=== PATIENT | female | born 1955 | race Caucasian/White ===

== ENCOUNTER 2016-08-23 12:30 | Inpatient (IN) ==
--- NOTE | 2016-08-23 13:06 | Emergency Department Note ---
Disposition Clinical Impression: Cough, Pneumonia, Asthma, Hypoxemia, Frail elderly, Abnormal EKG, Hypokalemia Disposition: Admitted As Inpatient Referrals: NO,PCP [Non-Partnered Physician] - Forms: ED Satisfaction Letter General Adult HPI - General Chief complaint: ED Upper Respiratory Infection Stated complaint: cold symptoms Time Seen by Provider: 08/23/16 12:48 Source: patient Limitations: no limitations - History of Present Illness HPI Narrative: 61-year-old female reports an emergent department complaining of a cough runny nose and sore throat. She describes a history of asthma, she does not take breathing medications regularly. She denies any oxygen requirement. There is no history of chest pain, no leg swelling or pain or coughing up blood. The patient has no personal history of CAD, PE DVT or cancer. There is no history of fever. The patient reports she has been symptomatic for about a week. The patient denies any acute abdominal pain. She has had a few episodes of nonbloody diarrhea. No vomiting. She states she lives alone. She is a nonsmoker. The patient reports no other acute complaints or concerns. Upper respiratory/bronchitic symptoms are reported. Per history she has a history of COPD as well as CHF. She denies any orthopnea. She has had some slight shortness of breath. Onset (ago): day(s) Pain Scale: 8 - Related Data Home Medications Medication Instructions Recorded Confirmed Calcium Carbonate/Vitamin D3 1 each PO BID 07/24/15 09/19/15 [Calcium 600 + D Tablet] Citalopram [CeleXA] 10 mg PO DAILY 07/24/15 09/19/15 Alendronate Sodium [Fosamax] 35 mg PO QWEEK 09/19/15 09/19/15 Aspirin 325 mg PO DAILY 09/19/15 09/19/15 Bisacodyl [Dulcolax] 5 mg PO DAILY PRN 09/19/15 09/19/15 Carbidopa/Levodopa 25 [Sinemet 1 each PO TID 09/19/15 09/19/15] Ibuprofen [Motrin] 200 mg PO Q6HR 09/19/15 09/19/15 Lisinopril [Zestril] 20 mg PO DAILY 09/19/15 09/19/15 Previous Rx's Medication Instructions Recorded Oxycodone HCl/Acetaminophen 1 tab PO Q6H PRN #26 tab 09/19/15 [Percocet 10-325 mg Tablet] Naproxen [Naprosyn] 500 mg PO BID #20 tablet 03/18/16 TraMADol [Ultram] 50 mg PO Q6HR #20 tablet 03/18/16 Nitrofurantoin (BID) [Macrobid] 100 mg PO BID #14 capsule 04/27/16 Azithromycin [Azithromycin 6-Tab 250 mg PO PER PKG DI #6 tab 06/02/16 Pack] Acetaminophen [Tylenol] 650 mg PO Q6HR 5 Days 08/16/16 Benzonatate [Tessalon] 200 mg PO TID PRN #10 capsule 08/18/16 PredniSONE 40 mg PO DAILY #5 tablet 08/18/16 Allergies Allergy/AdvReac Type Severity Reaction Status Date / Time No Known Allergies Allergy Verified 08/23/16 12:38 All systems ED: reviewed and negative except as stated. Past Medical History - Past Medical History Medical history: Reports: asthma, CHF, COPD, other Surgical history: Reports: no surgical history Psychiatric history: Reports: schizophrenia, other AIR QUALITY ENGINEER history: Reports: no AIR QUALITY ENGINEER history - Social History Smoking Status: Never smoker Smokeless Tobacco Status: No Alcohol use: Reports: none Drug use: Reports: none Physical Exam - General Limitations: no limitations General appearance: alert, in no apparent distress - Head Head exam: atraumatic - Eye Eye exam: Present: normal appearance, PERRL, EOMI. Absent: scleral icterus, conjunctival injection - ENT ENT exam: normal exam, normal oropharynx, mucous membranes moist, TM's normal bilaterally, normal external ear exam - Neck Neck exam: Present: normal inspection, full ROM, trachea midline. Absent: tenderness - Chest Chest inspection: Present: normal inspection, symmetric chest wall rise. Absent : tenderness - Respiratory Respiratory exam: Present: wheezes, prolonged expiratory phase. Absent: respiratory distress - Cardiovascular Cardiovascular exam: Present: regular rate, normal rhythm, normal heart sounds - Abdominal Exam Abdominal exam: Present: soft, Non-Tender. Absent: tenderness, distention, guarding, rebound, rigidity - Extremities Exam Extremities exam: Present: normal inspection, full ROM, normal capillary refill. Absent: tenderness, pedal edema, joint swelling, calf tenderness - Expanded Lower Extremity Exam Hip/Pelvis exam: Absent: tenderness Lower leg exam: Absent: Homans' sign Neurovascular/Tendon exam: Present: normal capillary refill, other (Chronic stasis changes lower extremities without significant edema.). Absent: pulse deficit, motor deficit, sensory deficit, tendon deficit - Back Exam Back exam: Absent: tenderness, CVA tenderness (R), CVA tenderness (L), vertebral tenderness - Neurological Exam Neurological exam: Present: alert, oriented X3, CN II-XII intact. Absent: motor sensory deficit - Psychiatric Psychiatric exam: Present: normal affect - Skin Skin exam: Present: warm, dry, intact, normal color. Absent: rash, cyanosis, diaphoresis, erythema, pallor, mottled Course Vital Signs Temperature 98.4 F 08/23/16 12:33 Pulse Rate 97 08/23/16 12:33 Respiratory Rate 18 08/23/16 12:33 Blood Pressure 149/87 08/23/16 12:33 O2 Sat by Pulse Oximetry 94 L 08/23/16 12:33 Temperature 98.4 F 08/23/16 12:33 Pulse Rate 101 08/23/16 16:30 Respiratory Rate 18 08/23/16 16:30 Blood Pressure 143/98 08/23/16 16:30 O2 Sat by Pulse Oximetry 96 08/23/16 16:30 Oxygen Delivery Oxygen Delivery Room Air Medical Decision Making - [facility] Narrative Medical decision making narrative: The patient has coarse breath sounds on the right and had initial low oxygen levels. She states she has a history of asthma. The patient appears to have pneumonia. The patient lives alone and stays alone at night, I discussed the case with her home health nurse who reports she feels very uncomfortable having the patient come back. She does not feel the patient is safe for home management. The patient does not feel comfortable going home either. The patient has an element of hypokalemia as well. Blood cultures were sent antibiotics were given breathing medications were ordered, Solu-Medrol was given. Potassium was ordered. Based on the patient's age, asthma, apparent pneumonitis, hypoxemia, and hypokalemia, I thought it would be best to observe the patient. I consulted the hospitalist for admission. - Lab Data Lab results reviewed: Yes I reviewed the patient's lab results. Result diagrams: 08/23/16 14:53 08/23/16 14:53 Lab Results 08/23/16 08/23/16 08/23/16 Range/Units 14:53 14:53 14:53 WBC 12.9 H (4.3-11.1) K/mcL RBC 4.83 (3.82-4.97) M/mcL Hgb 14.4 (11.5-15.4) g/dL Hct 41.4 (35.3-44.9) % MCV 85.7 (83.0-100.0) fL MCH 29.8 (28.0-33.3) pg MCHC 34.8 (31.6-35.5) g/dL RDW 12.9 (11.5-14.5) % Plt Count 348 (140-400) K/mcL MPV 10.0 (9.4-12.4) fL Immature Gran % 1.9 (0-4) % Seg Neutrophils % 76.5 % Lymphocytes % 15.3 % Monocytes % 4.7 % Eosinophils % 1.1 % Basophils % 0.5 % Neutrophils # 9.9 H (1.6-8.9) K/mcL Lymphocytes # 2.0 (0.6-4.6) K/mcL Monocytes # 0.6 (0.0-1.3) K/mcL Eosinophils # 0.1 (0.0-0.6) K/mcL Basophils # 0.1 (0.0-0.2) K/mcL Sodium 139 (136-145) mEq/L Potassium 2.7 L (3.5-4.5) mEq/L Chloride 96 L (98-109) mEq/L Carbon Dioxide 31 H (19-29) mEq/L BUN 27 H (7-20) mg/dL Creatinine 0.95 (0.57-1.11) mg/dL Est GFR ( Amer) > 60 (> 60) Est GFR (Non-Af Amer) 60 (> 60) BUN/Creatinine Ratio 28 H (6-26) Glucose 130 H (70-99) mg/dL Calculated Osmolality 295 (280-300) Lactic Acid (0.5-2.2) mmol/L Calcium 9.8 (8.6-10.8) mg/dL Total Bilirubin 0.4 (0.2-1.2) mg/dL Direct Bilirubin 0.2 (0.0-0.5) mg/dL Indirect Bilirubin 0.2 (0.0-1.2) mg/dL AST 24 (5-34) Units/L ALT 8 (0-55) Units/L Alkaline Phosphatase 114 (38-126) Units/L Troponin I 0.02 (0-0.03) ng/mL C-Reactive Protein 11 H (Less than 5) mg/L B-Natriuretic Peptide (0-100) pg/mL Serum Total Protein 8.1 (6.0-8.3) g/dL Albumin 3.6 (3.5-5.0) g/dL Globulin 4.5 H (2.4-3.5) g/dL Albumin/Globulin Ratio 0.8 L (1.1-2.2) 08/23/16 08/23/16 Range/Units 14:53 15:35 WBC (4.3-11.1) K/mcL RBC (3.82-4.97) M/mcL Hgb (11.5-15.4) g/dL Hct (35.3-44.9) % MCV (83.0-100.0) fL MCH (28.0-33.3) pg MCHC (31.6-35.5) g/dL RDW (11.5-14.5) % Plt Count (140-400) K/mcL MPV (9.4-12.4) fL Immature Gran % (0-4) % Seg Neutrophils % % Lymphocytes % % Monocytes % % Eosinophils % % Basophils % % Neutrophils # (1.6-8.9) K/mcL Lymphocytes # (0.6-4.6) K/mcL Monocytes # (0.0-1.3) K/mcL Eosinophils # (0.0-0.6) K/mcL Basophils # (0.0-0.2) K/mcL Sodium (136-145) mEq/L Potassium (3.5-4.5) mEq/L Chloride (98-109) mEq/L Carbon Dioxide (19-29) mEq/L BUN (7-20) mg/dL Creatinine (0.57-1.11) mg/dL Est GFR ( Amer) (> 60) Est GFR (Non-Af Amer) (> 60) BUN/Creatinine Ratio (6-26) Glucose (70-99) mg/dL Calculated Osmolality (280-300) Lactic Acid 2.0 (0.5-2.2) mmol/L Calcium (8.6-10.8) mg/dL Total Bilirubin (0.2-1.2) mg/dL Direct Bilirubin (0.0-0.5) mg/dL Indirect Bilirubin (0.0-1.2) mg/dL AST (5-34) Units/L ALT (0-55) Units/L Alkaline Phosphatase (38-126) Units/L Troponin I (0-0.03) ng/mL C-Reactive Protein (Less than 5) mg/L B-Natriuretic Peptide 14 (0-100) pg/mL Serum Total Protein (6.0-8.3) g/dL Albumin (3.5-5.0) g/dL Globulin (2.4-3.5) g/dL Albumin/Globulin Ratio (1.1-2.2) - Radiology Data Radiology results reviewed: Yes I reviewed the patient's radiology results.
[2016-08-23] MEDS ORDERED: Ipratropium/Albuterol Neb 3 ML IH ONE ×2 (13:14→16:13)
[2016-08-23 15:07] LABS: Basophils # 0.1 K/mcL (0.0-0.2); Basophils % 0.5 %; Eosinophils # 0.1 K/mcL (0.0-0.6); Eosinophils % 1.1 %; Hematocrit 41.4 % (35.3-44.9); Hemoglobin 14.4 g/dL (11.5-15.4); Immature Granulocytes % 1.9 % (0-4); Lymphocytes % 15.3 %; Mean Corpuscular HGB Conc 34.8 g/dL (31.6-35.5); Mean Corpuscular Hemoglobin 29.8 pg (28.0-33.3); Mean Corpuscular Volume 85.7 fL (83.0-100.0); Monocytes # 0.6 K/mcL (0.0-1.3); Monocytes % 4.7 %; Neutrophils # 9.9 K/mcL (1.6-8.9); Platelet Count 348 K/mcL (140-400); Red Blood Count 4.83 M/mcL (3.82-4.97); Red Cell Distribution Width 12.9 % (11.5-14.5); Segmented Neutrophils % 76.5 %
[2016-08-23 15:23] LABS: Alanine Aminotransferase 8 Units/L (0-55); Albumin 3.6 g/dL (3.5-5.0); Albumin/Globulin Ratio 0.8 (1.1-2.2); Alkaline Phosphatase 114 Units/L (38-126); Aspartate Amino Transferase 24 Units/L (5-34); BUN/Creatinine Ratio 28 (6-26); Bilirubin,Direct 0.2 mg/dL (0.0-0.5); Bilirubin,Indirect 0.2 mg/dL (0.0-1.2); Bilirubin,Total 0.4 mg/dL (0.2-1.2); Blood Urea Nitrogen 27 mg/dL (7-20); Calcium 9.8 mg/dL (8.6-10.8); Carbon Dioxide 31 mEq/L (19-29); Chloride 96 mEq/L (98-109); Globulin 4.5 g/dL (2.4-3.5); Glucose 130 mg/dL (70-99); Osmolality,Calculated 295 (280-300); Potassium 2.7 mEq/L (3.5-4.5); Sodium 139 mEq/L (136-145); Total Protein 8.1 g/dL (6.0-8.3); eGFR For African Americans > 60 (> 60); eGFR For Non-African Americans 60 (> 60)
[2016-08-23] MEDS ORDERED: Levofloxacin 750 MG/150 ML 750 MG/150 ML BAG IVPB ONE (16:13)
[2016-08-23] MEDS ORDERED: methylPREDNISolone 125 MG/2 ML VIAL IVP ONE (16:14)
[2016-08-23 16:25] LABS: C-Reactive Protein 11 mg/L (Less than 5)
[2016-08-23] MEDS ORDERED: Potassium Chloride Elixir 20 MEQ/15 ML UDC PO ONE (16:44)
[2016-08-23] MEDS ORDERED: 0.9 % Sodium Chloride 1,000 ML IVC ONE (16:45)
[2016-08-23] MEDS ORDERED: Potassium Chloride 20 MEQ, Lidocaine 1% 2 ML in D5% in Water 250 ML IVPB ONE (18:43)
[2016-08-23] MEDS ORDERED: Naloxone 0.4 MG/ML INJ IVP PRN (19:36)
[2016-08-23] MEDS ORDERED: Ondansetron ODT 4 MG TAB.RAPDIS SL PRN (19:36)
[2016-08-23 19:41] LABS: Magnesium 1.4 mg/dL (1.6-2.6); Phosphorous 2.2 mg/dL (2.3-4.7)
--- NOTE | 2016-08-23 19:59 | Internal Med History&Physical ---
Date of Encounter: 08/23/16 Time of Encounter: 19:45 Assessment and Plan (1) Pneumonia Current visit: Yes Status: Acute Patient with cough, anorexia, WBC 12.9. CXR showed mild patchy RLL disease and Right middle lobe collapse Levaquin 750mg daily duoneb treatments QID 0.9NS at 75mL/hr guafenisen Qualifiers: Pneumonia type: due to unspecified organism Laterality: right Lung location: lower lobe of lung Qualified Code(s): J18.9 - Pneumonia, unspecified organism (2) Asthma Current visit: Yes Status: Acute History of asthma, now with pneumonia duoneb treatments QID prednisone 20mg daily Qualifiers: Asthma severity: unspecified severity Asthma complication type: uncomplicated Qualified Code(s): J45.909 - Unspecified asthma, uncomplicated (3) Hypokalemia Current visit: Yes Status: Acute potassium of 2.7 given 40mEq PO in ED 20mEq IVPB check magnesium level continuous personnel monitor recheck chemistry in the morning (4) Rash Current visit: Yes Status: Acute Erythematous rash in right groin and under panus Nystatin powder ordered (5) DVT prophylaxis Current visit: Yes Status: Acute encourage ambulation anti-embolic stockings 40mg Lovenox SQ daily Internal Medicine - H&P: HPI Chief complaint: cough Admitted From: Emergency Dept Plans for Post Hospital Care: Home History of present illness: Ms. Meng is a 61 year old female with developmental delay, history of asthma, and HTN, presented to the ED today with complaints of cough and shortness of breath. This is the third time she has been to the ED in the last week for similar complaints. She reports she has had the cough for about a week, and endorses sinus pressure, body aches, and poor appetite, with some nausea. The cough is not productive, but she reports she feels like she has phlegm she can not "get up". She denies fever, abdominal pain, diarrhea, chest pain, palpitations. Evaluation in the ED was significant for CXR that showed mild, patchy RLL disease and right middle lobe collapse. She was negative for influenza. Labs revealed hypokalemia with potassium of 2.7, and her WBC was slightly elevated to 12.9. She was started on Levaquin for pneumonia. On exam , she is alert and oriented, in no distress. Her lungs sound course, heart has regular rate and rhythm. She has a rash in her right groin and under her panus. Past Med Surg Social Fam HX - Past Medical History Medical history: asthma, CHF, other (developmental delay, ) Psychiatric history: schizophrenia, other - Past Surgical History Surgical History: herniorrhaphy - Social History Smoking Status: Never smoker Smokeless Tobacco Status: No Alcohol use: none Drug use: none Current living situation: Home Activity Level: Uses cane/walker Internal Medicine - H&P: Meds Calcium Carbonate/Vitamin D3 [Calcium 600 + D Tablet] 1 each PO BID 07/24/15 [ History] Alendronate Sodium [Fosamax] 35 mg PO QWEEK 09/19/15 [History] Aspirin 325 mg PO DAILY 09/19/15 [History] Carbidopa/Levodopa 25/100 [Sinemet 25/100] 1 each PO TID 09/19/15 [History] Albuterol Neb [Proventil Neb] 2.5 mg IH TID 08/23/16 [History] Baclofen [Lioresal] 10 mg PO BID 08/23/16 [History] Hydrochlorothiazide 25 mg PO DAILY 08/23/16 [History] Omeprazole [PriLOSEC] 20 mg PO DAILY 08/23/16 [History] RisperiDONE [Risperidone] 0.5 mg PO DAILY 08/23/16 [History] Vicks Vaporub Oint [Vicks Vaporub ointment] 1 appl TP HS MDD Wash off every morning 08/23/16 [History] Allergies No Known Allergies Allergy (Verified 08/23/16 12:38) All Systems PM: A 10-system review of systems was performed and is negative for pertinent findings except as documented above in the HPI. - Constitutional Constitutional: anorexia, no chills, no fever(s), no night sweats - EENT Eyes: no change in vision, no discharge, no pain, no photophobia Nose, mouth and throat: nasal congestion, nasal discharge, sinus pressure, sore throat - Cardiovascular Cardiovascular ROS IM: dyspnea, no chest pain, no diaphoresis, no lightheadedness, no palpitations, no syncope - Respiratory Respiratory: cough, dyspnea, no wheezing, no excessive phlegm production - Gastrointestinal Gastrointestinal: no abdominal pain, no diarrhea, no hematemesis, no hematochezia, no melena, no nausea, no vomiting - Genitourinary Genitourinary: no change in urinary stream, no dysuria, no flank pain, no hematuria - Musculoskeletal Musculoskeletal ROS IM: no numbness, no tingling - Integumentary Integumentary IM: rash - Neurological Neurological ROS: no confusion, no convulsions, no focal weakness, no numbness, no tingling, no tremor(s) - Hematologic/Lymphatic Hematologic/Lymphatic: no easy bruising - Constitutional Vitals: Temp Pulse Resp BP Pulse Ox 97.9 F 84 16 156/86 93 L 08/23/16 19:16 08/23/16 19:16 08/23/16 19:16 08/23/16 19:16 08/23/16 19:16 General appearance: Present: A&O X 3, no acute distress - Head Head exam: Present: atraumatic, normocephalic - Eye Eye exam: Present: PERRL, conjuntiva pink, sclera anicteric Pupils: Present: PERRL - Neck Neck exam general surgery: Present: supple, trachea midline. Absent: lymphadenopathy - Respiratory Respiratory exam: Present: rhonchi. Absent: accessory muscle use, rales, wheezes - Cardiovascular Cardiovascular exam: Present: RRR, +S1, +S2. Absent: diastolic murmur, gallop, rubs, systolic murmur - GI/Abdominal GI/Abdominal exam: Present: normal bowel sounds, soft, no peritoneal signs. Absent: distended, tenderness - Extremities Exam Extremities exam: Present: warm, radial pulses palpable and symetrical. Absent : calf tenderness, cyanotic, pedal edema - Neurological Exam Neurological exam: Present: CN II-XII intact, oriented X3, no focal deficits. Absent: facial droop, speech deficit - Skin Skin exam: Present: rash (right groin and under panus) Internal Med - H&P Results - Labs CBC & Chem 7: 08/23/16 14:53 08/23/16 14:53
[2016-08-23] MEDS: Famotidine 20 MG TABLET PO SCH (20:22)
[2016-08-23] MEDS: Carbidopa/Levodopa 25/100 TABLET PO SCH (20:22)
[2016-08-23] MEDS: Nystatin POWDER 30 GM BOTTLE TP SCH (20:23)
[2016-08-23] MEDS: (Calcium Carbonate/Vitamin D3 [Calcium 600 + D Tablet PO SCH (20:24)
[2016-08-23] MEDS ORDERED: Baclofen 10 MG TABLET PO SCH (21:00)
[2016-08-23] MEDS ORDERED: Famotidine 20 MG TABLET PO SCH (21:00)
[2016-08-23] MEDS: Ipratropium/Albuterol Neb 3 ML IH SCH (22:27)
[2016-08-23] MEDS ORDERED: Magnesium Sulfate 1 GM in D5% in Water 100 ML IVPB ONE ×2 (22:37→22:41)
[2016-08-23] MEDS ORDERED: Magnesium Sulfate 2 GM in D5% in Water 100 ML IVPB ONE (23:00)
[2016-08-23] MEDS: 0.9 % Sodium Chloride 1,000 ML IVC SCH (23:16)
[2016-08-24] MEDS: Ipratropium/Albuterol Neb 3 ML IH SCH ×4 (04:48→22:19)
[2016-08-24 05:16] LABS: Basophils % 0.2 %; Hematocrit 39.6 % (35.3-44.9); Hemoglobin 13.6 g/dL (11.5-15.4); Immature Granulocytes % 1.9 % (0-4); Lymphocytes % 7.5 %; Mean Corpuscular HGB Conc 34.3 g/dL (31.6-35.5); Mean Corpuscular Hemoglobin 29.4 pg (28.0-33.3); Mean Corpuscular Volume 85.5 fL (83.0-100.0); Mean Platelet Volume 10.3 fL (9.4-12.4); Monocytes # 0.1 K/mcL (0.0-1.3); Neutrophils # 11.3 K/mcL (1.6-8.9); Platelet Count 338 K/mcL (140-400); Red Blood Count 4.63 M/mcL (3.82-4.97); Red Cell Distribution Width 12.9 % (11.5-14.5); Segmented Neutrophils % 89.4 %
[2016-08-24 05:29] LABS: BUN/Creatinine Ratio 22 (6-26); Blood Urea Nitrogen 20 mg/dL (7-20); Calcium 8.9 mg/dL (8.6-10.8); Carbon Dioxide 23 mEq/L (19-29); Chloride 102 mEq/L (98-109); Glucose 176 mg/dL (70-99); Magnesium 2.4 mg/dL (1.6-2.6); Osmolality,Calculated 291 (280-300); Phosphorous 2.4 mg/dL (2.3-4.7); Potassium 3.4 mEq/L (3.5-4.5); Sodium 137 mEq/L (136-145); eGFR For African Americans > 60 (> 60); eGFR For Non-African Americans > 60 (> 60)
[2016-08-24] MEDS: *HR* Enoxaparin 40 MG/0.4 ML SYRINGE SQ SCH (05:48)
[2016-08-24] MEDS ORDERED: hydroCHLOROthiazide 25 MG TABLET PO SCH (09:00)
[2016-08-24] MEDS ORDERED: Levofloxacin 750 MG/150 ML 750 MG/150 ML BAG IVPB SCH (09:00)
[2016-08-24] MEDS: risperiDONE 0.25 MG TABLET PO SCH (09:40)
[2016-08-24] MEDS: predniSONE 20 MG TABLET PO SCH (09:40)
[2016-08-24] MEDS: Aspirin 325 MG TABLET PO SCH (09:40)
[2016-08-24] MEDS: Nystatin POWDER 30 GM BOTTLE TP SCH ×2 (09:41→21:24)
[2016-08-24] MEDS: (Calcium Carbonate/Vitamin D3 [Calcium 600 + D Tablet PO SCH ×2 (09:41→21:28)
[2016-08-24] MEDS: Carbidopa/Levodopa 25/100 TABLET PO SCH ×3 (09:44→20:59)
[2016-08-24] MEDS: 0.9 % Sodium Chloride 1,000 ML IVC SCH ×2 (10:37→22:21)
--- NOTE | 2016-08-24 12:33 | Internal Med Progress Note ---
<Miky Maravilla - Last Filed: 08/24/16 12:58> Date of Encounter: 08/24/16 Time of Encounter: 12:31 - Assessment and plan (1) Pneumonia Current Visit: Yes Status: Acute Assessment and plan: Aspiration vs. CAP vs. Viral Influenza panel negative Was tachycardic on admission.. has since resolved. Afebrile, no tachypnea Patient with cough, anorexia, WBC 12.6. CXR showed mild patchy RLL disease and Right middle lobe collapse Repeat CXR reveals improving but consistent right middle lobe volume loss Has coarse diffuse breath sounds Levaquin 750mg -- one dose given switched to Unasyn -- 1.5g q6h d/t possible aspiration pneumonia. duoneb treatments 0.9NS at 75mL/hr guafenisen Chest X-Ray 08/24/16 08:00 IMPRESSION: Improving but persistent right middle lobe volume loss. D/ / 08/24/2016 09:04:55 Harley Richardson MD / [facility] Interpreting Provider: Harley Richardson MD Qualifiers: Pneumonia type: due to unspecified organism Laterality: right Lung location: lower lobe of lung Qualified Code(s): J18.9 - Pneumonia, unspecified organism (2) Asthma Current Visit: Yes Status: Acute Assessment and plan: History of asthma duoneb treatments QID prednisone 20mg daily Qualifiers: Asthma severity: unspecified severity Asthma complication type: uncomplicated Qualified Code(s): J45.909 - Unspecified asthma, uncomplicated (3) Hypokalemia Current Visit: Yes Status: Acute Assessment and plan: initial potassium of 2.7, now is 3.4 given 40mEq PO in ED 20mEq IVPB yesterday Magnesium was low at 1.4. 2G mag sulf given continuous radiation monitor recheck chemistry in the morning (4) Rash Current Visit: Yes Status: Acute Assessment and plan: rash in right groin and under panus Nystatin powder (5) DVT prophylaxis Current Visit: Yes Status: Acute Assessment and plan: 40mg lovenox qday encourage ambulation anti-embolic stockings - Subjective Interval history: Patient seen and examined. Admitted yesterday for hypoxia 2/2 possible PNA. Awake and alert this am. Pleasant. NAD. Denies CP and SOB. Has cough productive of remy sputum. Vitals stable. Afebrile. LLQ tenderness, nausea. No other complaints. - Constitutional Vitals: Temp Pulse Resp BP Pulse Ox 97.6 F 68 16 142/73 93 L 08/24/16 06:57 08/24/16 06:57 08/24/16 06:57 08/24/16 06:57 08/24/16 09:25 General appearance: Present: A&O X 3, no acute distress - Head Head exam: Present: atraumatic, normocephalic - Eye Eye exam: Present: PERRL, conjuntiva pink, sclera anicteric Pupils: Present: PERRL - Neck Neck exam general surgery: Present: supple, trachea midline. Absent: lymphadenopathy - Respiratory Respiratory exam: Present: decreased breath sounds, rhonchi, wheezes - Cardiovascular Cardiovascular exam: Present: RRR, +S1, +S2 - GI/Abdominal GI/Abdominal exam: Present: normal bowel sounds, soft, tenderness (LLQ). Absent : firm, guarding - Extremities Exam Extremities exam: Present: warm, radial pulses palpable and symetrical. Absent : calf tenderness, cyanotic, pedal edema - Neurological Exam Neurological exam: Present: CN II-XII intact, oriented X3, no focal deficits. Absent: facial droop, speech deficit - Skin Skin exam: Present: dry, intact Internal Medicine: Result - Labs CBC & Chem 7: 08/24/16 04:48 08/24/16 04:48 Labs: Short CBC 08/24/16 Range/Units 04:48 WBC 12.6 H (4.3-11.1) K/mcL Hgb 13.6 (11.5-15.4) g/dL Hct 39.6 (35.3-44.9) % Plt Count 338 (140-400) K/mcL Neutrophils # 11.3 H (1.6-8.9) K/mcL BMP 08/24/16 04:48 Sodium 137 Potassium 3.4 L Chloride 102 Carbon Dioxide 23 BUN 20 Creatinine 0.92 Glucose 176 H Calcium 8.9 - Impressions Impressions Chest X-Ray 08/24/16 08:00 IMPRESSION: Improving but persistent right middle lobe volume loss. D/ / 08/24/2016 09:04:55 Harley Richardson MD / [facility] Interpreting Provider: Harley Richardson MD Consult Discharge Plan - Plan Referrals: Radha Bird, [employer]HICLE SUPERVISOR [Primary Care Provider] - <[place] - Last Filed: 08/24/16 13:54> Date of Encounter: 08/24/16 - Constitutional Vitals: Temp Pulse Resp BP Pulse Ox 98.3 F 98 17 145/67 96 08/24/16 12:39 08/24/16 12:39 08/24/16 12:39 08/24/16 12:39 08/24/16 12:39 Internal Medicine: Result - Labs CBC & Chem 7: 08/24/16 04:48 08/24/16 04:48 Labs: Short CBC 08/24/16 Range/Units 04:48 WBC 12.6 H (4.3-11.1) K/mcL Hgb 13.6 (11.5-15.4) g/dL Hct 39.6 (35.3-44.9) % Plt Count 338 (140-400) K/mcL Neutrophils # 11.3 H (1.6-8.9) K/mcL BMP 08/24/16 04:48 Sodium 137 Potassium 3.4 L Chloride 102 Carbon Dioxide 23 BUN 20 Creatinine 0.92 Glucose 176 H Calcium 8.9 - Impressions Impressions Chest X-Ray 08/24/16 08:00 IMPRESSION: Improving but persistent right middle lobe volume loss. D/ / 08/24/2016 09:04:55 Harley Richardson MD / [facility] Interpreting Provider: Harley Richardson MD - Attending Attestation I examined this patient and my medical decision-making was reviewed with Dr. Maravilla. I agree with the documented findings, disposition and treatment plan as described except to the extent set forth below. Patient feeling better. Exam reveals pt. sitting in bed and in mild distress. Creps. right lower lobe. 1. Suspected aspiration pneumonia - Change abx to unasyn. MARITZA leone. 2. Asthma High risk due to unresolved pneumonia and risk of worsening respiratory failure Brenton [place] MD
[2016-08-24] MEDS: Ampicillin/Sulbactam 1,500 MG in 0.9 % Sodium Chloride Mini Bag 100 ML IVPB SCH ×2 (14:16→18:12)
[2016-08-24] MEDS: Acetaminophen 325 MG TABLET PO PRN (18:15)
[2016-08-24] MEDS: Famotidine 20 MG TABLET PO SCH (21:00)
[2016-08-25] MEDS: Ampicillin/Sulbactam 1,500 MG in 0.9 % Sodium Chloride Mini Bag 100 ML IVPB SCH ×4 (00:05→19:02)
[2016-08-25] MEDS: Acetaminophen 325 MG TABLET PO PRN ×2 (00:06→06:05)
[2016-08-25 04:23] LABS: Basophils % 0.2 %; Hematocrit 37.4 % (35.3-44.9); Hemoglobin 12.9 g/dL (11.5-15.4); Immature Granulocytes % 2.3 % (0-4); Lymphocytes # 1.8 K/mcL (0.6-4.6); Mean Corpuscular HGB Conc 34.5 g/dL (31.6-35.5); Mean Corpuscular Hemoglobin 29.9 pg (28.0-33.3); Mean Corpuscular Volume 86.6 fL (83.0-100.0); Mean Platelet Volume 10.6 fL (9.4-12.4); Monocytes % 5.2 %; Neutrophils # 16.6 K/mcL (1.6-8.9); Platelet Count 268 K/mcL (140-400); Red Blood Count 4.32 M/mcL (3.82-4.97); Segmented Neutrophils % 83.3 %
[2016-08-25 04:35] LABS: BUN/Creatinine Ratio 30 (6-26); Blood Urea Nitrogen 21 mg/dL (7-20); Carbon Dioxide 21 mEq/L (19-29); Chloride 109 mEq/L (98-109); Glucose 119 mg/dL (70-99); Magnesium 2.3 mg/dL (1.6-2.6); Osmolality,Calculated 294 (280-300); Potassium 3.6 mEq/L (3.5-4.5); Sodium 140 mEq/L (136-145); eGFR For African Americans > 60 (> 60); eGFR For Non-African Americans > 60 (> 60)
[2016-08-25] MEDS: Ipratropium/Albuterol Neb 3 ML IH SCH ×5 (05:00→22:20)
[2016-08-25] MEDS: *HR* Enoxaparin 40 MG/0.4 ML SYRINGE SQ SCH (06:06)
[2016-08-25] MEDS: Aspirin 325 MG TABLET PO SCH (10:10)
[2016-08-25] MEDS: predniSONE 20 MG TABLET PO SCH (10:11)
[2016-08-25] MEDS: Carbidopa/Levodopa 25/100 TABLET PO SCH ×3 (10:11→20:44)
[2016-08-25] MEDS: (Calcium Carbonate/Vitamin D3 [Calcium 600 + D Tablet PO SCH ×2 (10:11→20:47)
[2016-08-25] MEDS: risperiDONE 0.25 MG TABLET PO SCH (10:11)
[2016-08-25] MEDS: 0.9 % Sodium Chloride 1,000 ML IVC SCH ×2 (10:20→20:53)
[2016-08-25] MEDS: Nystatin POWDER 30 GM BOTTLE TP SCH ×2 (10:21→20:45)
--- NOTE | 2016-08-25 11:25 | Internal Med Progress Note ---
<Miky Maravilla - Last Filed: 08/25/16 11:23> Date of Encounter: 08/25/16 Time of Encounter: 11:23 - Assessment and plan (1) Pneumonia Current Visit: Yes Status: Acute Assessment and plan: Aspiration vs. CAP vs. Viral Influenza panel negative Was tachycardic on admission.. has since resolved. Afebrile, no tachypnea, not tachycardic Patient with cough, anorexia, WBC 19.9 today, up from 12.6 yesterday. Has coarse diffuse breath sounds and distant breath sounds on right compared to left. Levaquin 750mg -- one dose given switched to Unasyn -- 1.5g q6h (day 2) d/t possible aspiration pneumonia Chest CT revealed continued volume loss in right middle lobe with mucous plugging. Pulm was called recommended pulmonary toilet and bronchodilators initially. If symptoms persist will possibly go for bronchoscopy duoneb treatments 0.9NS at 75mL/hr guafenisen Chest X-Ray 08/24/16 08:00 IMPRESSION: Improving but persistent right middle lobe volume loss. D/ / 08/24/2016 09:04:55 Harley Rcihardson MD / [facility] Interpreting Provider: Harley Richardson MD Chest CT 08/25/16 08:51 IMPRESSION: 1. There are areas of volume loss with associated mucous plugging in the right middle lobe and right lower lobe, which are new since a previous CT of the abdomen and pelvis on 04/27/2016. 2. There are several noncalcified pulmonary nodules noted in both lungs, most pronounced in the lower lobes. There is a 5 mm right lower lobe pulmonary nodule (series 505, image 36), and a left lower lobe pulmonary nodule (series 505, image 58). Please see the follow-up imaging recommendations below. 3. Right adrenal adenoma, stable. Qualifiers: Pneumonia type: due to unspecified organism Laterality: right Lung location: lower lobe of lung Qualified Code(s): J18.9 - Pneumonia, unspecified organism (2) Asthma Current Visit: Yes Status: Acute Assessment and plan: History of asthma duoneb treatments QID prednisone 20mg daily Qualifiers: Asthma severity: unspecified severity Asthma complication type: uncomplicated Qualified Code(s): J45.909 - Unspecified asthma, uncomplicated (3) Hypokalemia Current Visit: Yes Status: Acute Assessment and plan: initial potassium of 2.7 given 40mEq PO in ED 20mEq IVPB yesterday Magnesium was low at 1.4. 2G mag sulf given continuous front desk monitor 08/25/15: K+ 3.6 today, no indications to replete today. May need repletion in future if K+ drops monitor with chem 7 in am (4) Rash Current Visit: Yes Status: Acute Assessment and plan: rash in right groin and under panus Nystatin powder (5) DVT prophylaxis Current Visit: Yes Status: Acute Assessment and plan: 40mg lovenox qday encourage ambulation anti-embolic stockings - Subjective Interval history: Patient seen and examined. Admitted 08/23/16 for hypoxia 2/2 possible PNA. Awake and alert this am. Pleasant. NAD. Denies CP and SOB. Has cough productive of remy sputum. Vitals stable. Afebrile. LLQ tenderness, nausea. No other complaints. - Constitutional Vitals: Temp Pulse Resp BP Pulse Ox 98.0 F 74 16 153/91 93 L 08/25/16 10:54 08/25/16 10:54 08/25/16 10:54 08/25/16 10:54 08/25/16 10:54 General appearance: Present: A&O X 3, no acute distress - Head Head exam: Present: atraumatic, normocephalic - Eye Eye exam: Present: PERRL, conjuntiva pink, sclera anicteric Pupils: Present: PERRL - Neck Neck exam general surgery: Present: supple, trachea midline. Absent: lymphadenopathy - Respiratory Respiratory exam: Present: decreased breath sounds (decreased on right compared to left), rhonchi, wheezes. Absent: accessory muscle use, rales, respiratory distress - Cardiovascular Cardiovascular exam: Present: RRR, +S1, +S2. Absent: diastolic murmur, gallop, rubs, systolic murmur - GI/Abdominal GI/Abdominal exam: Present: normal bowel sounds, soft, tenderness (diffuse), no peritoneal signs. Absent: distended - Extremities Exam Extremities exam: Present: warm, radial pulses palpable and symetrical. Absent : calf tenderness, cyanotic, pedal edema - Neurological Exam Neurological exam: Present: CN II-XII intact, oriented X3, no focal deficits. Absent: facial droop, speech deficit - Skin Skin exam: Present: dry, intact Internal Medicine: Result - Labs CBC & Chem 7: 08/25/16 03:49 08/25/16 03:49 Labs: Short CBC 08/25/16 Range/Units 03:49 WBC 19.9 H D (4.3-11.1) K/mcL Hgb 12.9 (11.5-15.4) g/dL Hct 37.4 (35.3-44.9) % Plt Count 268 (140-400) K/mcL Neutrophils # 16.6 H (1.6-8.9) K/mcL BMP 08/25/16 03:49 Sodium 140 Potassium 3.6 Chloride 109 Carbon Dioxide 21 BUN 21 H Creatinine 0.71 Glucose 119 H Calcium 8.0 L - Impressions Impressions Chest CT 08/25/16 08:51 IMPRESSION: 1. There are areas of volume loss with associated mucous plugging in the right middle lobe and right lower lobe which are new since a previous CT of the abdomen pelvis on 04/27/2016. 2. There are several noncalcified pulmonary nodules noted in both lungs, most pronounced in the lower lobes. There is a 5 mm right lower lobe pulmonary nodule (series 505, image 36), in the left lower lobe pulmonary nodule (series 505, image 58). Please see the follow-up imaging recommendations below. 3. Right adrenal adenoma, stable. The Fleischner society pulmonary nodule recommendations are usually for follow-up and management of pulmonary nodules smaller than 8 mm detected incidentally on non-screening CT. Nodule size between 4-6 mm low risk patients - follow-up at 12 months and if no change, no further imaging needed high risk patients - initial follow-up CT at 6-12 months and then at 18-24 months if no change Note: newly detected indeterminate nodule in persons 35 years of age or older. low risk patients - minimal or absent history of smoking and or other known risk factors high risk patients - history of smoking or of other known risk factors Based on current guidelines*, a follow-up unenhanced low-dose CT can be obtained at clinical discretion. *Vanessa H, Festus JM, Nic G, Willard CJ, Mik GA, Vannesa DP, et al. Guidelines for Management of Small Pulmonary Nodules Detected on CT Scans: A Statement from the Fleischner Society. Radiology 2005;237:395-400. D/ / Umang Collins MD / Umang Collins MD Interpreting Provider: Umang Collins MD Abdomen/Pelvis CT 08/25/16 09:01 IMPRESSION: Findings of the chest reported separately No acute abnormality noted of the abdomen or pelvis. D/ / Morris Aviles MD / Morris Aviles MD Interpreting Provider: Morris Aviles MD - VTE Documentation of Mechanical Device: Graduated compression elastic hosiery Consult Discharge Plan - Plan Referrals: Radha Bird RENAL TECHNICIAN [Primary Care Provider] - <Jenn Freire - Last Filed: 08/25/16 16:36> Date of Encounter: 08/25/16 - Constitutional Vitals: Temp Pulse Resp BP Pulse Ox 97.9 F 88 16 163/94 97 08/25/16 14:42 08/25/16 14:42 08/25/16 16:01 08/25/16 14:42 08/25/16 16:01 Internal Medicine: Result - Labs CBC & Chem 7: 08/25/16 03:49 08/25/16 03:49 Labs: Short CBC 08/25/16 Range/Units 03:49 WBC 19.9 H D (4.3-11.1) K/mcL Hgb 12.9 (11.5-15.4) g/dL Hct 37.4 (35.3-44.9) % Plt Count 268 (140-400) K/mcL Neutrophils # 16.6 H (1.6-8.9) K/mcL BMP 08/25/16 03:49 Sodium 140 Potassium 3.6 Chloride 109 Carbon Dioxide 21 BUN 21 H Creatinine 0.71 Glucose 119 H Calcium 8.0 L - Impressions Impressions Chest CT 08/25/16 08:51 IMPRESSION: 1. There are areas of volume loss with associated mucous plugging in the right middle lobe and right lower lobe, which are new since a previous CT of the abdomen and pelvis on 04/27/2016. 2. There are several noncalcified pulmonary nodules noted in both lungs, most pronounced in the lower lobes. There is a 5 mm right lower lobe pulmonary nodule (series 505, image 36), and a left lower lobe pulmonary nodule (series 505, image 58). Please see the follow-up imaging recommendations below. 3. Right adrenal adenoma, stable. The Fleischner Society pulmonary nodule recommendations are usually for follow-up and management of pulmonary nodules smaller than 8 mm detected incidentally on non-screening CT. Nodule size between 4-6 mm low risk patients - follow-up at 12 months and if no change, no further imaging needed high risk patients - initial follow-up CT at 6-12 months and then at 18-24 months if no change Note: newly detected indeterminate nodule in persons 35 years of age or older. low risk patients - minimal or absent history of smoking and or other known risk factors high risk patients - history of smoking or of other known risk factors Based on current guidelines*, a follow-up unenhanced low-dose CT can be obtained at clinical discretion. *Vanessa H, Festus JM, Nic G, Willard CJ, Mik JR, Vannesa DP, et al. Guidelines for Management of Small Pulmonary Nodules Detected on CT Scans: A Statement from the Fleischner Society. Radiology 2005;237:395-400. D/ / 08/25/2016 11:23:14 Umang Collins MD / [facility] Interpreting Provider: Umang Collins MD Abdomen/Pelvis CT 08/25/16 09:01 IMPRESSION: Findings of the chest reported separately. No acute abnormality noted of the abdomen or pelvis. D/ / 08/25/2016 11:22:53 Morris Aviles MD / Marni Maravilla Interpreting Provider: Morris Aviles MD - Attending Attestation I examined this patient and my medical decision-making was reviewed with the Resident Physician. I agree with the documented findings, disposition and treatment plan as described
[2016-08-25] MEDS ORDERED: Levofloxacin 750 MG/150 ML 750 MG/150 ML BAG IVPB SCH (17:00)
[2016-08-25] MEDS ORDERED: cloNIDine HCl 0.1 MG TABLET PO ONE (20:01)
[2016-08-25] MEDS: Famotidine 20 MG TABLET PO SCH (20:44)
[2016-08-26] MEDS: 0.9 % Sodium Chloride 1,000 ML IVC SCH (01:04)
[2016-08-26] MEDS: Ampicillin/Sulbactam 1,500 MG in 0.9 % Sodium Chloride Mini Bag 100 ML IVPB SCH ×4 (01:24→18:34)
[2016-08-26] MEDS: Ipratropium/Albuterol Neb 3 ML IH SCH ×4 (04:26→23:04)
[2016-08-26] MEDS: *HR* Enoxaparin 40 MG/0.4 ML SYRINGE SQ SCH (05:58)
[2016-08-26 06:22] LABS: Basophils # 0.1 K/mcL (0.0-0.2); Basophils % 0.4 %; Eosinophils % 0.2 %; Hematocrit 42.7 % (35.3-44.9); Hemoglobin 13.8 g/dL (11.5-15.4); Immature Granulocytes % 1.9 % (0-4); Lymphocytes % 13.9 %; Mean Corpuscular HGB Conc 32.3 g/dL (31.6-35.5); Mean Corpuscular Hemoglobin 29.4 pg (28.0-33.3); Mean Platelet Volume 10.5 fL (9.4-12.4); Monocytes # 0.9 K/mcL (0.0-1.3); Monocytes % 6.3 %; Neutrophils # 10.8 K/mcL (1.6-8.9); Platelet Count 246 K/mcL (140-400); Red Blood Count 4.69 M/mcL (3.82-4.97); Red Cell Distribution Width 13.3 % (11.5-14.5); Segmented Neutrophils % 77.3 %
[2016-08-26 06:25] LABS: BUN/Creatinine Ratio 18 (6-26); Blood Urea Nitrogen 13 mg/dL (7-20); Calcium 8.5 mg/dL (8.6-10.8); Carbon Dioxide 18 mEq/L (19-29); Chloride 110 mEq/L (98-109); Glucose 92 mg/dL (70-99); Osmolality,Calculated 294 (280-300); Sodium 142 mEq/L (136-145); eGFR For African Americans > 60 (> 60); eGFR For Non-African Americans > 60 (> 60)
[2016-08-26 06:39] LABS: Potassium 3.8 mEq/L (3.5-4.5)
[2016-08-26] MEDS: Carbidopa/Levodopa 25/100 TABLET PO SCH ×2 (08:53→18:32)
[2016-08-26] MEDS: risperiDONE 0.25 MG TABLET PO SCH (08:53)
[2016-08-26] MEDS: predniSONE 20 MG TABLET PO SCH (08:53)
[2016-08-26] MEDS: (Calcium Carbonate/Vitamin D3 [Calcium 600 + D Tablet PO SCH ×2 (08:54→20:04)
[2016-08-26] MEDS: Nystatin POWDER 30 GM BOTTLE TP SCH ×2 (08:54→20:04)
[2016-08-26] MEDS: Acetaminophen 325 MG TABLET PO PRN ×2 (08:59→18:42)
[2016-08-26] MEDS: Aspirin 325 MG TABLET PO SCH (08:59)
--- NOTE | 2016-08-26 09:24 | Electrocardiograph Report ---
[facility] Test Date: 2016-08-23 Pat Name: Maryjo Meng Department: 103 Room: 3A42 Gender: F Systems Eng: ROBERTO : 1955 Requested By: Ilya Guillen Order Number: [id number] Reading MD: Juanjose Magallanes MD Measurements Intervals [place] Rate: 88 P: 50 [place]: 190 QRS: 22 QRSD: 81 T: 33 QT: 365 QTc: 411 Interpretive Statements SINUS RHYTHM NONSPECIFIC ST \T\ T-WAVE ABNORMALITY Electronically Signed On 08-26-16 09:23:06 EST by Juanjose Magallanes MD
[2016-08-26] MEDS: amLODIPine 5 MG TABLET PO SCH (10:12)
--- NOTE | 2016-08-26 12:25 | Internal Med Progress Note ---
<Miky Maravilla - Last Filed: 08/26/16 14:13> Date of Encounter: 08/26/16 Time of Encounter: 12:23 - Assessment and plan (1) Pneumonia Current Visit: Yes Status: Acute Assessment and plan: Aspiration vs. CAP vs. Viral Influenza panel negative Was tachycardic on admission.. has since resolved. Breathing easier today. Afebrile, no tachypnea, not tachycardic Patient with cough, anorexia, WBC 14, down from 19 yesterday Has coarse diffuse breath sounds and distant breath sounds on right compared to left. Levaquin 750mg -- one dose given switched to Unasyn -- 1.5g q6h (day 3) d/t possible aspiration pneumonia Chest CT revealed continued volume loss in right middle lobe with mucous plugging. Pulm was called recommended pulmonary toilet and bronchodilators. No need for bronchoscopy currently. If she doesn't continue to improve, may need bronch. Conservative treatments first. duoneb treatments 0.9NS at 75mL/hr guafenisen Qualifiers: Pneumonia type: due to unspecified organism Laterality: right Lung location: lower lobe of lung Qualified Code(s): J18.9 - Pneumonia, unspecified organism (2) Asthma Current Visit: Yes Status: Acute Assessment and plan: History of asthma duoneb treatments QID prednisone 20mg daily Qualifiers: Asthma severity: unspecified severity Asthma complication type: uncomplicated Qualified Code(s): J45.909 - Unspecified asthma, uncomplicated (3) Hypokalemia Current Visit: Yes Status: Acute Assessment and plan: initial potassium of 2.7 given 40mEq PO in ED 20mEq IVPB yesterday Magnesium was low at 1.4. 2G mag sulf given continuous cardiac technologist 08/25/15: K+ 3.6 today, no indications to replete today. May need repletion in future if K+ drops 08/26/15: K+ 3.8 monitor with chem 7 in am (4) Rash Current Visit: Yes Status: Acute Assessment and plan: rash in right groin and under panus Nystatin powder (5) DVT prophylaxis Current Visit: Yes Status: Acute Assessment and plan: 40mg lovenox qday encourage ambulation anti-embolic stockings - Subjective Interval history: Patient seen and examined. Awake and alert this am. Pleasant. NAD. Feeling better this morning. Has been able to bring up more sputum with respiratory therapy. Denies CP and SOB. Has cough productive of remy sputum. Vitals stable. Afebrile. No other complaints. - Constitutional Vitals: Temp Pulse Resp BP Pulse Ox 98.1 F 90 16 143/80 94 L 08/26/16 11:53 08/26/16 11:53 08/26/16 11:53 08/26/16 11:53 08/26/16 11:53 General appearance: Present: A&O X 3, no acute distress - Head Head exam: Present: atraumatic, normocephalic - Eye Eye exam: Present: PERRL, conjuntiva pink, sclera anicteric Pupils: Present: PERRL - Neck Neck exam general surgery: Present: supple, trachea midline. Absent: lymphadenopathy - Respiratory Respiratory exam: Present: decreased breath sounds, rhonchi, wheezes. Absent: respiratory distress - Cardiovascular Cardiovascular exam: Present: RRR, +S1, +S2. Absent: systolic murmur - GI/Abdominal GI/Abdominal exam: Present: normal bowel sounds, soft, tenderness (diffuse, chronic), no peritoneal signs. Absent: distended - Extremities Exam Extremities exam: Present: warm, radial pulses palpable and symetrical. Absent : calf tenderness, cyanotic, pedal edema - Neurological Exam Neurological exam: Present: CN II-XII intact, oriented X3, no focal deficits. Absent: facial droop, speech deficit - Skin Skin exam: Present: dry, intact Internal Medicine: Result - Labs CBC & Chem 7: 08/26/16 04:37 08/26/16 04:37 Labs: Short CBC 08/26/16 Range/Units 04:37 WBC 14.0 H (4.3-11.1) K/mcL Hgb 13.8 (11.5-15.4) g/dL Hct 42.7 (35.3-44.9) % Plt Count 246 (140-400) K/mcL Neutrophils # 10.8 H (1.6-8.9) K/mcL BMP 08/26/16 04:37 Sodium 142 Potassium 3.8 Chloride 110 H Carbon Dioxide 18 L BUN 13 Creatinine 0.74 Glucose 92 Calcium 8.5 L - VTE Documentation of Mechanical Device: Graduated compression elastic hosiery Consult Discharge Plan - Plan Referrals: Radha Bird, NIGHT CLERK AUDITOR [Primary Care Provider] - <Jenn Freire - Last Filed: 08/26/16 19:08> Date of Encounter: 08/26/16 - Constitutional Vitals: Temp Pulse Resp BP Pulse Ox 97.7 F 98 18 142/84 96 08/26/16 14:25 08/26/16 14:25 08/26/16 15:35 08/26/16 14:25 08/26/16 15:35 Internal Medicine: Result - Labs CBC & Chem 7: 08/26/16 04:37 08/26/16 04:37 Labs: Short CBC 08/26/16 Range/Units 04:37 WBC 14.0 H (4.3-11.1) K/mcL Hgb 13.8 (11.5-15.4) g/dL Hct 42.7 (35.3-44.9) % Plt Count 246 (140-400) K/mcL Neutrophils # 10.8 H (1.6-8.9) K/mcL BMP 08/26/16 04:37 Sodium 142 Potassium 3.8 Chloride 110 H Carbon Dioxide 18 L BUN 13 Creatinine 0.74 Glucose 92 Calcium 8.5 L - Attending Attestation I examined this patient and my medical decision-making was reviewed with the Resident Physician. I agree with the documented findings, disposition and treatment plan as described .
[2016-08-26] MEDS: Famotidine 20 MG TABLET PO SCH (20:04)
[2016-08-27] MEDS: Ampicillin/Sulbactam 1,500 MG in 0.9 % Sodium Chloride Mini Bag 100 ML IVPB SCH ×2 (00:09→06:09)
[2016-08-27] MEDS: 0.9 % Sodium Chloride 1,000 ML IVC SCH (00:12)
[2016-08-27] MEDS: Ipratropium/Albuterol Neb 3 ML IH SCH ×2 (05:03→11:30)
[2016-08-27] MEDS: *HR* Enoxaparin 40 MG/0.4 ML SYRINGE SQ SCH (06:02)
[2016-08-27 06:17] LABS: Basophils # 0.1 K/mcL (0.0-0.2); Basophils % 0.3 %; Eosinophils % 0.3 %; Hemoglobin 12.8 g/dL (11.5-15.4); Immature Granulocytes % 2.1 % (0-4); Lymphocytes # 1.4 K/mcL (0.6-4.6); Lymphocytes % 8.8 %; Mean Corpuscular HGB Conc 34.6 g/dL (31.6-35.5); Mean Corpuscular Hemoglobin 30.2 pg (28.0-33.3); Mean Corpuscular Volume 87.3 fL (83.0-100.0); Mean Platelet Volume 10.2 fL (9.4-12.4); Monocytes % 6.2 %; Neutrophils # 12.9 K/mcL (1.6-8.9); Nucleated Red Blood Cells 0.3 /100 WBC (0); Platelet Count 287 K/mcL (140-400); Red Blood Count 4.24 M/mcL (3.82-4.97); Red Cell Distribution Width 13.3 % (11.5-14.5); Segmented Neutrophils % 82.3 %
[2016-08-27 06:18] LABS: BUN/Creatinine Ratio 20 (6-26); Blood Urea Nitrogen 14 mg/dL (7-20); Carbon Dioxide 18 mEq/L (19-29); Chloride 109 mEq/L (98-109); Glucose 91 mg/dL (70-99); Osmolality,Calculated 292 (280-300); Sodium 141 mEq/L (136-145); eGFR For African Americans > 60 (> 60); eGFR For Non-African Americans > 60 (> 60)
[2016-08-27 06:20] LABS: Potassium 3.5 mEq/L (3.5-4.5)
[2016-08-27] MEDS: predniSONE 20 MG TABLET PO SCH (09:48)
[2016-08-27] MEDS: Carbidopa/Levodopa 25/100 TABLET PO SCH (09:48)
[2016-08-27] MEDS: amLODIPine 5 MG TABLET PO SCH (09:48)
[2016-08-27] MEDS: Aspirin 325 MG TABLET PO SCH (09:48)
[2016-08-27] MEDS: risperiDONE 0.25 MG TABLET PO SCH (09:48)
[2016-08-27] MEDS: Nystatin POWDER 30 GM BOTTLE TP SCH (09:52)
[2016-08-27] MEDS: (Calcium Carbonate/Vitamin D3 [Calcium 600 + D Tablet PO SCH (09:52)
[2016-08-27 10:43] VITALS: BP 138/75
--- NOTE | 2016-08-27 12:31 | Discharge Summary ---
Date of Encounter: 08/27/16 Time of Encounter: 12:29 - Discharge Diagnosis (1) Frail elderly Priority: Secondary Status: Acute (2) Pneumonia Priority: Primary Status: Acute Qualifiers: Pneumonia type: due to unspecified organism Laterality: right Lung location: lower lobe of lung Qualified Code(s): J18.9 - Pneumonia, unspecified organism - Discharge Medications Prescriptions: Amlodipine [Norvasc] 5 mg PO DAILY #30 tablet Amoxicillin/Clavulanate [Augmentin] 875 mg PO BIDWM #10 tablet GuaiFENesin ER [Mucinex] 600 mg PO BID 10 Days Home Medications: Calcium Carbonate/Vitamin D3 [Calcium 600 + D Tablet] 1 each PO BID 07/24/15 [ History] Alendronate Sodium [Fosamax] 35 mg PO QWEEK 09/19/15 [History] Aspirin 325 mg PO DAILY 09/19/15 [History] Carbidopa/Levodopa 25/100 [Sinemet 25/100] 1 each PO TID 09/19/15 [History] Albuterol Neb [Proventil Neb] 2.5 mg IH TID 08/23/16 [History] Baclofen [Lioresal] 10 mg PO BID 08/23/16 [History] Hydrochlorothiazide 25 mg PO DAILY 08/23/16 [History] Omeprazole [PriLOSEC] 20 mg PO DAILY 08/23/16 [History] RisperiDONE [Risperidone] 0.5 mg PO DAILY 08/23/16 [History] Vicks Vaporub Oint [Vicks Vaporub Ointment] 1 appl TP HS MDD Wash off every morning 08/23/16 [History] Amlodipine [Norvasc] 5 mg PO DAILY #30 tablet 08/27/16 [Rx] Amoxicillin/Clavulanate [Augmentin] 875 mg PO BIDWM #10 tablet 08/27/16 [Rx] GuaiFENesin ER [Mucinex] 600 mg PO BID 10 Days 08/27/16 [Rx] Allergies/Adverse Reactions: Allergies No Known Allergies Allergy (Verified 08/23/16 12:38) Procedures/tests Complete & Pending: Procedures Performed prior 72 hours Category Date Time Status CT abd pelvis w iv no oral [CT] Stat Cat Scan 08/25/16 09:[address] chest wo con [CT] Stat Cat Scan 08/25/16 08:51 Completed Date of admission: 08/23/16 20:37 Primary care physician: Radha Bird CNP Consults: 08/23/16 22:42 Consult to Occupational Therapy [CONS] Routine Comment: Evaluate, develop and implement POC Consult to Physical Therapy [CONS] Routine Comment: Evaluate, develop and implement POC Discharging clinician: Jenn Freire Anticipated date of discharge: 08/27/16 - Patient Status Disposition: Home Health Service Condition: Fair Functional capacity at discharge: independent ambulation Overall status at discharge: patient is back to baseline - Discharge Instructions Instructions: Pneumonia (DC) Follow Up With: Radha Bird CNP [Primary Care Provider] - 09/03/16 10:00 am - Diet and Activity Activity: as per physical therapy Interval History: Ms. Meng is a 61 year old female with developmental delay, history of asthma, and HTN, presented to the ED today with complaints of cough and shortness of breath. This is the third time she has been to the ED in the last week for similar complaints. She reports she has had the cough for about a week, and endorses sinus pressure, body aches, and poor appetite, with some nausea. The cough is not productive, but she reports she feels like she has phlegm she can not "get up". She denies fever, abdominal pain, diarrhea, chest pain, palpitations. Evaluation in the ED was significant for CXR that showed mild, patchy RLL disease and right middle lobe collapse. She was negative for influenza. Labs revealed hypokalemia with potassium of 2.7, and her WBC was slightly elevated to 12.9. She was started on Levaquin for pneumonia. On exam , she is alert and oriented, in no distress. Her lungs sound course, heart has regular rate and rhythm. Hospital course: Patient with cough, anorexia, WBC 12.6. CXR showed mild patchy RLL disease and Right middle lobe collapse Repeat CXR reveals improving but consistent right middle lobe volume loss switched to Unasyn -- 1.5g q6h d/t possible aspiration pneumonia. duoneb treatments was given. pulmonary was consulted fpr possible bronchoscopy for the mucus plug in the CT chest however, they recommended conservative tx for now with chest physiotherpay. she improved clinically on IV antibiotics and chest supportive therapy. she remained afebrile and is hemodynamically stable. she is being dc in stable condition. Time spent discussing smoking cessation with patient: more than 10 minutes - Time Spent with Patient Total time spent providing and/or coordinating discharge services: Greater than 30 minutes - Constitutional Vitals: Temp Pulse Resp BP Pulse Ox 99.3 F 93 18 138/75 95 08/27/16 10:00 08/27/16 10:00 08/27/16 10:00 08/27/16 10:00 08/27/16 10:00 General appearance: Present: A&O X 3, no acute distress Exam: General appearance: Present: A&O X 3, no acute distress - Head Head exam: Present: atraumatic, normocephalic - Eye Eye exam: Present: PERRL, conjuntiva pink, sclera anicteric Pupils: Present: PERRL - Neck Neck exam general surgery: Present: supple, trachea midline. Absent: lymphadenopathy - Respiratory Respiratory exam: no wheezing or creptns, mild decreased breath sounds in the rt. side, better air entry compared to before, - Cardiovascular Cardiovascular exam: Present: RRR, +S1, +S2. Absent: diastolic murmur, gallop, rubs, systolic murmur - GI/Abdominal GI/Abdominal exam: Present: normal bowel sounds, soft, tenderness (diffuse), no peritoneal signs. Absent: distended - Extremities Exam Extremities exam: Present: warm, radial pulses palpable and symetrical. Absent : calf tenderness, cyanotic, pedal edema - Neurological Exam Neurological exam: Present: CN II-XII intact, oriented X3, no focal deficits. Absent: facial droop, speech deficit - Skin Skin exam: Present: dry, intact - VTE Documentation of Mechanical Device: Graduated compression elastic hosiery
--- NOTE | 2016-08-27 15:57 | Physician Discharge Referral ---
Home Health/Hosp Referral Info Transfer to: Home Health Attending Provider: finn gunter - Diagnosis (1) Frail elderly Status: Acute (2) Pneumonia Status: Acute - Respiratory Orders Smoking Cessation: Smoking cessation has been advised. For more information, call the [place] Tobacco Quit Line at 6-135-XXPX-NOW. - Diet/Nutrition Diet/Nutrition Orders: Regular - Activity Activity Orders: Up [place], Ambulate - Services Needed Following services are medically necessary services: Nursing, Home Health Aide, Physical Therapy, Occupational Therapy - Transfer Medications Prescriptions: Amlodipine [Norvasc] 5 mg PO DAILY #30 tablet Amoxicillin/Clavulanate [Augmentin] 875 mg PO BIDWM #10 tablet GuaiFENesin ER [Mucinex] 600 mg PO BID 10 Days Home Medications: Calcium Carbonate/Vitamin D3 [Calcium 600 + D Tablet] 1 each PO BID 07/24/15 [ History] Alendronate Sodium [Fosamax] 35 mg PO QWEEK 09/19/15 [History] Aspirin 325 mg PO DAILY 09/19/15 [History] Carbidopa/Levodopa 25/100 [Sinemet 25/100] 1 each PO TID 09/19/15 [History] Albuterol Neb [Proventil Neb] 2.5 mg IH TID 08/23/16 [History] Baclofen [Lioresal] 10 mg PO BID 08/23/16 [History] Hydrochlorothiazide 25 mg PO DAILY 08/23/16 [History] Omeprazole [PriLOSEC] 20 mg PO DAILY 08/23/16 [History] RisperiDONE [Risperidone] 0.5 mg PO DAILY 08/23/16 [History] Vicks Vaporub Oint [Vicks Vaporub Ointment] 1 appl TP HS MDD Wash off every morning 08/23/16 [History] Amlodipine [Norvasc] 5 mg PO DAILY #30 tablet 08/27/16 [Rx] Amoxicillin/Clavulanate [Augmentin] 875 mg PO BIDWM #10 tablet 08/27/16 [Rx] GuaiFENesin ER [Mucinex] 600 mg PO BID 10 Days 08/27/16 [Rx] Allergies/Adverse Reactions: Allergies No Known Allergies Allergy (Verified 08/23/16 12:38) Certification: Further, I certify that my clinical findings support that this patient is homebound (i.e. absences from home require considerable and taxing effort and are for medical reasons or alevism services or infrequently or short duration when for other reasons) because: Homebound Reason: Patient requires assistance of a person or device to safely leave home Attestation: My signature below is to certify that this patient is under my care and that I, or nurse practitioner, or a physician's digital marketing assistant working with me, has a face-to -face encounter with this patient.
== END 2016-08-27 14:22 | disposition home health service (06) | DRG 190 ==
LOC: EMEROO 12:30 → 3ANU 12:30 → SUATTDRO 20:37
PROVIDERS: ADMIT Internal Medicine; ATTEND Internal Medicine

== ENCOUNTER 2016-09-10 14:03 | Inpatient (IN) ==
[2016-09-10] MEDS ORDERED: 0.9 % Sodium Chloride 1,000 ML IVC ONE (14:37)
--- NOTE | 2016-09-10 14:42 | Emergency Department Note ---
Disposition Clinical Impression: Weakness generalized, Hypokalemia Disposition: Admitted As Inpatient Condition: Good Time of Disposition: 16:29 Weakness HPI - General Chief complaint: ED General Medical Stated complaint: GENERALIZED WEAKNESS, NOT ABLE TO EAT, NAUSEA Time Seen by Provider: 09/10/16 14:07 Source: patient, EMS Mode of arrival: ambulatory Limitations: no limitations Nursing Notes Reviewed: Yes Vital Signs Reviewed: Yes - History of Present Illness HPI Narrative: 61-year-old female presents with 3-4 days of generalized weakness increase of her baseline. She and her caregiver at the bedside state that normally she is able to ambulate around with her walker with very minimal assistance. For the last 3-4 days the patient has had difficulty with walking even with alcohol of the walker. She has had a poor appetite with nausea over the last 3-4 days. She has 1 episode of nonbloody nonbilious emesis. She has cough productive of white sputum as well without shortness of breath or chest pain. She states that she is urinating normally, has been constipated over the last 3-4 days. She denies any melena or diarrhea. She denies any rashes or edema. She denies any abdominal pain. Pain Scale: 8 - Related Data Home Medications Medication Instructions Recorded Confirmed Calcium Carbonate/Vitamin D3 1 tab PO BID 07/24/15 09/10/16 [Calcium 600 + D Tablet] Alendronate Sodium [Fosamax] 35 mg PO QWEEK 09/19/15 09/10/16 Aspirin 325 mg PO DAILY 09/19/15 09/10/16 Carbidopa/Levodopa 25/100 [Sinemet 1 tab PO TID 09/19/15 09/10/16 25/100] Albuterol Neb [Proventil Neb] 2.5 mg IH TID 08/23/16 09/10/16 Baclofen [Lioresal] 10 mg PO BID 08/23/16 09/10/16 Hydrochlorothiazide 25 mg PO DAILY 08/23/16 09/10/16 Omeprazole [PriLOSEC] 20 mg PO DAILY 08/23/16 09/10/16 RisperiDONE [Risperidone] 0.5 mg PO DAILY 08/23/16 09/10/16 Vicks Vaporub Oint [Vicks Vaporub 1 appl TP HS MDD Wash off every 08/23/1609/10 Ointment] morning Previous Rx's Medication Instructions Recorded Amlodipine [Norvasc] 5 mg PO DAILY #30 tablet 08/27/16 GuaiFENesin ER [Mucinex] 600 mg PO BID 10 Days 08/27/16 Allergies Allergy/AdvReac Type Severity Reaction Status Date / Time No Known Allergies Allergy Verified 08/23/16 12:38 All systems ED: reviewed and negative except as stated. Past Medical History - Past Medical History Attestation: Yes The following information was validated with the patient. 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: Reports: no HEAD STOCK OPERATOR history - Social History Smoking Status: Never smoker Smokeless Tobacco Status: No Alcohol use: Reports: none Drug use: Reports: none Physical Exam - Head Head exam: atraumatic, normocephalic, normal inspection - Eye Eye exam: Present: normal appearance, PERRL, EOMI - ENT ENT exam: normal exam, normal oropharynx, mucous membranes moist - Neck Neck exam: Present: normal inspection, full ROM, trachea midline - Chest Chest inspection: Present: normal inspection, symmetric chest wall rise - Respiratory Respiratory exam: Clear to auscultation bilaterally without wheezes rales or rhonchi Cardiovascular Cardiovascular exam: Present: regular rate, normal rhythm, normal heart sounds - Abdominal Exam Abdominal exam: Present: soft, Non-Tender. Absent: tenderness, distention, guarding, rebound, rigidity - Extremities Exam Extremities exam: Present: normal inspection, full ROM - Expanded Lower Extremity Exam Hip/Pelvis exam: Present: normal inspection, full ROM - Back Exam Back exam: Present: normal inspection, full ROM. Absent: tenderness, CVA tenderness (R), CVA tenderness (L) - Neurological Exam Neurological exam: Present: alert, oriented X3, CN II-XII intact - Psychiatric Psychiatric exam: Present: normal affect, normal mood - Skin Skin exam: Present: warm, dry, intact, normal color - General General appearance: alert Course Course Narrative: Laboratory evaluation significant for hypokalemia with a potassium of 2.6. EKG does not show any significant findings other than mild flattened T waves. Patient is stable for admission to the hospitalist at this time. Hospitalist was paged. - Reevaluation(s) Reevaluation #1: Accepted by Dr. Grant for hypokalemia and weakness. Time: 16:32 Vital Signs Temperature 98.3 F 09/10/16 14:07 Pulse Rate 105 09/10/16 14:07 Respiratory Rate 16 09/10/16 14:07 Blood Pressure 143/85 09/10/16 14:07 O2 Sat by Pulse Oximetry 97 09/10/16 14:07 Temperature 99.2 F 09/10/16 17:48 Pulse Rate 94 09/10/16 17:48 Respiratory Rate 15 09/10/16 17:48 Blood Pressure 113/74 09/10/16 17:48 O2 Sat by Pulse Oximetry 94 L 09/10/16 17:48 Oxygen Delivery Oxygen Delivery Room Air Weakness - Medical Records Medical records reviewed: Yes I reviewed the patient's medical records. - Lab Data Lab results reviewed: Yes I reviewed the patient's lab results. Result diagrams: 09/10/16 15:34 09/10/16 15:34 Lab Results 09/10/16 09/10/16 09/10/16 Range/Units 14:45 15:34 15:34 WBC 11.4 H (4.3-11.1) K/mcL RBC 4.61 (3.82-4.97) M/mcL Hgb 13.5 (11.5-15.4) g/dL Hct 38.8 (35.3-44.9) % MCV 84.2 (83.0-100.0) fL MCH 29.3 (28.0-33.3) pg MCHC 34.8 (31.6-35.5) g/dL RDW 12.9 (11.5-14.5) % Plt Count 331 (140-400) K/mcL MPV 10.4 (9.4-12.4) fL Immature Gran % 0.6 (0-4) % Seg Neutrophils % 82.6 % Lymphocytes % 10.4 % Monocytes % 5.7 % Eosinophils % 0.4 % Basophils % 0.3 % Neutrophils # 9.4 H (1.6-8.9) K/mcL Lymphocytes # 1.2 (0.6-4.6) K/mcL Monocytes # 0.7 (0.0-1.3) K/mcL Eosinophils # 0.1 (0.0-0.6) K/mcL Basophils # 0.0 (0.0-0.2) K/mcL Platelet Estimate Normal (Normal) Sodium 136 (136-145) mEq/L Potassium 2.6 L (3.5-4.5) mEq/L Chloride 91 L (98-109) mEq/L Carbon Dioxide 28 (19-29) mEq/L BUN 37 H (7-20) mg/dL Creatinine 0.78 (0.57-1.11) mg/dL Est GFR ( Amer) > 60 (> 60) Est GFR (Non-Af Amer) > 60 (> 60) BUN/Creatinine Ratio 47 H (6-26) Glucose 118 H (70-99) mg/dL Calculated Osmolality 292 (280-300) Calcium 9.9 (8.6-10.8) mg/dL Total Bilirubin 0.6 (0.2-1.2) mg/dL AST 18 (5-34) Units/L ALT 16 (0-55) Units/L Alkaline Phosphatase 132 H (38-126) Units/L Troponin I (0-0.03) ng/mL Serum Total Protein 7.9 (6.0-8.3) g/dL Albumin 2.9 L (3.5-5.0) g/dL Globulin 5.0 H (2.4-3.5) g/dL Albumin/Globulin Ratio 0.6 L (1.1-2.2) TSH 2.720 (0.350-4.840) mcIU/mL Urine Color Dark Yellow (Yellow) Urine Clarity Clear (Clear) Urine pH 6.0 (5.0-8.0) pH Units Ur Specific [place] 1.019 (1.010-1.025) Urine Protein Negative (Neg-Trace) mg/dL Urine Glucose (UA) Normal (Normal) mg/dL Urine Ketones Trace H (Negative) mg/dL Urine Blood Negative (Negative) Urine Nitrite Negative (Negative) Urine Bilirubin Small H (Negative) Urine Urobilinogen Normal (Normal) mg/dL Ur Leukocyte Esterase Negative (Negative) Ur Culture Indicated? NO (NO) 09/10/16 Range/Units 15:34 WBC (4.3-11.1) K/mcL RBC (3.82-4.97) M/mcL Hgb (11.5-15.4) g/dL Hct (35.3-44.9) % MCV (83.0-100.0) fL MCH (28.0-33.3) pg MCHC (31.6-35.5) g/dL RDW (11.5-14.5) % Plt Count (140-400) K/mcL MPV (9.4-12.4) fL Immature Gran % (0-4) % Seg Neutrophils % % Lymphocytes % % Monocytes % % Eosinophils % % Basophils % % Neutrophils # (1.6-8.9) K/mcL Lymphocytes # (0.6-4.6) K/mcL Monocytes # (0.0-1.3) K/mcL Eosinophils # (0.0-0.6) K/mcL Basophils # (0.0-0.2) K/mcL Platelet Estimate (Normal) Sodium (136-145) mEq/L Potassium (3.5-4.5) mEq/L Chloride (98-109) mEq/L Carbon Dioxide (19-29) mEq/L BUN (7-20) mg/dL Creatinine (0.57-1.11) mg/dL Est GFR ( Amer) (> 60) Est GFR (Non-Af Amer) (> 60) BUN/Creatinine Ratio (6-26) Glucose (70-99) mg/dL Calculated Osmolality (280-300) Calcium (8.6-10.8) mg/dL Total Bilirubin (0.2-1.2) mg/dL AST (5-34) Units/L ALT (0-55) Units/L Alkaline Phosphatase (38-126) Units/L Troponin I 0.02 (0-0.03) ng/mL Serum Total Protein (6.0-8.3) g/dL Albumin (3.5-5.0) g/dL Globulin (2.4-3.5) g/dL Albumin/Globulin Ratio (1.1-2.2) TSH (0.350-4.840) mcIU/mL Urine Color (Yellow) Urine Clarity (Clear) Urine pH (5.0-8.0) pH Units Ur Specific [place] (1.010-1.025) Urine Protein (Neg-Trace) mg/dL Urine Glucose (UA) (Normal) mg/dL Urine Ketones (Negative) mg/dL Urine Blood (Negative) Urine Nitrite (Negative) Urine Bilirubin (Negative) Urine Urobilinogen (Normal) mg/dL Ur Leukocyte Esterase (Negative) Ur Culture Indicated? (NO) - Radiology Data Radiology results reviewed: Yes I reviewed the patient's radiology results. - EKG Data EKG attestation: Yes I reviewed and interpreted this EKG. EKG results narrative: EKG shows normal sinus rhythm at 97 with normal axis and intervals. No ST elevation or depression. Nonspecific T-wave flattening in lead 3. This is the only change when compared with 08/23/2016. Attestation Statement - Attestation Attestation: For this encounter, I have reviewed the resident, AIR POLLUTION ANALYST, or PA documentation, treatment plan, and medical decision making; and I have had face to face time with this patient. 61-year-old female brought in by family for concerns of generalized weakness and difficulty with ambulation. Patient has not been able to eat or drink very well over the past 3-4 days although she is able to keep food down. Patient reports one episode of nonbilious nonbloody emesis. Patient states that she has felt weak and lightheaded when trying to ambulate. Patient denies fever, chills, chest pain, shortness of breath, abdominal pain. Physical examination reveals lungs clear to auscultation bilaterally. Abdomen is nontender to palpation and is without rigidity or guarding. Laboratory evaluation reveals hypokalemia of 2.6. Patient will be admitted to the hospital for further care and evaluation of her generalized weakness and for replacement of her potassium. Patient is comfortable with plan for admission to the hospital.
[2016-09-10 14:54] LABS: Bilirubin,Urine Small (Negative); Blood,Urine Negative (Negative); Clarity,Urine Clear (Clear); Color,Urine Dark Yellow (Yellow); Glucose,Urine (UA) Normal (Normal); Ketones,Urine Trace mg/dL (Negative); Leukocyte Esterase,Urine Negative (Negative); Nitrite,Urine Negative (Negative); Protein,Urine Negative (Neg-Trace); Specific Gravity,Urine 1.019 (1.010-1.025); Urobilinogen,Urine Normal (Normal)
[2016-09-10 15:42] LABS: Basophils % 0.3 %; Eosinophils % 0.4 %; Hematocrit 38.8 % (35.3-44.9); Hemoglobin 13.5 g/dL (11.5-15.4); Immature Granulocytes % 0.6 % (0-4); Lymphocytes # 1.2 K/mcL (0.6-4.6); Lymphocytes % 10.4 %; Mean Corpuscular HGB Conc 34.8 g/dL (31.6-35.5); Mean Corpuscular Hemoglobin 29.3 pg (28.0-33.3); Mean Corpuscular Volume 84.2 fL (83.0-100.0); Mean Platelet Volume 10.4 fL (9.4-12.4); Monocytes # 0.7 K/mcL (0.0-1.3); Monocytes % 5.7 %; Neutrophils # 9.4 K/mcL (1.6-8.9); Platelet Count 331 K/mcL (140-400); Red Blood Count 4.61 M/mcL (3.82-4.97); Red Cell Distribution Width 12.9 % (11.5-14.5); Segmented Neutrophils % 82.6 %
[2016-09-10 15:55] LABS: Alanine Aminotransferase 16 Units/L (0-55); Albumin 2.9 g/dL (3.5-5.0); Albumin/Globulin Ratio 0.6 (1.1-2.2); Aspartate Amino Transferase 18 Units/L (5-34); BUN/Creatinine Ratio 47 (6-26); Bilirubin,Total 0.6 mg/dL (0.2-1.2); Blood Urea Nitrogen 37 mg/dL (7-20); Calcium 9.9 mg/dL (8.6-10.8); Carbon Dioxide 28 mEq/L (19-29); Chloride 91 mEq/L (98-109); Glucose 118 mg/dL (70-99); Osmolality,Calculated 292 (280-300); Potassium 2.6 mEq/L (3.5-4.5); Sodium 136 mEq/L (136-145); Total Protein 7.9 g/dL (6.0-8.3); eGFR For African Americans > 60 (> 60); eGFR For Non-African Americans > 60 (> 60)
[2016-09-10] MEDS ORDERED: Potassium Effervescent 25 MEQ TABLET.EFF PO ONE (15:59)
[2016-09-10 16:04] LABS: Alkaline Phosphatase 132 Units/L (38-126)
[2016-09-10 16:13] LABS: Eosinophils # 0.1 K/mcL (0.0-0.6); Platelet Estimate Normal (Normal)
[2016-09-10] MEDS ORDERED: Ondansetron 4 MG/2 ML VIAL IVP ONE (16:23)
[2016-09-10] MEDS ORDERED: Acetaminophen 325 MG TABLET PO PRN (16:50)
[2016-09-10] MEDS ORDERED: Naloxone 0.4 MG/ML INJ IVP PRN (16:50)
[2016-09-10] MEDS ORDERED: *HR* Morphine 2 MG/ML SYRINGE IVP PRN (16:50)
[2016-09-10] MEDS ORDERED: Ondansetron 4 MG/2 ML VIAL IVP PRN (16:50)
[2016-09-10] MEDS ORDERED: Lactulose Oral Soln 20 GM/30 ML UDC PO ONE (16:52)
--- NOTE | 2016-09-10 16:55 | Internal Med History&Physical ---
Date of Encounter: 09/10/16 Time of Encounter: 16:53 Assessment and Plan (1) Dehydration Current visit: Yes Status: Acute Severe dehydration secondary to constant nausea and constipation Hypotension and tachycardia have improved with fluids Patient will be given IV fluids, potassium will be repleted U the pain and nausea persist, imaging will be performed Encourage oral intake, Zofran needed (2) Hypokalemia Current visit: Yes Status: Acute Replete needed, hold hydrochlorothiazide (3) Weakness generalized Current visit: Yes Status: Acute secondary to dehydration (4) Parkinsons Current visit: Yes Status: Acute Continue Sinemet (5) Constipation Current visit: Yes Status: Acute Give 1 dose of lactulose May continue bowel regimen Qualifiers: Constipation type: unspecified constipation type Qualified Code(s): K59.00 - Constipation, unspecified (6) Schizophrenia Current visit: Yes Status: Acute Protonix IV for GI prophylaxis and subcutaneous heparin for DVT prophylaxis. The patient will be admitted for observation. She is a full code. Time spent on these admission 40 minutes. She is high risk due to severe dehydration and hypotension Qualifiers: Schizophrenia type: unspecified Qualified Code(s): F20.9 - Schizophrenia, unspecified Internal Medicine - H&P: HPI Chief complaint: Weakness Admitted From: Emergency Dept History of present illness: Ms. Meng is a 61 year old female with a past medical history of MRDD, Parkinson' s, hypertension, GERD, who was discharged recently from the hospital where she was treated for pneumonia on August 27. Was brought to the emergency room she has not been able to walk or eat for the past 3 days. Her caregiver mentions that she has been getting weaker and vomited once today. She has been very constipated. Her potassium was 2.6 and she had a heart rate of 105 and blood pressure dropped to 89/73 which improved with IV fluids. Patient was dehydrated what blood cell count is 11.4. Not able to provide much history she is a very poor historian and has MRDD. Patient denies any other complaint other than severe weakness and some nausea at the moment. Past Med Surg Social Fam HX - Past Medical History Medical history: asthma, CHF (Systolic versus diastolic), other (Parkinson's, osteoporosis, hypertension, GERD, asthma, borderline MRDD, umbilical hernia, ARTHRITIS, rheumatic fever, schizophrenia, spondylosis) Psychiatric history: schizophrenia, other - Past Surgical History Surgical History: herniorrhaphy - Social History Smoking Status: Never smoker Smokeless Tobacco Status: No Alcohol use: none Drug use: none - Additional Family History Additional family history: Mother with diabetes and brother with unknown cancer Internal Medicine - H&P: Meds Calcium Carbonate/Vitamin D3 [Calcium 600 + D Tablet] 1 tab PO BID 07/24/15 [ History] Alendronate Sodium [Fosamax] 35 mg PO QWEEK 09/19/15 [History] Aspirin 325 mg PO DAILY 09/19/15 [History] Carbidopa/Levodopa 25/100 [Sinemet 25/100] 1 tab PO TID 09/19/15 [History] Albuterol Neb [Proventil Neb] 2.5 mg IH TID 08/23/16 [History] Baclofen [Lioresal] 10 mg PO BID 08/23/16 [History] Hydrochlorothiazide 25 mg PO DAILY 08/23/16 [History] Omeprazole [PriLOSEC] 20 mg PO DAILY 08/23/16 [History] RisperiDONE [Risperidone] 0.5 mg PO DAILY 08/23/16 [History] Vicks Vaporub Oint [Vicks Vaporub Ointment] 1 appl TP HS MDD Wash off every morning 08/23/16 [History] Amlodipine [Norvasc] 5 mg PO DAILY #30 tablet 08/27/16 [Rx] GuaiFENesin ER [Mucinex] 600 mg PO BID 10 Days 08/27/16 [Rx] Allergies No Known Allergies Allergy (Verified 08/23/16 12:38) All Systems PM: A 10-system review of systems was performed and is negative for pertinent findings except as documented above in the HPI. Review of systems: Able to complete review of systems due to patient's MRDD. Appears to be in no distress - Constitutional Vitals: Temp Pulse Resp BP Pulse Ox 98.3 F 98 19 127/68 96 09/10/16 14:07 09/10/16 16:34 09/10/16 16:50 09/10/16 16:50 09/10/16 16:34 General appearance: Present: A&O X 3 Exam: Dehydrated, dry mucosa - Head Head exam: Present: atraumatic, normocephalic - Eye Eye exam: Present: PERRL, conjuntiva pink, sclera anicteric Pupils: Present: PERRL - Neck Neck exam general surgery: Present: supple, trachea midline. Absent: lymphadenopathy - Respiratory Respiratory exam: Present: decreased breath sounds, CTAB. Absent: accessory muscle use, rales, rhonchi, wheezes - Cardiovascular Cardiovascular exam: Present: RRR, +S1, +S2. Absent: diastolic murmur, gallop, rubs, systolic murmur - GI/Abdominal GI/Abdominal exam: Present: normal bowel sounds, soft, no peritoneal signs. Absent: distended, tenderness - Extremities Exam Extremities exam: Present: warm, radial pulses palpable and symetrical. Absent : calf tenderness, cyanotic, pedal edema - Neurological Exam Neurological exam: Present: CN II-XII intact, oriented X3, no focal deficits. Absent: pronater drift, facial droop, speech deficit - Skin Skin exam: Present: dry, intact Additional comments: Generalized weakness Internal Med - H&P Results - Labs CBC & Chem 7: 09/10/16 15:34 09/10/16 15:34 Labs: EKG is not available in the chart at the moment but according to the ER physician and showed some nonspecific T-wave flattening, we may order another one
[2016-09-10] MEDS: Pantoprazole 40 MG VIAL IVP SCH (17:56)
[2016-09-10] MEDS: Ringers Solution, Lactated 1,000 ML IVC SCH (17:56)
[2016-09-10] MEDS: Baclofen 10 MG TABLET PO SCH (21:28)
[2016-09-10] MEDS: Carbidopa/Levodopa 25/100 TABLET PO SCH (21:28)
[2016-09-11 05:00] LABS: Hematocrit 32.9 % (35.3-44.9); Mean Corpuscular HGB Conc 33.4 g/dL (31.6-35.5); Mean Corpuscular Volume 86.8 fL (83.0-100.0); Mean Platelet Volume 10.3 fL (9.4-12.4); Platelet Count 312 K/mcL (140-400); Red Blood Count 3.79 M/mcL (3.82-4.97); Red Cell Distribution Width 13.2 % (11.5-14.5)
[2016-09-11 05:16] LABS: BUN/Creatinine Ratio 36 (6-26); Carbon Dioxide 31 mEq/L (19-29); Chloride 98 mEq/L (98-109); Glucose 120 mg/dL (70-99); Magnesium 1.6 mg/dL (1.6-2.6); Osmolality,Calculated 292 (280-300); Potassium 2.9 mEq/L (3.5-4.5); Sodium 138 mEq/L (136-145); eGFR For African Americans > 60 (> 60); eGFR For Non-African Americans > 60 (> 60)
[2016-09-11 05:17] LABS: Blood Urea Nitrogen 25 mg/dL (7-20)
[2016-09-11] MEDS: Ringers Solution, Lactated 1,000 ML IVC SCH ×2 (06:14→20:20)
[2016-09-11] MEDS ORDERED: Milk and Molasses Enema 200 ML RC ONE (09:24)
--- NOTE | 2016-09-11 09:38 | Electrocardiograph Report ---
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
[2016-09-11] MEDS: Baclofen 10 MG TABLET PO SCH ×2 (09:57→20:20)
[2016-09-11] MEDS: Pantoprazole 40 MG VIAL IVP SCH (09:57)
[2016-09-11] MEDS: Carbidopa/Levodopa 25/100 TABLET PO SCH ×3 (09:57→20:20)
[2016-09-11] MEDS: amLODIPine 5 MG TABLET PO SCH (09:57)
[2016-09-11] MEDS: risperiDONE 0.25 MG TABLET PO SCH (09:57)
[2016-09-11] MEDS: Aspirin 325 MG TABLET PO SCH (09:58)
[2016-09-11] MEDS: Potassium Chloride 40 MEQ, Lidocaine 1% 2 ML in D5% in Water 500 ML IVPB SCH ×2 (09:59→15:44)
--- NOTE | 2016-09-11 14:35 | Internal Med Progress Note ---
Date of Encounter: 09/11/16 Time of Encounter: 14:32 - Assessment and plan (1) Constipation Current Visit: Yes Status: Acute Assessment and plan: started on laxatives. will give one dose of enema today. x ray abd do not show evidence of ileus or obstruction. Qualifiers: Constipation type: unspecified constipation type Qualified Code(s): K59.00 - Constipation, unspecified (2) Dehydration Current Visit: Yes Status: Acute Assessment and plan: 2/2 poor oral intake, will continue the IVF for now, did not eat well her BF andlunch. will continue to monitor (3) Hypokalemia Current Visit: Yes Status: Acute Assessment and plan: will give IV supplements, recheck in am./ possible 2/2 poor oral intake. (4) Parkinsons Current Visit: Yes Status: Acute (5) Schizophrenia Current Visit: Yes Status: Acute Qualifiers: Schizophrenia type: unspecified Qualified Code(s): F20.9 - Schizophrenia, unspecified - Time Spent With Patient 25 - 35 minutes - Subjective Interval history: patient seen at the bedside, reports that she has not moved her bowels for a long time and complaining of abdominal pain . No nausea or vomiting. poor appetite, asking to be discharged. - Constitutional Vitals: Temp Pulse Resp BP Pulse Ox 99.0 F 83 15 115/75 92 L 09/11/16 10:50 09/11/16 10:50 09/11/16 10:50 09/11/16 10:50 09/11/16 10:50 General appearance: Present: A&O X 3 Exam: neck- supple chest- b/l clear, no added sounds CVs-s1 and s2, no m/r/g abd-soft, mild lower abdominal tenderness, bs are present, no rebound. ext- no edema neuro- alert and awake, no focal neuro defecits. Internal Medicine: Result - Labs CBC & Chem 7: 09/11/16 04:36 09/11/16 04:36 Labs: Short CBC 09/11/16 Range/Units 04:36 WBC 9.1 (4.3-11.1) K/mcL Hgb 11.0 L D (11.5-15.4) g/dL Hct 32.9 L (35.3-44.9) % Plt Count 312 (140-400) K/mcL BMP 09/11/16 04:36 Sodium 138 Potassium 2.9 L Chloride 98 Carbon Dioxide 31 H BUN 25 H D Creatinine 0.70 Glucose 120 H Calcium 9.0 - Impressions Impressions Abdomen X-Ray 09/11/16 09:23 IMPRESSION: No acute process demonstrated. No evidence of bowel obstruction or generalized ileus D/ / Vadim Lopez MD / Vadim Lopez MD Interpreting Provider: Vadim Lopez MD Consult Discharge Plan - Plan Referrals: Radha Bird, GLASS LINED TANK REPAIRER [Primary Care Provider] -
[2016-09-12] MEDS: Aspirin 325 MG TABLET PO SCH (09:19)
[2016-09-12] MEDS: amLODIPine 5 MG TABLET PO SCH (09:20)
[2016-09-12] MEDS: Carbidopa/Levodopa 25/100 TABLET PO SCH ×3 (09:20→21:02)
[2016-09-12] MEDS: Pantoprazole 40 MG VIAL IVP SCH (09:20)
[2016-09-12] MEDS: Baclofen 10 MG TABLET PO SCH ×2 (09:20→21:02)
[2016-09-12] MEDS: risperiDONE 0.25 MG TABLET PO SCH (09:20)
[2016-09-12 09:35] LABS: Basophils % 0.3 %; Eosinophils # 0.2 K/mcL (0.0-0.6); Eosinophils % 3.5 %; Hematocrit 33.1 % (35.3-44.9); Hemoglobin 11.1 g/dL (11.5-15.4); Immature Granulocytes % 0.9 % (0-4); Immature Platelets 3.4 % (1.1-6.1); Lymphocytes # 1.2 K/mcL (0.6-4.6); Lymphocytes % 18.9 %; Mean Corpuscular HGB Conc 33.5 g/dL (31.6-35.5); Mean Corpuscular Hemoglobin 29.4 pg (28.0-33.3); Mean Corpuscular Volume 87.8 fL (83.0-100.0); Mean Platelet Volume 10.1 fL (9.4-12.4); Monocytes # 0.3 K/mcL (0.0-1.3); Monocytes % 5.2 %; Neutrophils # 4.6 K/mcL (1.6-8.9); Platelet Count 329 K/mcL (140-400); Red Blood Count 3.77 M/mcL (3.82-4.97); Red Cell Distribution Width 13.2 % (11.5-14.5); Segmented Neutrophils % 71.2 %
[2016-09-12 10:39] LABS: BUN/Creatinine Ratio 18 (6-26); Blood Urea Nitrogen 11 mg/dL (7-20); Calcium 8.7 mg/dL (8.6-10.8); Carbon Dioxide 23 mEq/L (19-29); Chloride 102 mEq/L (98-109); Glucose 101 mg/dL (70-99); Osmolality,Calculated 282 (280-300); Sodium 136 mEq/L (136-145); eGFR For African Americans > 60 (> 60); eGFR For Non-African Americans > 60 (> 60)
[2016-09-12 10:40] LABS: Potassium 3.7 mEq/L (3.5-4.5)
--- NOTE | 2016-09-12 15:54 | Physician Discharge Referral ---
ExtendedCare Referral Info Transfer To: [facility] Provider in Charge: finn gunter Institutional Level of Care: Intermediate - MR - Diagnosis (1) Constipation Status: Acute (2) Dehydration Status: Acute (3) Hypokalemia Status: Acute (4) Parkinsons Status: Acute (5) Schizophrenia Status: Acute - Transfer Medications Home Medications: Calcium Carbonate/Vitamin D3 [Calcium 600 + D Tablet] 1 tab PO BID 07/24/15 [ History] Alendronate Sodium [Fosamax] 35 mg PO QWEEK 09/19/15 [History] Aspirin 325 mg PO DAILY 09/19/15 [History] Carbidopa/Levodopa 25/100 [Sinemet 25/100] 1 tab PO TID 09/19/15 [History] Albuterol Neb [Proventil Neb] 2.5 mg IH TID 08/23/16 [History] Baclofen [Lioresal] 10 mg PO BID 08/23/16 [History] Hydrochlorothiazide 25 mg PO DAILY 08/23/16 [History] Omeprazole [PriLOSEC] 20 mg PO DAILY 08/23/16 [History] RisperiDONE [Risperidone] 0.5 mg PO DAILY 08/23/16 [History] Vicks Vaporub Oint [Vicks Vaporub Ointment] 1 appl TP HS MDD Wash off every morning 08/23/16 [History] Amlodipine [Norvasc] 5 mg PO DAILY #30 tablet 08/27/16 [Rx] GuaiFENesin ER [Mucinex] 600 mg PO BID 10 Days 08/27/16 [Rx] Allergies/Adverse Reactions: Allergies No Known Allergies Allergy (Verified 08/23/16 12:38) - Respiratory Orders Smoking Cessation: Smoking cessation has been advised. For more information, call the [place] Tobacco Quit Line at 3-434-LWOO-NOW. - Advance Directives Code Status: Full Code - Mobility Orders Ambulate - Rehabiliation Orders Rehab Potential: Fair Rehab Orders: Evaluation for Physical Therapy, Evaluation for Occupational Therapy - Diet Orders Regular CERTIFICATION: I certify that the transfer of the above named patient to an Extended Care Facility is necessary for the continuing treatment of the diagnosis listed. The above information is true and accurate reflection of patient's current condition. Confidential - Redisclosure prohibited without a patient's written consent.
--- NOTE | 2016-09-12 16:40 | Discharge Summary ---
Date of Encounter: 09/12/16 Time of Encounter: 16:38 - Discharge Diagnosis (1) Constipation Priority: Primary Status: Acute Qualifiers: Constipation type: unspecified constipation type Qualified Code(s): K59.00 - Constipation, unspecified (2) Dehydration Priority: Primary Status: Acute (3) Hypokalemia Priority: Primary Status: Acute (4) Parkinsons Priority: Secondary Status: Acute (5) Schizophrenia Priority: Secondary Status: Acute Qualifiers: Schizophrenia type: unspecified Qualified Code(s): F20.9 - Schizophrenia, unspecified - Discharge Medications Prescriptions: Sennosides [Senna] 8.6 mg PO DAILY PRN #30 tablet PRN Reason: Constipation Home Medications: Calcium Carbonate/Vitamin D3 [Calcium 600 + D Tablet] 1 tab PO BID 07/24/15 [ History] Alendronate Sodium [Fosamax] 35 mg PO QWEEK 09/19/15 [History] Aspirin 325 mg PO DAILY 09/19/15 [History] Carbidopa/Levodopa 25/100 [Sinemet 25/100] 1 tab PO TID 09/19/15 [History] Albuterol Neb [Proventil Neb] 2.5 mg IH TID 08/23/16 [History] Baclofen [Lioresal] 10 mg PO BID 08/23/16 [History] Hydrochlorothiazide 25 mg PO DAILY 08/23/16 [History] Omeprazole [PriLOSEC] 20 mg PO DAILY 08/23/16 [History] RisperiDONE [Risperidone] 0.5 mg PO DAILY 08/23/16 [History] Vicks Vaporub Oint [Vicks Vaporub Ointment] 1 appl TP HS MDD Wash off every morning 08/23/16 [History] Amlodipine [Norvasc] 5 mg PO DAILY #30 tablet 08/27/16 [Rx] Sennosides [Senna] 8.6 mg PO DAILY PRN #30 tablet 09/12/16 [Rx] Allergies/Adverse Reactions: Allergies No Known Allergies Allergy (Verified 08/23/16 12:38) Date of admission: 09/11/16 14:55 Primary care physician: Radha Bird CNP Discharging clinician: Jenn Freire Anticipated date of discharge: 09/12/16 - Patient Status Disposition: Transfer Inpatient Rehab Fac Condition: Fair Functional capacity at discharge: independent ambulation Overall status at discharge: patient is back to baseline - Discharge Instructions Follow Up With: Radha Bird, WATER/WASTEWATER PROJECT ENGINEER [Primary Care Provider] - - Diet and Activity Activity: as per physical therapy Diet: advance to your usual diet Interval History: Ms. Meng is a 61 year old female with a past medical history of MRDD, Parkinson' s, hypertension, GERD, who was discharged recently from the hospital where she was treated for pneumonia on August 27. Was brought to the emergency room she has not been able to walk or eat for the past 3 days. Her caregiver mentions that she has been getting weaker and vomited once today. She has been very constipated. Her potassium was 2.6 and she had a heart rate of 105 and blood pressure dropped to 89/73 which improved with IV fluids. Patient was dehydrated what blood cell count is 11.4. Not able to provide much history she is a very poor historian and has MRDD. Patient denies any other complaint other than severe weakness and some nausea . Hospital course: jaz was admitted for Severe dehydration secondary to constant nausea and constipation Hypotension and tachycardia have improved with fluids. she was given supportive treatment, potassuim was replaced. abdominal Xray was done which did not show any obstruction or ileus. She was given enema and eventually she had a good bowel movement. She improved clinically, bedside PT OT was consulted and recommended discharge to rehabilitation. She is being discharged today to inpatient rehabilitation in stable condition. Time spent discussing smoking cessation with patient: more than 10 minutes - Time Spent with Patient Total time spent providing and/or coordinating discharge services: Greater than 30 minutes - Constitutional Vitals: Temp Pulse Resp BP Pulse Ox 97.8 F 75 14 97/64 95 09/12/16 15:05 09/12/16 15:05 09/12/16 15:05 09/12/16 15:05 09/12/16 15:05 General appearance: Present: A&O X 3 Exam: General appearance: Present: A&O X 3 - Head Head exam: Present: atraumatic, normocephalic - Eye Eye exam: Present: PERRL, conjuntiva pink, sclera anicteric Pupils: Present: PERRL - Neck Neck exam general surgery: Present: supple, trachea midline. Absent: lymphadenopathy - Respiratory Respiratory exam: Present: decreased breath sounds, CTAB. Absent: accessory muscle use, rales, rhonchi, wheezes - Cardiovascular Cardiovascular exam: Present: RRR, +S1, +S2. Absent: diastolic murmur, gallop, rubs, systolic murmur - GI/Abdominal GI/Abdominal exam: Present: normal bowel sounds, soft, no peritoneal signs. Absent: distended, tenderness - Extremities Exam Extremities exam: Present: warm, radial pulses palpable and symetrical. Absent : calf tenderness, cyanotic, pedal edema - Neurological Exam Neurological exam: Present: CN II-XII intact, oriented X3, no focal deficits. Absent: pronater drift, facial droop, speech deficit - Skin Skin exam: Present: dry, intact Additional comments:
[2016-09-13] MEDS: Ringers Solution, Lactated 1,000 ML IVC SCH ×2 (01:29→04:34)
[2016-09-13] MEDS: amLODIPine 5 MG TABLET PO SCH (09:34)
[2016-09-13] MEDS: Baclofen 10 MG TABLET PO SCH (09:34)
[2016-09-13] MEDS: Pantoprazole 40 MG VIAL IVP SCH (09:34)
[2016-09-13] MEDS: Aspirin 325 MG TABLET PO SCH (09:34)
[2016-09-13] MEDS: Carbidopa/Levodopa 25/100 TABLET PO SCH ×2 (09:34→15:07)
[2016-09-13] MEDS: risperiDONE 0.25 MG TABLET PO SCH (09:34)
[2016-09-13 15:03] VITALS: BP 116/71
--- NOTE | 2016-09-13 17:31 | Event Note ---
Date of Encounter: 09/13/16 Time of Encounter: 17:31 jaz was waiting for ECF for placement. she is being dc today in stable condition.
== END 2016-09-13 16:10 | DRG 641 ==
LOC: 3BNU 14:03 → EMEROO 14:03 → 3BNU 17:15 → SUATTDRO 09-11 14:55
PROVIDERS: ADMIT Nurse Practitioner Family; ATTEND Internal Medicine Endocrinology, Diabetes & Metabolism

== ENCOUNTER 2017-12-19 12:02 | Inpatient (IN) ==
--- NOTE | 2017-12-19 12:12 | Emergency Department Note ---
Disposition Clinical Impression: Seizure-like activity, Near syncope Disposition: Admitted As Inpatient Condition: Fair Time of Disposition: 14:30 Syncope HPI - General Chief Complaint: ED Syncope Stated Complaint: post syncope Time Seen by Provider: 12/19/17 12:04 Source: patient Mode of arrival: ambulatory Limitations: no limitations Nursing Notes Reviewed: Yes Vital Signs Reviewed: Yes - History of Present Illness HPI Narrative: The patient is a 62-year-old female with past medical history of Parkinson's, hypertension, diabetes. She presents today to come in by her caregivers due to concern for near syncope/possible seizure-like activity. Caregivers state that she lives all alone but receives care 14 hours a day. [facility]. On the way back, patient wanted to show that her main office her hair. When getting out of the car, patient was using her walker , she was walking, the patient suddenly stood still, had sudden stiffness of her right arm and some mild tonic-clonic activity of her right arm, patient stopped talking but did not completely lose consciousness. Orthotic Fitter said that she immediately grabbed her and lowered her to the ground. She denies that the patient had her head, suffered any known injuries. She said that the patient was confused for several minutes afterwards. She now knows her name but is unsure of where she is and the year which her caretakers state is new for the patient. They state that she is usually alert and oriented 3, very talkative, they state that this current status is drastically different from her usual. He denies any other previous complaints of symptoms such as chest pain, shortness of breath, nausea, vomiting, fevers, abdominal pain in the prior days leading up to this. They do state that the patient has not eaten breakfast this morning and usually does. - Related Data Home Medications Medication Instructions Recorded Confirmed Calcium Carbonate/Vitamin D3 1 tab PO BID 07/24/15 04/01/17 [Calcium 600 + D Tablet] Alendronate Sodium [Fosamax] 35 mg PO WE 09/19/15 04/01/17 Aspirin 325 mg PO DAILY 09/19/15 04/01/17 Carbidopa/Levodopa 25/100 [Sinemet 1 tab PO TID 09/19/15 04/01/17 25/100] Albuterol Neb [Proventil Neb] 2.5 mg IH TID PRN 08/23/16 04/01/17 Baclofen [Lioresal] 10 mg PO BID 08/23/16 04/01/17 Omeprazole [PriLOSEC] 20 mg PO DAILY 08/23/16 04/01/17 Vicks Vaporub Oint [Vicks Vaporub 1 appl TP HS MDD Wash off every 08/23/1604/01 Ointment] morning hydroCHLOROthiazide 25 mg PO DAILY 08/23/16 04/01/17 [Hydrochlorothiazide] risperiDONE [Risperidone] 0.5 mg PO DAILY 08/23/16 04/01/17 Allopurinol [Zyloprim 100 MG] 100 mg PO DAILY 04/01/17 04/01/17 Oxycodone HCl [Oxaydo] 5 mg PO Q4H PRN 04/01/17 04/01/17 Potassium Chloride [Klor-Con 10] 10 meq PO DAILY 04/01/17 04/01/17 Previous Rx's Medication Instructions Recorded amLODIPine [Norvasc] 5 mg PO DAILY #30 tablet 08/27/16 Sennosides [Senna] 8.6 mg PO DAILY PRN #30 tablet 09/12/16 OxyCODONE/APAP 5/325 [Percocet 1 each PO Q6HR PRN #26 tablet 04/01/17 5/325 MG] Allergies Allergy/AdvReac Type Severity Reaction Status Date / Time No Known Allergies Allergy Verified 12/19/17 12:08 Cardiovascular: Denies: chest pain Respiratory: Denies: cough, dyspnea Gastrointestinal: Denies: abdominal pain, nausea, vomiting, diarrhea Neurological: Denies: headache, weakness, numbness, paresthesias Past Medical History - Past Medical History Attestation: Yes The following information was validated with the patient. Source: patient, other Medical history: Reports: asthma, CHF Surgical history: Reports: herniorrhaphy Psychiatric history: Reports: schizophrenia, other CHEMIST ENZYMES history: Reports: no CHEMIST ENZYMES history - Social History Smoking Status: Never smoker Smokeless Tobacco Status: No Alcohol use: Reports: none Drug use: Reports: none Physical Exam - General Limitations: altered mental status General appearance: alert, in no apparent distress - Head Head exam: atraumatic, normocephalic, normal inspection - Eye Eye exam: Present: normal appearance, PERRL, EOMI - ENT ENT exam: normal exam, normal oropharynx, mucous membranes moist - Neck Neck exam: Present: normal inspection, full ROM, trachea midline - Chest Chest inspection: Present: normal inspection, symmetric chest wall rise - Respiratory Respiratory exam: Present: normal lung sounds bilaterally. Absent: respiratory distress, wheezes, stridor, accessory muscle use - Cardiovascular Cardiovascular exam: Present: normal rhythm, normal heart sounds - Abdominal Exam Abdominal exam: Present: soft, Non-Tender. Absent: tenderness, distention, guarding, rebound, rigidity - Extremities Exam Extremities exam: Present: normal inspection, full ROM. Absent: tenderness, pedal edema - Neurological Exam Neurological exam: Present: alert, other (Oriented to person only. Flat affect. Bilateral upper extremity ataxia. Otherwise, no other focal neuro deficits. Please see NIH scale for further detail.) - Expanded Neurological Exam Patient oriented to: Present: person. Absent: place, time Speech: Present: fluid speech Cranial nerves: EOM function (II, III, IV, ): Normal, facial sensation (V): Normal, spinal accessory function (XI): Normal, tongue deviation (XII): Normal Cerebellar function: finger to nose: Abnormal Right, Abnormal Left Cerebellar function: normal gait Motor strength - LUE: 5/5 Motor strength - RUE: 5/5 Motor strength - LLE: 4/5 Motor strength - RLE: 4/5 Upper motor neuron exam: gray neglect: Absent bilaterally Sensory exam upper extremity: light touch: Normal Sensory exam lower extremity: light touch: Normal Coma Scale Eye Opening: Spontaneous Coma Scale Motor Response: Obeys Commands Coma Scale Verbal Response: Confused Coma Scale Total: 14 - Psychiatric Psychiatric exam: Present: normal mood, flat affect - Skin Skin exam: Present: warm, dry, intact, normal color Course Course Narrative: Chest X-Ray 12/19/17 12:23 IMPRESSION: Slight pulmonary vascular congestion. Slight bullous changes. No other significant abnormality. D/ / Immanuel Kaplan MD / Immanuel Kaplan MD Interpreting Provider: Immanuel Kaplan MD Head CT 12/19/17 12:24 IMPRESSION: No acute intracranial abnormality. Slight prominence of the cerebral sulci present. Moderate amount of ischemic change present. The findings consistent with patient's age. No significant change from the prior study. D/ / Immanuel Kaplan MD / Immanuel Kaplan MD Interpreting Provider: Immanuel Kaplan MD Cervical Spine CT 12/19/17 12:25 IMPRESSION: No acute abnormality of the cervical spine. D/ / Ap Renteria MD / Ap Renterai MD Interpreting Provider: Ap Renteria MD Vital Signs Temperature 98.3 F 12/19/17 12:08 Pulse Rate 111 12/19/17 12:08 Respiratory Rate 15 12/19/17 12:08 Blood Pressure 140/76 12/19/17 12:08 O2 Sat by Pulse Oximetry 90 12/19/17 12:08 Temperature 98.3 F 12/19/17 12:08 Pulse Rate 92 12/19/17 14:07 Respiratory Rate 12 12/19/17 14:07 Blood Pressure 144/79 12/19/17 14:07 O2 Sat by Pulse Oximetry 99 12/19/17 14:07 Oxygen Delivery Oxygen Delivery Nasal Cannula Syncope - [facility] Narrative Medical decision making narrative: Currently concern for multiple etiologies for near syncope due to the patient being a poor historian. We will obtain head CT to assess for CVA. Also obtain basic blood work to assess for any electrolyte abnormality that may be cause for near syncope. Also obtain chest x-ray, EKG, troponin level to assess for any cardiac etiology such as UT. This is less likely as patient currently has no chest pain or shortness of breath. Also obtain the BG, beta hydroxybutyric acid, urinalysis due to the patient having high glucose of upper 400s. Patient could have DKA. She is tachycardic. Also check urine for UTI, chest x-ray for pneumonia. 14:15 labs show hypochloremia, hyponatremia, hyperglycemia. hypokalemia treated with 40meq of oral K. Also given 1L NS bolus. No evidence of DKA on labs. Her analysis negative for UTI. No elevation white blood cell count, no abnormality and hemoglobin level. EKG was normal sinus rhythm with no acute ST changes. Head CT and cervical spine CT negative for fracture. Chest x-ray negative. Patient iWe will admit the patient for further care for syncope versus seizure like activity, altered mental status (oriented to person only). Accepted by Dr. Echevarria - Medical Records Medical records reviewed: Yes I reviewed the patient's medical records. - Lab Data Lab results reviewed: Yes I reviewed the patient's lab results. Result diagrams: 12/19/17 12:17 12/19/17 12:17 Lab Results 12/19/17 12/19/17 12/19/17 Range/Units 12:17 12:17 12:17 WBC 9.7 (4.3-11.1) K/mcL RBC 4.80 (3.82-4.97) M/mcL Hgb 13.9 (11.5-15.4) g/dL Hct 40.3 (35.3-44.9) % MCV 84.0 (83.0-100.0) fL MCH 29.0 (28.0-33.3) pg MCHC 34.5 (31.6-35.5) g/dL RDW 13.0 (11.5-14.5) % Plt Count 230 (140-400) K/mcL MPV 10.7 (9.4-12.4) fL Immature Gran % 2.2 (0-4) % Seg Neutrophils % 68.1 % Lymphocytes % 22.9 % Monocytes % 5.2 % Eosinophils % 1.2 % Basophils % 0.4 % Neutrophils # 6.6 (1.6-8.9) K/mcL Lymphocytes # 2.2 (0.6-4.6) K/mcL Monocytes # 0.5 (0.0-1.3) K/mcL Eosinophils # 0.1 (0.0-0.6) K/mcL Basophils # 0.0 (0.0-0.2) K/mcL Nucleated RBCs/100 WBC 0.2 H (0) /100 WBC PT (9.4-12.1) Seconds INR APTT (26.0-36.0) Seconds VBG pH (7.32-7.42) pH Units VBG pCO2 (41-51) mmHg VBG pO2 (25-50) mmHg VBG HCO3 (21-27) mEq/L Sodium 129 L (136-145) mEq/L Potassium 3.0 L (3.5-5.1) mEq/L Chloride 86 L (98-107) mEq/L Carbon Dioxide 29 (23-29) mEq/L BUN 13 (8-23) mg/dL Creatinine 0.80 (0.60-1.20) mg/dL Est GFR ( Amer) > 60 (> 60) Est GFR (Non-Af Amer) > 60 (> 60) BUN/Creatinine Ratio 16 (6-26) Glucose 466 H (70-105) mg/dL Calculated Osmolality 289 (280-300) Calcium 9.8 (8.6-10.3) mg/dL Troponin I < 0.03 (< 0.04) ng/mL Beta-Hydroxybutyric Acd 0.15 (0.02-0.27) mmol/L TSH 5.747 H (0.340-5.600) mcIU/mL Urine Color (Yellow) Urine Clarity (Clear) Urine pH (5.0-8.0) pH Units Ur Specific [place] (1.010-1.025) Urine Protein (Neg-Trace) mg/dL Urine Glucose (UA) (Normal) mg/dL Urine Ketones (Negative) mg/dL Urine Blood (Negative) Urine Nitrite (Negative) Urine Bilirubin (Negative) Urine Urobilinogen (Normal) mg/dL Ur Leukocyte Esterase (Negative) Ur Culture Indicated? (NO) 12/19/17 12/19/17 12/19/17 Range/Units 12:23 12:34 12:52 WBC (4.3-11.1) K/mcL RBC (3.82-4.97) M/mcL Hgb (11.5-15.4) g/dL Hct (35.3-44.9) % MCV (83.0-100.0) fL MCH (28.0-33.3) pg MCHC (31.6-35.5) g/dL RDW (11.5-14.5) % Plt Count (140-400) K/mcL MPV (9.4-12.4) fL Immature Gran % (0-4) % Seg Neutrophils % % Lymphocytes % % Monocytes % % Eosinophils % % Basophils % % Neutrophils # (1.6-8.9) K/mcL Lymphocytes # (0.6-4.6) K/mcL Monocytes # (0.0-1.3) K/mcL Eosinophils # (0.0-0.6) K/mcL Basophils # (0.0-0.2) K/mcL Nucleated RBCs/100 WBC (0) /100 WBC PT 10.9 (9.4-12.1) Seconds INR 1.0 APTT 26.6 (26.0-36.0) Seconds VBG pH 7.38 (7.32-7.42) pH Units VBG pCO2 48 (41-51) mmHg VBG pO2 84 H (25-50) mmHg VBG HCO3 28 H (21-27) mEq/L Sodium (136-145) mEq/L Potassium (3.5-5.1) mEq/L Chloride (98-107) mEq/L Carbon Dioxide (23-29) mEq/L BUN (8-23) mg/dL Creatinine (0.60-1.20) mg/dL Est GFR ( Amer) (> 60) Est GFR (Non-Af Amer) (> 60) BUN/Creatinine Ratio (6-26) Glucose (70-105) mg/dL Calculated Osmolality (280-300) Calcium (8.6-10.3) mg/dL Troponin I (< 0.04) ng/mL Beta-Hydroxybutyric Acd (0.02-0.27) mmol/L TSH (0.340-5.600) mcIU/mL Urine Color Yellow (Yellow) Urine Clarity Clear (Clear) Urine pH 6.0 (5.0-8.0) pH Units Ur Specific [place] > 1.030 H (1.010-1.025) Urine Protein Negative (Neg-Trace) mg/dL Urine Glucose (UA) >=1000 H (Normal) mg/dL Urine Ketones Negative (Negative) mg/dL Urine Blood Negative (Negative) Urine Nitrite Negative (Negative) Urine Bilirubin Negative (Negative) Urine Urobilinogen Normal (Normal) mg/dL Ur Leukocyte Esterase Negative (Negative) Ur Culture Indicated? NO (NO) - Radiology Data Radiology results reviewed: Yes I reviewed the patient's radiology results. Chest X-Ray 12/19/17 12:23 IMPRESSION: Slight pulmonary vascular congestion. Slight bullous changes. No other significant abnormality. D/ / Immanuel Kaplan MD / Immanuel Kaplan MD Interpreting Provider: Immanuel Kaplan MD Head CT 12/19/17 12:24 IMPRESSION: No acute intracranial abnormality. Slight prominence of the cerebral sulci present. Moderate amount of ischemic change present. The findings consistent with patient's age. No significant change from the prior study. D/ / Immanuel Kaplan MD / Immanuel Kaplan MD Interpreting Provider: Immanuel Kaplan MD Cervical Spine CT 12/19/17 12:25 IMPRESSION: No acute abnormality of the cervical spine. D/ / Ap Renteria MD / Ap Renteria MD Interpreting Provider: Ap Renteria MD - EKG Data EKG attestation: Yes I reviewed and interpreted this EKG. EKG results narrative: 12/19/2017 at 12:26. Sinus tachycardia. Rate 109. OR 189. QRS 85. QTC 457. No axis. No acute ST elevation or depression. S.B.A.RMl - S.B.A.RMl Situation: Demographics, MOA Background: Presenting Complaint, Relevant PMH, Meds, & Allergies Assessment: Vital Signs, Course and respsone to treatment, Exam Concerns, Patient/Family Expectation, Pertinant Lab Results Recommendation: Barrier(s) to disposition, Recommendation based on pending studies, treatments, or consults S.B.A.RMl Report Given to: Dr. Swathi Zaman Repor Time: 14:31
[2017-12-19 12:37] LABS: VBG HCO3 28 mEq/L (21-27); VBG PCO2 48 mmHg (41-51); VBG PH 7.38 pH Units (7.32-7.42); VBG PO2 84 mmHg (25-50)
[2017-12-19 12:37] LABS: Basophils % 0.4 %; Eosinophils # 0.1 K/mcL (0.0-0.6); Eosinophils % 1.2 %; Hematocrit 40.3 % (35.3-44.9); Hemoglobin 13.9 g/dL (11.5-15.4); Immature Granulocytes % 2.2 % (0-4); Lymphocytes # 2.2 K/mcL (0.6-4.6); Lymphocytes % 22.9 %; Mean Corpuscular HGB Conc 34.5 g/dL (31.6-35.5); Mean Platelet Volume 10.7 fL (9.4-12.4); Monocytes # 0.5 K/mcL (0.0-1.3); Monocytes % 5.2 %; Neutrophils # 6.6 K/mcL (1.6-8.9); Nucleated Red Blood Cells 0.2 /100 WBC (0); Platelet Count 230 K/mcL (140-400); Segmented Neutrophils % 68.1 %
[2017-12-19 12:43] LABS: Prothrombin Time 10.9 Seconds (9.4-12.1)
[2017-12-19 12:45] LABS: Activated Partial Thrombo Time 26.6 Seconds (26.0-36.0)
[2017-12-19 13:00] LABS: Troponin I < 0.03 ng/mL (< 0.04)
[2017-12-19 13:04] LABS: BUN/Creatinine Ratio 16 (6-26); Blood Urea Nitrogen 13 mg/dL (8-23); Calcium 9.8 mg/dL (8.6-10.3); Carbon Dioxide 29 mEq/L (23-29); Chloride 86 mEq/L (98-107); Glucose 466 mg/dL (70-105); Osmolality,Calculated 289 (280-300); Sodium 129 mEq/L (136-145); eGFR For African Americans > 60 (> 60); eGFR For Non-African Americans > 60 (> 60)
[2017-12-19 13:09] LABS: Bilirubin,Urine Negative (Negative); Blood,Urine Negative (Negative); Clarity,Urine Clear (Clear); Color,Urine Yellow (Yellow); Glucose,Urine (UA) >=1000 mg/dL (Normal); Ketones,Urine Negative (Negative); Leukocyte Esterase,Urine Negative (Negative); Nitrite,Urine Negative (Negative); Protein,Urine Negative (Neg-Trace); Specific Gravity,Urine > 1.030 (1.010-1.025); Urobilinogen,Urine Normal (Normal)
--- NOTE | 2017-12-19 13:09 | Emergency Department Note ---
Disposition Clinical Impression: Seizure-like activity, Near syncope Disposition: Admitted As Inpatient Condition: Fair General Adult HPI - General Chief complaint: ED Seizure Stated complaint: post syncope Time Seen by Provider: 12/19/17 12:04 Source: patient Mode of arrival: ambulatory Limitations: altered mental status - History of Present Illness Pain Scale: 0 - Related Data Home Medications Medication Instructions Recorded Confirmed Calcium Carbonate/Vitamin D3 1 tab PO BID 07/24/15 12/19/17 [Calcium 600 + D Tablet] Alendronate Sodium [Fosamax] 35 mg PO WE 09/19/15 12/19/17 Aspirin 325 mg PO DAILY 09/19/15 12/19/17 Carbidopa/Levodopa [Sinemet 1 tab PO TID 09/19/15 12/19/17] Albuterol Neb [Proventil Neb] 2.5 mg IH TID PRN 08/23/16 12/19/17 Baclofen [Lioresal] 10 mg PO BID 08/23/16 12/19/17 Omeprazole [PriLOSEC] 20 mg PO DAILY 08/23/16 12/19/17 hydroCHLOROthiazide 25 mg PO DAILY 08/23/16 12/19/17 [Hydrochlorothiazide] risperiDONE [Risperidone] 0.5 mg PO DAILY 08/23/16 12/19/17 Allopurinol [Zyloprim 100 MG] 100 mg PO DAILY 04/01/17 12/19/17 Potassium Chloride [Klor-Con 10] 10 meq PO DAILY 04/01/17 12/19/17 Previous Rx's Medication Instructions Recorded amLODIPine [Norvasc] 5 mg PO DAILY #30 tablet 08/27/16 Sennosides [Senna] 8.6 mg PO DAILY PRN #30 tablet 09/12/16 Allergies Allergy/AdvReac Type Severity Reaction Status Date / Time No Known Allergies Allergy Verified 12/19/17 12:08 Cardiovascular: Denies: chest pain Respiratory: Denies: cough, dyspnea Gastrointestinal: Denies: abdominal pain, nausea, vomiting, diarrhea Neurological: Denies: headache, weakness, numbness, paresthesias Past Medical History - Past Medical History Medical history: Reports: asthma, CHF Surgical history: Reports: herniorrhaphy Psychiatric history: Reports: schizophrenia, other [employer] history: Reports: no [employer] history - Social History Smoking Status: Never smoker Smokeless Tobacco Status: No Alcohol use: Reports: none Drug use: Reports: none Physical Exam - General Limitations: altered mental status General appearance: alert, in no apparent distress Course Vital Signs Temperature 98.3 F 12/19/17 12:08 Pulse Rate 111 12/19/17 12:08 Respiratory Rate 15 12/19/17 12:08 Blood Pressure 140/76 12/19/17 12:08 O2 Sat by Pulse Oximetry 90 12/19/17 12:08 Temperature 98.3 F 12/19/17 12:08 Pulse Rate 92 12/19/17 14:07 Respiratory Rate 12 12/19/17 14:07 Blood Pressure 144/79 12/19/17 14:07 O2 Sat by Pulse Oximetry 99 12/19/17 14:07 Oxygen Delivery Oxygen Delivery Nasal Cannula Medical Decision Making - Lab Data Result diagrams: 12/19/17 12:17 12/19/17 12:17 Lab Results 12/19/17 12/19/17 12/19/17 Range/Units 12:17 12:17 12:17 WBC 9.7 (4.3-11.1) K/mcL RBC 4.80 (3.82-4.97) M/mcL Hgb 13.9 (11.5-15.4) g/dL Hct 40.3 (35.3-44.9) % MCV 84.0 (83.0-100.0) fL MCH 29.0 (28.0-33.3) pg MCHC 34.5 (31.6-35.5) g/dL RDW 13.0 (11.5-14.5) % Plt Count 230 (140-400) K/mcL MPV 10.7 (9.4-12.4) fL Immature Gran % 2.2 (0-4) % Seg Neutrophils % 68.1 % Lymphocytes % 22.9 % Monocytes % 5.2 % Eosinophils % 1.2 % Basophils % 0.4 % Neutrophils # 6.6 (1.6-8.9) K/mcL Lymphocytes # 2.2 (0.6-4.6) K/mcL Monocytes # 0.5 (0.0-1.3) K/mcL Eosinophils # 0.1 (0.0-0.6) K/mcL Basophils # 0.0 (0.0-0.2) K/mcL Nucleated RBCs/100 WBC 0.2 H (0) /100 WBC PT (9.4-12.1) Seconds INR APTT (26.0-36.0) Seconds VBG pH (7.32-7.42) pH Units VBG pCO2 (41-51) mmHg VBG pO2 (25-50) mmHg VBG HCO3 (21-27) mEq/L Sodium 129 L (136-145) mEq/L Potassium 3.0 L (3.5-5.1) mEq/L Chloride 86 L (98-107) mEq/L Carbon Dioxide 29 (23-29) mEq/L BUN 13 (8-23) mg/dL Creatinine 0.80 (0.60-1.20) mg/dL Est GFR ( Amer) > 60 (> 60) Est GFR (Non-Af Amer) > 60 (> 60) BUN/Creatinine Ratio 16 (6-26) Glucose 466 H (70-105) mg/dL POC Glucose (70-99) mg/dL Calculated Osmolality 289 (280-300) Calcium 9.8 (8.6-10.3) mg/dL Troponin I < 0.03 (< 0.04) ng/mL Beta-Hydroxybutyric Acd 0.15 (0.02-0.27) mmol/L TSH 5.747 H (0.340-5.600) mcIU/mL Urine Color (Yellow) Urine Clarity (Clear) Urine pH (5.0-8.0) pH Units Ur Specific [place] (1.010-1.025) Urine Protein (Neg-Trace) mg/dL Urine Glucose (UA) (Normal) mg/dL Urine Ketones (Negative) mg/dL Urine Blood (Negative) Urine Nitrite (Negative) Urine Bilirubin (Negative) Urine Urobilinogen (Normal) mg/dL Ur Leukocyte Esterase (Negative) Ur Culture Indicated? (NO) 12/19/17 12/19/17 12/19/17 Range/Units 12:21 12:23 12:34 WBC (4.3-11.1) K/mcL RBC (3.82-4.97) M/mcL Hgb (11.5-15.4) g/dL Hct (35.3-44.9) % MCV (83.0-100.0) fL MCH (28.0-33.3) pg MCHC (31.6-35.5) g/dL RDW (11.5-14.5) % Plt Count (140-400) K/mcL MPV (9.4-12.4) fL Immature Gran % (0-4) % Seg Neutrophils % % Lymphocytes % % Monocytes % % Eosinophils % % Basophils % % Neutrophils # (1.6-8.9) K/mcL Lymphocytes # (0.6-4.6) K/mcL Monocytes # (0.0-1.3) K/mcL Eosinophils # (0.0-0.6) K/mcL Basophils # (0.0-0.2) K/mcL Nucleated RBCs/100 WBC (0) /100 WBC PT 10.9 (9.4-12.1) Seconds INR 1.0 APTT 26.6 (26.0-36.0) Seconds VBG pH 7.38 (7.32-7.42) pH Units VBG pCO2 48 (41-51) mmHg VBG pO2 84 H (25-50) mmHg VBG HCO3 28 H (21-27) mEq/L Sodium (136-145) mEq/L Potassium (3.5-5.1) mEq/L Chloride (98-107) mEq/L Carbon Dioxide (23-29) mEq/L BUN (8-23) mg/dL Creatinine (0.60-1.20) mg/dL Est GFR ( Amer) (> 60) Est GFR (Non-Af Amer) (> 60) BUN/Creatinine Ratio (6-26) Glucose (70-105) mg/dL POC Glucose 439 H* (70-99) mg/dL Calculated Osmolality (280-300) Calcium (8.6-10.3) mg/dL Troponin I (< 0.04) ng/mL Beta-Hydroxybutyric Acd (0.02-0.27) mmol/L TSH (0.340-5.600) mcIU/mL Urine Color (Yellow) Urine Clarity (Clear) Urine pH (5.0-8.0) pH Units Ur Specific [place] (1.010-1.025) Urine Protein (Neg-Trace) mg/dL Urine Glucose (UA) (Normal) mg/dL Urine Ketones (Negative) mg/dL Urine Blood (Negative) Urine Nitrite (Negative) Urine Bilirubin (Negative) Urine Urobilinogen (Normal) mg/dL Ur Leukocyte Esterase (Negative) Ur Culture Indicated? (NO) 12/19/17 Range/Units 12:52 WBC (4.3-11.1) K/mcL RBC (3.82-4.97) M/mcL Hgb (11.5-15.4) g/dL Hct (35.3-44.9) % MCV (83.0-100.0) fL MCH (28.0-33.3) pg MCHC (31.6-35.5) g/dL RDW (11.5-14.5) % Plt Count (140-400) K/mcL MPV (9.4-12.4) fL Immature Gran % (0-4) % Seg Neutrophils % % Lymphocytes % % Monocytes % % Eosinophils % % Basophils % % Neutrophils # (1.6-8.9) K/mcL Lymphocytes # (0.6-4.6) K/mcL Monocytes # (0.0-1.3) K/mcL Eosinophils # (0.0-0.6) K/mcL Basophils # (0.0-0.2) K/mcL Nucleated RBCs/100 WBC (0) /100 WBC PT (9.4-12.1) Seconds INR APTT (26.0-36.0) Seconds VBG pH (7.32-7.42) pH Units VBG pCO2 (41-51) mmHg VBG pO2 (25-50) mmHg VBG HCO3 (21-27) mEq/L Sodium (136-145) mEq/L Potassium (3.5-5.1) mEq/L Chloride (98-107) mEq/L Carbon Dioxide (23-29) mEq/L BUN (8-23) mg/dL Creatinine (0.60-1.20) mg/dL Est GFR ( Amer) (> 60) Est GFR (Non-Af Amer) (> 60) BUN/Creatinine Ratio (6-26) Glucose (70-105) mg/dL POC Glucose (70-99) mg/dL Calculated Osmolality (280-300) Calcium (8.6-10.3) mg/dL Troponin I (< 0.04) ng/mL Beta-Hydroxybutyric Acd (0.02-0.27) mmol/L TSH (0.340-5.600) mcIU/mL Urine Color Yellow (Yellow) Urine Clarity Clear (Clear) Urine pH 6.0 (5.0-8.0) pH Units Ur Specific [place] > 1.030 H (1.010-1.025) Urine Protein Negative (Neg-Trace) mg/dL Urine Glucose (UA) >=1000 H (Normal) mg/dL Urine Ketones Negative (Negative) mg/dL Urine Blood Negative (Negative) Urine Nitrite Negative (Negative) Urine Bilirubin Negative (Negative) Urine Urobilinogen Normal (Normal) mg/dL Ur Leukocyte Esterase Negative (Negative) Ur Culture Indicated? NO (NO) Attestation Statement - Attestation Attestation: I examined this patient and my medical decision-making was reviewed with the SENIOR NET WEB DEVELOPER/PA/Advanced Practice Nurse/Resident Physician. I agree with the documented findings, disposition and treatment plan as described except to the extent set forth below. I did see the patient and spoke with her as well as the staff and also examined the patient. Does have increased confusion compared to baseline. She does have the appearance of postictal phase however no blood in the mouth or urinary incontinence. No history of seizures that we are aware. I did review the previous record. Labs obtained and reviewed. The patient will be admitted to the hospital. Head CT results are pending. No seizure activity at this time - the patient is interactive but more confused than usual. [id number]
[2017-12-19 13:14] LABS: Thyroid Stimulating Hormone 5.747 mcIU/mL (0.340-5.600)
[2017-12-19] MEDS ORDERED: Potassium Chloride Elixir 20 MEQ/15 ML UDC PO ONE (14:45)
[2017-12-19] MEDS ORDERED: 0.9 % Sodium Chloride 1,000 ML IVC ONE (14:45)
[2017-12-19] MEDS ORDERED: Naloxone 0.4 MG/ML INJ IVP PRN (15:21)
[2017-12-19] MEDS ORDERED: Sennosides 8.6 MG TABLET PO PRN (15:31)
[2017-12-19] MEDS ORDERED: Albuterol 2.5 MG/3 ML NEBULIZER IH PRN (15:31)
--- NOTE | 2017-12-19 15:48 | Internal Med History&Physical ---
Date of Encounter: 12/19/17 Time of Encounter: 15:39 Internal Medicine - H&P: HPI Admitted From: Home Plans for Post Hospital Care: Home History of present illness: Ms. Meng is a 62 year old female with past medical history of MRDD with high function, hypertension, Parkinson's, hypertension, diabetes brought to ER by EMS with her caregivers due to concern of tonic-clonic seizure happened around 1140 today morning that lasted almost to 3 minutes. Patient had rolled up eyes , loss consciousness but no urinary or bowel incontinence and did not bite the tongue and eventually went in post ictal phase by the time EMS arrived. In ER patient did not have any active seizure activity but appeared tired. She did not fall or hit the head as caregiver grabbed her before she fell while episode was happening. In ER CT head and C-spine with no acute finding in her chest x- ray with some concern of pulmonary vascular congestion. Patient never had any cardiac workup done in the past. In lab electrolyte imbalance low-sodium, low potassium and high glucose with normal troponin was found. During my interview patient is alert awake but is still looks tired caregiver at bedside. Patient denies any chest pain, shortness of breath, dizziness, headache, nausea, vomiting, urinary or bowel complaint. As per caregiver patient complained of headache and double vision 2 days ago but it resolved spontaneously. Past Med Surg Social Fam HX - Past Medical History Medical history: asthma, CHF Psychiatric history: schizophrenia, other - Past Surgical History Surgical History: herniorrhaphy - Social History Smoking Status: Never smoker Smokeless Tobacco Status: No Alcohol use: none Drug use: none - Family History Mother Living Status: Hx Family Cancer: Yes Father Living Status: Hx Family Cancer: Yes Internal Medicine - H&P: Meds Calcium Carbonate/Vitamin D3 [Calcium 600 + D Tablet] 1 tab PO BID 07/24/15 [ History] Alendronate Sodium [Fosamax] 35 mg PO WE 09/19/15 [History] Aspirin 325 mg PO DAILY 09/19/15 [History] Carbidopa/Levodopa 25/100 [Sinemet 25/100] 1 tab PO TID 09/19/15 [History] Albuterol Neb [Proventil Neb] 2.5 mg IH TID PRN 08/23/16 [History] Baclofen [Lioresal] 10 mg PO BID 08/23/16 [History] Omeprazole [PriLOSEC] 20 mg PO DAILY 08/23/16 [History] hydroCHLOROthiazide [Hydrochlorothiazide] 25 mg PO DAILY 08/23/16 [History] risperiDONE [Risperidone] 0.5 mg PO DAILY 08/23/16 [History] amLODIPine [Norvasc] 5 mg PO DAILY #30 tablet 08/27/16 [Rx] Sennosides [Senna] 8.6 mg PO DAILY PRN #30 tablet 09/12/16 [Rx] Allopurinol [Zyloprim 100 MG] 100 mg PO DAILY 04/01/17 [History] Potassium Chloride [Klor-Con 10] 10 meq PO DAILY 04/01/17 [History] 3 Allergy/AdvReac Type Severity Reaction Status Date / Time No Known Allergies Allergy Verified 12/19/17 12:08 All Systems PM: A 10-system review of systems was performed and is negative for pertinent findings except as documented above in the HPI. - Constitutional Vitals: Temp Pulse Resp BP Pulse Ox 98.3 F 92 12 144/79 99 12/19/17 12:08 12/19/17 14:07 12/19/17 14:07 12/19/17 14:07 12/19/17 14:07 Exam: General appearance: No acute distress, A&O X 3. Appears tired. Caregiver at bedside. Head exam: Atraumatic Eye exam: EOMI, PERRLA ENT exam: Moist oral mucosa Neck nontender, supple Respiratory exam: Clear to auscultation bilaterally Cardiovascular exam: Regular rate and rhythm, no systolic murmur Abdominal exam: Soft, nontender, nondistended, positive bowel sounds Extremities exam: No calf tenderness, no pedal edema Present: Skin-no rash, warm, dry, intact Neurological exam: Alert, awake, oriented 3, CN II-XII intact, no focal deficits. No facial droop. Normal speech. Patient to tired to walk. Motor 5 x 5 in all 4 extremities Internal Med - H&P Results - Labs CBC & Chem 7: 12/19/17 12:17 12/19/17 12:17 - Assessment and plan (1) Seizure-like activity Current Visit: Yes Status: Acute Assessment and plan: Witnessed seizure with postictal phase. No previous history of seizure activity. Need neurological evaluation therefore talked to neurologist. No anti-seizure medicine given in the ER as seizure was already resolved. Neuro check, telemetry, pulse oximetry, swallow study, fall precaution, aspiration and seizure precautions, blood glucose control, temperature control, MRI brain. Will also do CVA workup such as echocardiogram and carotid ultrasound to rule out underlying ischemic stroke especially patient never had any cardiac workup and had history of hypertension and diabetes mellitus. Gentle hydration normal saline 75 mL per hour while keeping patient nothing by mouth. (2) Hyponatremia Current Visit: Yes Status: Acute Assessment and plan: Acute versus subacute hyponatremia. That could be contributing present symptoms. Normal saline gentle hydration, strict I&O's, BMP monitoring. Will consult magician/illusionist if needed (3) Hypokalemia Current Visit: Yes Status: Acute Assessment and plan: Patient has history of hypokalemia in the past. 40 mEq potassium supplementation given in the ER. Will check BMP in the evening and will supplement according to the lab report if needed. (4) Diabetes mellitus Current Visit: Yes Status: Acute Assessment and plan: Hyperglycemia most likely due to acute event as above. Close monitoring of blood glucose level Accu-Chek every 2 hours for now but will change to every 6 hours once blood glucose is started to trend down. Sliding scale insulin. Diabetic diet after completing swallow study. A1c. Does not appear in DKA Qualifiers: Diabetes mellitus type: type 2 Diabetes mellitus rn bariatric insulin use: without correction use Diabetes mellitus complication status: without complication Qualified Code(s): E11.9 - Type 2 diabetes mellitus without complications (5) Hypertension Current Visit: Yes Status: Acute Assessment and plan: Close monitoring of BP. Continue home medicine. Qualifiers: Hypertension type: essential hypertension Qualified Code(s): I10 - Essential (primary) hypertension (6) Psychiatric disorder Current Visit: Yes Status: Acute Assessment and plan: Stable. Close monitoring. Continue home medicine for now (7) DVT prophylaxis Current Visit: Yes Status: Acute Assessment and plan: SCDs - Time Spent With Patient Total time spent is greater than 50% in coordination of care (as documented) at patient's floor/unit and/or counseling patient: 25 - 35 minutes
[2017-12-19] MEDS ORDERED: Dextrose Gel 15 GM/37.5 ML TUBE PO PRN ×2 (15:50)
[2017-12-19] MEDS ORDERED: *HR* Dextrose 50 % in Water (Syg) 50 ML SYRINGE IVP PRN (15:50)
[2017-12-19] MEDS ORDERED: D5% in Water 1,000 ML IVC PRN (15:50)
[2017-12-19 17:29] LABS: Estimated Average Glucose 401 mg/dl; Hemoglobin A1C 15.6 %
[2017-12-19] MEDS: Carbidopa/Levodopa 25/100 TABLET PO SCH (17:46)
[2017-12-19] MEDS: Insulin LISPRO 300 UNITS/3 ML VIAL SQ SCH (18:53)
--- NOTE | 2017-12-19 18:59 | Electrocardiograph Report ---
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
[2017-12-19] MEDS: Baclofen 10 MG TABLET PO SCH (20:19)
[2017-12-19 20:33] LABS: BUN/Creatinine Ratio 16 (6-26); Blood Urea Nitrogen 11 mg/dL (8-23); Calcium 9.7 mg/dL (8.6-10.3); Carbon Dioxide 30 mEq/L (23-29); Chloride 91 mEq/L (98-107); Glucose 318 mg/dL (70-105); Osmolality,Calculated 282 (280-300); Potassium 3.3 mEq/L (3.5-5.1); Sodium 130 mEq/L (136-145); eGFR For African Americans > 60 (> 60); eGFR For Non-African Americans > 60 (> 60)
[2017-12-20] MEDS: Insulin LISPRO 300 UNITS/3 ML VIAL SQ SCH ×4 (01:27→17:22)
[2017-12-20 05:52] LABS: Basophils # 0.1 K/mcL (0.0-0.2); Basophils % 0.5 %; Eosinophils # 0.2 K/mcL (0.0-0.6); Hematocrit 39.6 % (35.3-44.9); Hemoglobin 13.2 g/dL (11.5-15.4); Lymphocytes % 22.2 %; Mean Corpuscular HGB Conc 33.3 g/dL (31.6-35.5); Mean Corpuscular Hemoglobin 28.4 pg (28.0-33.3); Mean Corpuscular Volume 85.3 fL (83.0-100.0); Mean Platelet Volume 10.5 fL (9.4-12.4); Monocytes # 0.6 K/mcL (0.0-1.3); Monocytes % 6.4 %; Neutrophils # 6.2 K/mcL (1.6-8.9); Platelet Count 235 K/mcL (140-400); Red Blood Count 4.64 M/mcL (3.82-4.97); Red Cell Distribution Width 13.5 % (11.5-14.5); Segmented Neutrophils % 67.9 %
[2017-12-20 06:11] LABS: Alanine Aminotransferase 15 Units/L (7-52); Albumin 3.4 g/dL (3.5-5.7); Alkaline Phosphatase 174 Units/L (34-104); Aspartate Amino Transferase 40 Units/L (13-39); BUN/Creatinine Ratio 19 (6-26); Bilirubin,Total 0.5 mg/dL (0.3-1.0); Blood Urea Nitrogen 12 mg/dL (8-23); Calcium 9.6 mg/dL (8.6-10.3); Carbon Dioxide 31 mEq/L (23-29); Chloride 93 mEq/L (98-107); Chol/HDL Ratio 2.9 (0-4.9); Cholesterol 180 mg/dL (< 200); Globulin 3.4 g/dL (2.4-3.5); Glucose 243 mg/dL (70-105); HDL Cholesterol 62 mg/dL (40-59); LDL Cholesterol,Calculated 96 mg/dL (0-99); Osmolality,Calculated 284 (280-300); Potassium 2.9 mEq/L (3.5-5.1); Sodium 133 mEq/L (136-145); Total Protein 6.8 g/dL (6.4-8.9); Triglycerides 108 mg/dL (< 150); eGFR For African Americans > 60 (> 60); eGFR For Non-African Americans > 60 (> 60)
[2017-12-20] MEDS: 0.9 % Sodium Chloride 1,000 ML IVC SCH ×2 (06:17→09:19)
[2017-12-20] MEDS ORDERED: Potassium Chloride 20 MEQ, Lidocaine 1% 2 ML in D5% in Water 250 ML IVPB ONE (08:16)
[2017-12-20] MEDS: risperiDONE 0.25 MG TABLET PO SCH (09:20)
[2017-12-20] MEDS: amLODIPine 5 MG TABLET PO SCH (09:20)
[2017-12-20] MEDS: Aspirin 325 MG TABLET PO SCH (09:20)
[2017-12-20] MEDS: Carbidopa/Levodopa 25/100 TABLET PO SCH ×3 (09:20→17:22)
[2017-12-20] MEDS: Cholecalciferol (D-3) 1,000 UNIT TABLET PO SCH (09:21)
[2017-12-20] MEDS: hydroCHLOROthiazide 25 MG TABLET PO SCH (09:21)
[2017-12-20] MEDS: Baclofen 10 MG TABLET PO SCH ×2 (09:21→19:42)
[2017-12-20 09:36] LABS: Magnesium 1.4 mg/dL (1.6-2.6)
--- NOTE | 2017-12-20 13:31 | Neurology - Consult Note ---
Date of Encounter: 12/20/17 Time of Encounter: 13:26 Assessment and Plan (1) Seizure-like activity Current Visit: Yes Status: Acute This 62 year old woman with Parkinson features, history of psychiatric disorder , HTN, DM who developed seizure like episode, associated with altered mental status and posturing lasting 2-3 minutes, concerning for complex partial seizure , with or without secondary generalization. Since the episode was associated with loss of consciousness, it is less likely that we are dealing with a type of movement disorder. She has no known history of similar episodes therefore at present time i would recommend no antiepileptic therapy. Agree with TIA/CVA work up due to her having risk factor for CVA. These are already done and no significant abnormality identified. Patient does have Parkinson features and baseliine cognitive impairment may also present and this could be associated with risk of partial seizure. She may benefit from outpatient neurology follow up in 2-3 weeks after discharge. Her neurological status back to baseline and okay to discharge from neurology perspective. Thank you very much for the consultation. 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 Will keep her on Dopa therapy no changes. Qualifiers: Parkinsonism type: secondary Parkinsonism Secondary Parkinsonism type: neuroleptic-induced Qualified Code(s): G21.11 - Neuroleptic induced parkinsonism History of Present Illness Chief complaint: seizure like activity HPI: Ms. Meng is a 62 year old female with PMH significant for HTN, DM, Psychiatric disorder, Parkinson disease who developed an episode of syncope vs seizure. Patient is interviewed in the presence of her caregiver who has known her for about year. She has no known history of seizure disorder. Caregiver was walking her slowly and all of a sudden she started walking toward to the left and she was not responding to inquiry. She then was found to stretched out her right arm and her both arms twitched a little bit before her legs started buckle. She was not responding to verbal commands and was in a stare. No tongue biting and no urinary incontinence. Took about few minutes for her to slowly came to. She was having headaches two days prior to the event. Now patient is back to her baseline. Patient has a diagnosis of Parkinson disease. Past Med Surg Social Fam HX - Past Medical History Medical history: asthma, CHF Psychiatric history: schizophrenia, other - Past Surgical History Surgical History: herniorrhaphy - Social History Smoking Status: Never smoker Smokeless Tobacco Status: No Alcohol use: none Drug use: none - Family History Mother Living Status: Hx Family Cancer: Yes Father Living Status: Hx Family Cancer: Yes Medications and Allergies Calcium Carbonate/Vitamin D3 [Calcium 600 + D Tablet] 1 tab PO BID 07/24/15 [ History] Alendronate Sodium [Fosamax] 35 mg PO WE 09/19/15 [History] Aspirin 325 mg PO DAILY 09/19/15 [History] Carbidopa/Levodopa 25/100 [Sinemet 25/100] 1 tab PO TID 09/19/15 [History] Albuterol Neb [Proventil Neb] 2.5 mg IH TID PRN 08/23/16 [History] Baclofen [Lioresal] 10 mg PO BID 08/23/16 [History] Omeprazole [PriLOSEC] 20 mg PO DAILY 08/23/16 [History] hydroCHLOROthiazide [Hydrochlorothiazide] 25 mg PO DAILY 08/23/16 [History] risperiDONE [Risperidone] 0.5 mg PO DAILY 08/23/16 [History] amLODIPine [Norvasc] 5 mg PO DAILY #30 tablet 08/27/16 [Rx] Sennosides [Senna] 8.6 mg PO DAILY PRN #30 tablet 09/12/16 [Rx] Allopurinol [Zyloprim 100 MG] 100 mg PO DAILY 04/01/17 [History] Potassium Chloride [Klor-Con 10] 10 meq PO DAILY 04/01/17 [History] 3 Allergy/AdvReac Type Severity Reaction Status Date / Time No Known Allergies Allergy Verified 12/19/17 12:08 All Systems: The remainder of the systems were reviewed and are negative Physical Examination - Vital Signs Vital Signs: Initial Vital Signs Temp Pulse Resp BP Pulse Ox 98.3 F 111 15 140/76 90 12/19/17 12:08 12/19/17 12:08 12/19/17 12:08 12/19/17 12:08 12/19/17 12:08 - Constitutional General appearance: comfortable - Neurologic Sensorimotor examination: other (Grossly intact) Detailed motor examination: grossly full strength in all extremities Motor examination - right side: 5/5: deltoids, biceps, triceps, wrist flexion, wrist extension, putty glazer, hip flexors, tibialis Anterior, quadriceps, toe extension (EHL), plantarflexion Motor examination - left side: 55: deltoids, biceps, triceps, wrist flexion, wrist extension, hip flexors, putty glazer, quadriceps, tibialis Anterior, toe extension (EHL), plantarflexion Detailed sensory examination: other (Grossly intact) Posture: other (None) Reflex and gait examination: other (Gait not assessed) Reflexes: Biceps: 2+, Triceps: 2+, Brachioradialis: 2+, Patella: 2+, Achilles: 2 + Mental Status Examination: awake, alert, oriented to person, oriented to place, oriented to time, follows commands appropriately, answers questions appropriately, no agnosia, no aphasia, no aproxia Cranial nerve examination: PERRL (Patient does have bradykinesis and mild increased muscle tone bilaterally. No rest tremors noted), EOMI, visual white intact, corneal reflexes brisk symmetrically, sensory to face intact, mastication intact, no facial asymmetry is present, no dysarthria, hearing is intact symmetrically, soft palate elevates bilaterally upon phonation, gag reflex intact, flexes SCM and trapezius muscles symmetrically with full power, tongue protrudes midline, no atrophy or facial fasiculations present Results - Laboratory Findings CBC and BMP: 12/20/17 03:49 12/20/17 03:49 Abnormal lab findings: Abnormal lab results Nucleated RBCs/100 WBC 0.2 /100 WBC (0) H 12/19/17 12:17 VBG pO2 84 mmHg (25-50) H 12/19/17 12:34 VBG HCO3 28 mEq/L (21-27) H 12/19/17 12:34 Sodium 133 mEq/L (136-145) L 12/20/17 03:49 Potassium 2.9 mEq/L (3.5-5.1) L 12/20/17 03:49 Chloride 93 mEq/L (98-107) L 12/20/17 03:49 Carbon Dioxide 31 mEq/L (23-29) H 12/20/17 03:49 Glucose 243 mg/dL (70-105) H 12/20/17 03:49 POC Glucose 266 mg/dL (70-99) H 12/20/17 05:23 Hemoglobin A1c 15.6 % (-5.6) H 12/19/17 12:30 Magnesium 1.4 mg/dL (1.6-2.6) L 12/20/17 03:49 AST 40 Units/L (13-39) H 12/20/17 03:49 Alkaline Phosphatase 174 Units/L (34-104) H 12/20/17 03:49 Albumin 3.4 g/dL (3.5-5.7) L 12/20/17 03:49 Albumin/Globulin Ratio 1.0 (1.1-2.2) L 12/20/17 03:49 HDL Cholesterol 62 mg/dL (40-59) H 12/20/17 03:49 TSH 5.747 mcIU/mL (0.340-5.600) H 12/19/17 12:17 Ur Specific [place] > 1.030 (1.010-1.025) H 12/19/17 12:52 Urine Glucose (UA) >=1000 mg/dL (Normal) H 12/19/17 12:52 - Diagnostic Findings Additional findings: CT/CT head/brain wo con IMPRESSION: No acute intracranial abnormality. Slight prominence of the cerebral sulci present. Moderate amount of ischemic change present. The findings consistent with patient's age. No significant change from the prior study. CT/CT cervical spine wo con IMPRESSION: No acute abnormality of the cervical spine. MR/MR head/brain wo con IMPRESSION: 1. No evidence of an acute infarct. 2. Cerebral and cerebellar parenchymal volume loss with severe chronic microvascular white matter ischemic disease. 3. Chronic lacunar infarct in the left caudate head. EV/EV echocardiogram Impressions: LVEF 55%. Normal LV chamber size, wall thickness and function. Mild left ventricular diastolic dysfunction. Normal right ventricular structure and function. Suboptimal agitated saline study, but was negative for PFO. No evidence of pulmonary hypertension. Impressions: Findings: Bilateral carotid system has nonstenotic plaque. Consult Discharge Plan - Plan Referrals: Radha Bird, AUDIO INSTALLER [Primary Care Provider] -
--- NOTE | 2017-12-20 17:04 | Internal Med Progress Note ---
Date of Encounter: 12/20/17 Time of Encounter: 17:03 - Assessment and plan (1) Seizure-like activity Current Visit: Yes Status: Acute Assessment and plan: No seizure activity at this time-neurology has seen and evaluated the patient- neurology does not recommend any antiepileptic therapy at this time continue with TIA CVA workup-which is negative -neurology recommending outpatient neurology follow-up in 2-3 weeks after discharge-from neurological standpoint- they are okay with discharge (2) Hyponatremia Current Visit: Yes Status: Acute Assessment and plan: Acute versus subacute hyponatremia. Suspect this may be related to hyperglycemia That could be contributing present symptoms. Patient seems to be back to neurological baseline. She is eating and tolerating oral intake we will stop IV fluids at this time continue to monitor BMP strict I&O's Will consult medical delivery driver if needed (3) Hypokalemia Current Visit: Yes Status: Acute Assessment and plan: Patient has history of hypokalemia in the past. -Low this a.m. replaced 20 mEq IV-we will continue to monitor replace as needed Continuous cardiac monitoring (4) Diabetes mellitus Current Visit: Yes Status: Acute Assessment and plan: Blood sugars have been elevated throughout the day we will continue with Accu- Cheks before meals and at bedtime increase sliding scale to medium. A1c was 15- I do not see any anti-diabetic medications on her home list. We will check pharmacy-and investigate further in the meantime we will continue to closely monitor blood sugars place on diabetic diet. We will consult director social service for discharge planning she will not be able to manage insulin due to cognition delay Qualifiers: Diabetes mellitus type: type 2 Diabetes mellitus halfway insulin use: without halfway use Diabetes mellitus complication status: without complication Qualified Code(s): E11.9 - Type 2 diabetes mellitus without complications (5) Hypertension Current Visit: Yes Status: Acute Assessment and plan: Stable at this time Continue home medicine. Qualifiers: Hypertension type: essential hypertension Qualified Code(s): I10 - Essential (primary) hypertension (6) Psychiatric disorder Current Visit: Yes Status: Acute Assessment and plan: Stable. Close monitoring. Continue home medicine for now (7) Parkinsonism Current Visit: Yes Status: Acute Assessment and plan: 1 patient was seen by neurology we will continue with home medications patient will need to follow-up as an outpatient Qualifiers: Parkinsonism type: secondary Parkinsonism Secondary Parkinsonism type: neuroleptic-induced Qualified Code(s): G21.11 - Neuroleptic induced parkinsonism (8) Urinary retention Current Visit: Yes Status: Acute Assessment and plan: Patient had not voided for several hours bladder scan did reveal over 200 and bladder. Bajwa catheter was placed with over 200 out. We will monitor overnight attempt voiding trial in a.m. (9) DVT prophylaxis Current Visit: Yes Status: Acute Assessment and plan: SCDs - Time Spent With Patient Total time spent is greater than 50% in coordination of care (as documented) at patient's floor/unit and/or counseling patient: - Subjective Interval history: Patient was seen and examined at bedside earlier today. She is alert and oriented to self and place. She follows simple commands denies any pain or discomfort at this time. No seizure activity noted no focal deficits noted. - Constitutional Vitals: Temp Pulse Resp BP Pulse Ox 98.2 F 82 15 116/75 97 12/20/17 14:59 12/20/17 14:59 12/20/17 14:59 12/20/17 14:59 12/20/17 14:59 General appearance: Present: A&O X 3 - Head Head exam: Present: atraumatic, normocephalic - Eye Eye exam: Present: PERRL, conjuntiva pink, sclera anicteric Pupils: Present: PERRL - Neck Neck exam general surgery: Present: supple, trachea midline. Absent: lymphadenopathy - Respiratory Respiratory exam: Present: CTAB. Absent: accessory muscle use, rales, rhonchi, wheezes - Cardiovascular Cardiovascular exam: Present: RRR, +S1, +S2. Absent: diastolic murmur, gallop, rubs, systolic murmur - GI/Abdominal GI/Abdominal exam: Present: normal bowel sounds, soft, no peritoneal signs. Absent: distended, tenderness - Extremities Exam Extremities exam: Present: warm, radial pulses palpable and symmetrical. Absent : calf tenderness, cyanotic, pedal edema - Neurological Exam Neurological exam: Present: CN II-XII intact, oriented X3, no focal deficits. Absent: pronater drift, facial droop, speech deficit - Skin Skin exam: Present: dry, intact Internal Medicine: Result - Labs CBC & Chem 7: 12/20/17 03:49 12/20/17 03:49 Labs: Short CBC 12/20/17 Range/Units 03:49 WBC 9.2 (4.3-11.1) K/mcL Hgb 13.2 (11.5-15.4) g/dL Hct 39.6 (35.3-44.9) % Plt Count 235 (140-400) K/mcL Neutrophils # 6.2 (1.6-8.9) K/mcL BMP 12/19/17 12/20/17 20:00 03:49 Sodium 130 L 133 L Potassium 3.3 L 2.9 L Chloride 91 L 93 L Carbon Dioxide 30 H 31 H BUN 11 12 Creatinine 0.67 0.63 Glucose 318 H 243 H Calcium 9.7 9.6 Cardiac Enzymes 12/19/17 Range/Units 22:33 Troponin I 0.03 (< 0.04) ng/mL Liver Function 12/20/17 Range/Units 03:49 Total Bilirubin 0.5 (0.3-1.0) mg/dL AST 40 H (13-39) Units/L ALT 15 (7-52) Units/L Alkaline Phosphatase 174 H (34-104) Units/L Albumin 3.4 L (3.5-5.7) g/dL - ABG Interpretation ABG results: PT/INR, D-dimer PT 10.9 Seconds (9.4-12.1) 12/19/17 12:23 - Impressions Impressions Echocardiogram 12/20/17 15:30 Impressions: LVEF 55%. Normal LV chamber size, wall thickness and function. Mild left ventricular diastolic dysfunction. Normal right ventricular structure and function. Suboptimal agitated saline study, but was negative for PFO. No evidence of pulmonary hypertension. Left Ventricular Wall Motion: Rest Echo Findings All wall segments showed normal motion. Findings: Study Quality * Technically adequate exam. ECG Findings * Normal sinus rhythm. Left Ventricle * LVEF 55%. * Normal LV chamber size, wall thickness and function. * Mild left ventricular diastolic dysfunction. Right Ventricle * Normal right ventricular structure and function. Left Atrium * Mildly dilated left atrium. Right Atrium * Normal right atrial size. Interatrial Septum * Suboptimal agitated saline study, but was negative for PFO. Aortic Valve * Trileaflet aortic valve with normal function. * No aortic stenosis. * Trace aortic regurgitation. Mitral Valve * Normal mitral valve structure and function. * No mitral stenosis. * No mitral regurgitation. Tricuspid Valve * Normal tricuspid valve structure and function. * Trace tricuspid regurgitation. * No evidence of pulmonary hypertension. Pulmonic Valve * Normal pulmonic valve structure and function. * No pulmonic regurgitation. Aorta * Normally sized aortic root. Pericardium * The pericardium appears normal. IVC * Normal IVC dimensions and inspiratory collapse. Pulmonary Artery * Normal visualized portions of the main pulmonary artery. - VTE Documentation of Mechanical Device: Intermittent pneumatic compression device Consult Discharge Plan - Plan Referrals: Radha Bird, COMMUNITY RELATIONS SPECIALIST [Primary Care Provider] -
[2017-12-21] MEDS: Insulin LISPRO 300 UNITS/3 ML VIAL SQ SCH ×6 (00:19→21:05)
[2017-12-21 04:27] LABS: Basophils # 0.1 K/mcL (0.0-0.2); Basophils % 0.6 %; Eosinophils # 0.1 K/mcL (0.0-0.6); Eosinophils % 1.5 %; Hematocrit 37.7 % (35.3-44.9); Hemoglobin 12.5 g/dL (11.5-15.4); Immature Granulocytes % 1.3 % (0-4); Lymphocytes # 1.7 K/mcL (0.6-4.6); Lymphocytes % 18.4 %; Mean Corpuscular HGB Conc 33.2 g/dL (31.6-35.5); Mean Corpuscular Hemoglobin 28.5 pg (28.0-33.3); Mean Corpuscular Volume 86.1 fL (83.0-100.0); Mean Platelet Volume 10.3 fL (9.4-12.4); Monocytes # 0.6 K/mcL (0.0-1.3); Monocytes % 6.5 %; Neutrophils # 6.7 K/mcL (1.6-8.9); Platelet Count 209 K/mcL (140-400); Red Blood Count 4.38 M/mcL (3.82-4.97); Red Cell Distribution Width 13.4 % (11.5-14.5); Segmented Neutrophils % 71.7 %
[2017-12-21 04:53] LABS: BUN/Creatinine Ratio 23 (6-26); Blood Urea Nitrogen 14 mg/dL (8-23); Calcium 8.9 mg/dL (8.6-10.3); Carbon Dioxide 30 mEq/L (23-29); Chloride 99 mEq/L (98-107); Glucose 241 mg/dL (70-105); Osmolality,Calculated 290 (280-300); Potassium 3.1 mEq/L (3.5-5.1); Sodium 136 mEq/L (136-145); eGFR For African Americans > 60 (> 60); eGFR For Non-African Americans > 60 (> 60)
[2017-12-21] MEDS ORDERED: Potassium Chloride 20 MEQ, Lidocaine 1% 2 ML in D5% in Water 250 ML IVPB ONE (07:42)
[2017-12-21] MEDS ORDERED: *HR* Dextrose 50 % in Water (Syg) 50 ML SYRINGE IVP PRN (07:58)
[2017-12-21] MEDS ORDERED: Dextrose Gel 15 GM/37.5 ML TUBE PO PRN ×2 (07:58)
[2017-12-21] MEDS ORDERED: D5% in Water 1,000 ML IVC PRN (07:58)
[2017-12-21] MEDS: risperiDONE 0.25 MG TABLET PO SCH (08:21)
[2017-12-21] MEDS: Baclofen 10 MG TABLET PO SCH ×2 (08:21→21:04)
[2017-12-21] MEDS: hydroCHLOROthiazide 25 MG TABLET PO SCH (08:21)
[2017-12-21] MEDS: Carbidopa/Levodopa 25/100 TABLET PO SCH ×3 (08:21→17:00)
[2017-12-21] MEDS: Aspirin 325 MG TABLET PO SCH (08:21)
[2017-12-21] MEDS: amLODIPine 5 MG TABLET PO SCH (08:21)
[2017-12-21] MEDS: Cholecalciferol (D-3) 1,000 UNIT TABLET PO SCH (08:21)
--- NOTE | 2017-12-21 10:41 | Internal Med Progress Note ---
Date of Encounter: 12/21/17 Time of Encounter: 10:41 - Assessment and plan (1) Seizure-like activity Current Visit: Yes Status: Acute Assessment and plan: Cont to be stable No seizure activity at this time-neurology has seen and evaluated the patient-neurology does not recommend any antiepileptic therapy at this time continue with TIA CVA workup-which is negative -neurology recommending outpatient neurology follow-up in 2-3 weeks after discharge-from neurological standpoint-they are okay with discharge (2) Hyponatremia Current Visit: Yes Status: Acute Assessment and plan: Acute versus subacute hyponatremia. Suspect this may be related to hyperglycemia This is resolved Patient seems to be back to neurological baseline. She is eating and tolerating oral intake we will stop IV fluids at this time continue to monitor BMP strict I&O's Will consult school inspector if needed (3) Hypokalemia Current Visit: Yes Status: Acute Assessment and plan: Patient has history of hypokalemia in the past. -Low this a.m. replaced 20 mEq IV-we will continue to monitor replace as needed Continuous cardiac monitoring (4) Diabetes mellitus Current Visit: Yes Status: Acute Assessment and plan: Blood glucose continues to be elevated we will add low basal insulin we will continue with Accu-Cheks before meals and at bedtime increase sliding scale to medium. A1c was 15-I do not see any anti-diabetic medications on her home list. We will check pharmacy-and investigate further in the meantime we will continue to closely monitor blood sugars place on diabetic diet. We will consult nursing home social worker for discharge planning she will not be able to manage insulin due to cognition delay Qualifiers: Diabetes mellitus type: type 2 Diabetes mellitus usp insulin use: without usp use Diabetes mellitus complication status: without complication Qualified Code(s): E11.9 - Type 2 diabetes mellitus without complications (5) Hypertension Current Visit: Yes Status: Acute Assessment and plan: Stable at this time Continue home medicine. Qualifiers: Hypertension type: essential hypertension Qualified Code(s): I10 - Essential (primary) hypertension (6) Psychiatric disorder Current Visit: Yes Status: Acute Assessment and plan: Stable. Close monitoring. Continue home medicine for now (7) Parkinsonism Current Visit: Yes Status: Acute Assessment and plan: 1 patient was seen by neurology we will continue with home medications patient will need to follow-up as an outpatient Qualifiers: Parkinsonism type: secondary Parkinsonism Secondary Parkinsonism type: neuroleptic-induced Qualified Code(s): G21.11 - Neuroleptic induced parkinsonism (8) Urinary retention Current Visit: Yes Status: Acute Assessment and plan: Patient had not voided for several hours bladder scan did reveal over 200 and bladder. Bajwa was replaced. We will remove and attempt voiding trial (9) Hypomagnesemia Current Visit: Yes Status: Acute Assessment and plan: 1.5 we will replace and recheck (10) DVT prophylaxis Current Visit: Yes Status: Acute Assessment and plan: SCDs - Time Spent With Patient Total time spent is greater than 50% in coordination of care (as documented) at patient's floor/unit and/or counseling patient: - Subjective Interval history: Patient was seen and examined at bedside earlier today. She is alert and oriented to self and place. She follows simple commands denies any pain or discomfort at this time. No seizure activity noted no focal deficits noted. - Constitutional Vitals: Temp Pulse Resp BP Pulse Ox 98.1 F 76 16 127/75 98 12/21/17 07:29 12/21/17 07:29 12/21/17 07:29 12/21/17 07:29 12/21/17 07:29 General appearance: Present: A&O X 3 - Head Head exam: Present: atraumatic, normocephalic - Eye Eye exam: Present: PERRL, conjuntiva pink, sclera anicteric Pupils: Present: PERRL - Neck Neck exam general surgery: Present: supple, trachea midline. Absent: lymphadenopathy - Respiratory Respiratory exam: Present: CTAB. Absent: accessory muscle use, rales, rhonchi, wheezes - Cardiovascular Cardiovascular exam: Present: RRR, +S1, +S2. Absent: diastolic murmur, gallop, rubs, systolic murmur - GI/Abdominal GI/Abdominal exam: Present: normal bowel sounds, soft, no peritoneal signs. Absent: distended, tenderness - Extremities Exam Extremities exam: Present: warm, radial pulses palpable and symmetrical. Absent : calf tenderness, cyanotic, pedal edema - Neurological Exam Neurological exam: Present: CN II-XII intact, oriented X3, no focal deficits. Absent: pronater drift, facial droop, speech deficit - Skin Skin exam: Present: dry, intact Internal Medicine: Result - Labs CBC & Chem 7: 12/21/17 03:47 12/21/17 03:47 Labs: Short CBC 12/21/17 Range/Units 03:47 WBC 9.4 (4.3-11.1) K/mcL Hgb 12.5 (11.5-15.4) g/dL Hct 37.7 (35.3-44.9) % Plt Count 209 (140-400) K/mcL Neutrophils # 6.7 (1.6-8.9) K/mcL BMP 12/21/17 03:47 Sodium 136 Potassium 3.1 L Chloride 99 Carbon Dioxide 30 H BUN 14 Creatinine 0.60 Glucose 241 H Calcium 8.9 - ABG Interpretation ABG results: PT/INR, D-dimer PT 10.9 Seconds (9.4-12.1) 12/19/17 12:23 - VTE Documentation of Mechanical Device: Intermittent pneumatic compression device Consult Discharge Plan - Plan Referrals: Radha Bird, FINANCE INTERN [Primary Care Provider] -
--- NOTE | 2017-12-21 12:39 | Neurology Progress Note ---
Date of Encounter: 12/21/17 Time of Encounter: 12:37 Assessment and Plan (1) Seizure-like activity Current Visit: Yes Status: Acute This 62 year old woman with Parkinson features, history of psychiatric disorder , HTN, DM who developed seizure like episode, associated with altered mental status and posturing lasting 2-3 minutes, concerning for complex partial seizure , with or without secondary generalization. Only one episode so far. no recurrent events. neurological status back to baseline. Will recommend no antiepileptic therapy. Will sign off at this time. please call if any questions (2) Parkinsonism Current Visit: Yes Status: Acute Qualifiers: Parkinsonism type: secondary Parkinsonism Secondary Parkinsonism type: neuroleptic-induced Qualified Code(s): G21.11 - Neuroleptic induced parkinsonism Subjective Principal diagnosis: seizure Interval history: Patient seen and examined. She is doing well. feels better, no discomforts reported. No recurrent seizure like activity. Objective - Constitutional Vitals: Temp Pulse Resp BP Pulse Ox 98.7 F 79 16 143/87 99 12/21/17 11:21 12/21/17 11:21 12/21/17 11:21 12/21/17 11:21 12/21/17 11:21 - Neurological Exam Sensorimotor examination: Present: other (Grossly intact) Motor Examination: Present: grossly full strength in all extremities Motor examination - left side: 5/5: deltoids, biceps, triceps, wrist flexion, wrist extension, hip flexors, locomotive engineer, quadriceps, tibialis Anterior, toe extension (EHL), plantarflexion Sensation intact: Present: other (Grossly intact) Posture: Present: other (None) Reflex and gait examination: other (Gait not assessed) Mental Status Examination: Present: awake, alert, oriented to person, oriented to place, oriented to time, follows commands appropriately, answers questions appropriately, no agnosia, no aphasia, no aproxia Cranial nerve examination: Present: PERRL (Patient does have bradykinesis and mild increased muscle tone bilaterally. No rest tremors noted), EOMI, visual white intact, corneal reflexes brisk symmetrically, sensory to face intact, mastication intact, no facial asymmetry is present, no dysarthria, hearing is intact symmetrically, soft palate elevates bilaterally upon phonation, gag reflex intact, flexes SCM and trapezius muscles symmetrically with full power, tongue protrudes midline, no atrophy or facial fasiculations present - VTE Documentation of Mechanical Device: Intermittent pneumatic compression device Results - Laboratory Findings CBC and BMP: 12/21/17 03:47 12/21/17 03:47 Abnormal lab findings: Abnormal lab results Nucleated RBCs/100 WBC 0.2 /100 WBC (0) H 12/19/17 12:17 VBG pO2 84 mmHg (25-50) H 12/19/17 12:34 VBG HCO3 28 mEq/L (21-27) H 12/19/17 12:34 Potassium 3.1 mEq/L (3.5-5.1) L 12/21/17 03:47 Carbon Dioxide 30 mEq/L (23-29) H 12/21/17 03:47 Glucose 241 mg/dL (70-105) H 12/21/17 03:47 POC Glucose 294 mg/dL (70-99) H 12/21/17 00:11 Hemoglobin A1c 15.6 % (-5.6) H 12/19/17 12:30 Magnesium 1.5 mg/dL (1.6-2.6) L 12/21/17 07:55 AST 40 Units/L (13-39) H 12/20/17 03:49 Alkaline Phosphatase 174 Units/L (34-104) H 12/20/17 03:49 Albumin 3.4 g/dL (3.5-5.7) L 12/20/17 03:49 Albumin/Globulin Ratio 1.0 (1.1-2.2) L 12/20/17 03:49 HDL Cholesterol 62 mg/dL (40-59) H 12/20/17 03:49 TSH 5.747 mcIU/mL (0.340-5.600) H 12/19/17 12:17 Ur Specific [place] > 1.030 (1.010-1.025) H 12/19/17 12:52 Urine Glucose (UA) >=1000 mg/dL (Normal) H 12/19/17 12:52 Consult Discharge Plan - Plan Referrals: Radha Bird, PARKING ENFORCEMENT MANAGER [Primary Care Provider] -
[2017-12-21] MEDS: Insulin DETEMIR 100 UNIT/ML X5UNITS SQ SCH (21:05)
[2017-12-22 05:27] LABS: Basophils # 0.1 K/mcL (0.0-0.2); Basophils % 0.5 %; Eosinophils # 0.2 K/mcL (0.0-0.6); Eosinophils % 1.7 %; Hematocrit 39.7 % (35.3-44.9); Immature Granulocytes % 0.8 % (0-4); Lymphocytes # 1.7 K/mcL (0.6-4.6); Lymphocytes % 16.7 %; Mean Corpuscular HGB Conc 32.7 g/dL (31.6-35.5); Mean Corpuscular Hemoglobin 28.4 pg (28.0-33.3); Mean Corpuscular Volume 86.9 fL (83.0-100.0); Mean Platelet Volume 10.4 fL (9.4-12.4); Monocytes # 0.6 K/mcL (0.0-1.3); Monocytes % 6.4 %; Neutrophils # 7.3 K/mcL (1.6-8.9); Platelet Count 215 K/mcL (140-400); Red Blood Count 4.57 M/mcL (3.82-4.97); Red Cell Distribution Width 13.3 % (11.5-14.5); Segmented Neutrophils % 73.9 %
[2017-12-22 05:47] LABS: BUN/Creatinine Ratio 22 (6-26); Blood Urea Nitrogen 13 mg/dL (8-23); Carbon Dioxide 30 mEq/L (23-29); Chloride 95 mEq/L (98-107); Glucose 244 mg/dL (70-105); Osmolality,Calculated 288 (280-300); Potassium 3.1 mEq/L (3.5-5.1); Sodium 135 mEq/L (136-145); eGFR For African Americans > 60 (> 60); eGFR For Non-African Americans > 60 (> 60)
[2017-12-22] MEDS: hydroCHLOROthiazide 25 MG TABLET PO SCH (08:28)
[2017-12-22] MEDS: Carbidopa/Levodopa 25/100 TABLET PO SCH ×3 (08:28→17:54)
[2017-12-22] MEDS: risperiDONE 0.25 MG TABLET PO SCH (08:28)
[2017-12-22] MEDS: Aspirin 325 MG TABLET PO SCH (08:28)
[2017-12-22] MEDS: Cholecalciferol (D-3) 1,000 UNIT TABLET PO SCH (08:28)
[2017-12-22] MEDS: amLODIPine 5 MG TABLET PO SCH (08:28)
[2017-12-22] MEDS: Baclofen 10 MG TABLET PO SCH ×2 (08:28→21:56)
[2017-12-22] MEDS: Insulin LISPRO 300 UNITS/3 ML VIAL SQ SCH ×4 (08:29→21:56)
--- NOTE | 2017-12-22 14:02 | Internal Med Progress Note ---
Date of Encounter: 12/22/17 Time of Encounter: 14:00 - Assessment and plan (1) Seizure-like activity Current Visit: Yes Status: Acute Assessment and plan: Cont to be stable No seizure activity at this time-neurology has seen and evaluated the patient-neurology does not recommend any antiepileptic therapy at this time - TIA CVA workup- is negative -neurology recommending outpatient neurology follow-up in 2-3 weeks after discharge-from neurological standpoint- they are okay with discharge Patient was seen by PT OT who are recommending ECF placement (2) Hyponatremia Current Visit: Yes Status: Acute Assessment and plan: Acute versus subacute hyponatremia. Suspect this may be related to hyperglycemia This is resolved Patient seems to be back to neurological baseline. She is eating and tolerating oral intake we will stop IV fluids at this time continue to monitor BMP strict I&O's (3) Hypokalemia Current Visit: Yes Status: Acute Assessment and plan: Patient has history of hypokalemia in the past. -Low this a.m. replaced 20 mEq IV-we will continue to monitor replace as needed-we will start on potassium 20 twice a day Continuous cardiac monitoring (4) Diabetes mellitus Current Visit: Yes Status: Acute Assessment and plan: Blood glucose continues to be elevated we will add low basal insulin we will continue with Accu-Cheks before meals and at bedtime increase sliding scale to medium. A1c was 15-I do not see any anti-diabetic medications on her home list. This appears to be new we will continue to closely monitor blood sugars place on diabetic diet. We will consult drug abuse social worker for discharge planning she will not be able to manage insulin due to cognition delay-she may need placement to ECF. I did discuss this with showcase maker Renae Ospina-PT OT has recommended ECF-presently has home health with home health aides only-drug abuse social worker working on discharge planning Qualifiers: Diabetes mellitus type: type 2 Diabetes mellitus prison insulin use: without director digital advertising use Diabetes mellitus complication status: without complication Qualified Code(s): E11.9 - Type 2 diabetes mellitus without complications (5) Hypertension Current Visit: Yes Status: Acute Assessment and plan: Stable at this time Continue home medicine. Qualifiers: Hypertension type: essential hypertension Qualified Code(s): I10 - Essential (primary) hypertension (6) Psychiatric disorder Current Visit: Yes Status: Acute Assessment and plan: Stable. Close monitoring. Continue home medicine for now (7) Parkinsonism Current Visit: Yes Status: Acute Assessment and plan: 1 patient was seen by neurology we will continue with home medications patient will need to follow-up as an outpatient PT OT recommend the ECF placement Qualifiers: Parkinsonism type: secondary Parkinsonism Secondary Parkinsonism type: neuroleptic-induced Qualified Code(s): G21.11 - Neuroleptic induced parkinsonism (8) Urinary retention Current Visit: Yes Status: Resolved Assessment and plan: Patient had not voided for several hours bladder scan did reveal over 200 and bladder. Bajwa was placed-voiding trial completed and patient successfully passed. Has been voiding on her own without difficulty (9) Hypomagnesemia Current Visit: Yes Status: Acute Assessment and plan: 1.5 we will replace and recheck (10) DVT prophylaxis Current Visit: Yes Status: Acute Assessment and plan: SCDs - Time Spent With Patient Total time spent is greater than 50% in coordination of care (as documented) at patient's floor/unit and/or counseling patient: - Subjective Interval history: Patient was seen and examined at bedside earlier today. She is sitting up in a chair watching cartoons. She is alert and oriented to self and place. She follows simple commands denies any pain or discomfort at this time. No seizure activity noted no focal deficits noted. - Constitutional Vitals: Temp Pulse Resp BP Pulse Ox 97.5 F L 77 16 152/95 100 12/22/17 11:10 12/22/17 11:10 12/22/17 11:10 12/22/17 11:10 12/22/17 11:10 General appearance: Present: A&O X 2 - Head Head exam: Present: atraumatic, normocephalic - Eye Eye exam: Present: PERRL, conjuntiva pink, sclera anicteric Pupils: Present: PERRL - Neck Neck exam general surgery: Present: supple, trachea midline. Absent: lymphadenopathy - Respiratory Respiratory exam: Present: CTAB. Absent: accessory muscle use, rales, rhonchi, wheezes - Cardiovascular Cardiovascular exam: Present: RRR, +S1, +S2. Absent: diastolic murmur, gallop, rubs, systolic murmur - GI/Abdominal GI/Abdominal exam: Present: normal bowel sounds, soft, no peritoneal signs. Absent: distended, tenderness - Extremities Exam Extremities exam: Present: warm, radial pulses palpable and symmetrical. Absent : calf tenderness, cyanotic, pedal edema - Neurological Exam Neurological exam: Present: CN II-XII intact, oriented X3, no focal deficits. Absent: pronater drift, facial droop, speech deficit - Skin Skin exam: Present: dry, intact Internal Medicine: Result - Labs CBC & Chem 7: 12/22/17 03:18 12/22/17 03:18 Labs: Short CBC 12/22/17 Range/Units 03:18 WBC 9.9 (4.3-11.1) K/mcL Hgb 13.0 (11.5-15.4) g/dL Hct 39.7 (35.3-44.9) % Plt Count 215 (140-400) K/mcL Neutrophils # 7.3 (1.6-8.9) K/mcL BMP 12/22/17 03:18 Sodium 135 L Potassium 3.1 L Chloride 95 L Carbon Dioxide 30 H BUN 13 Creatinine 0.59 L Glucose 244 H Calcium 9.0 - ABG Interpretation ABG results: PT/INR, D-dimer PT 10.9 Seconds (9.4-12.1) 12/19/17 12:23 - VTE Documentation of Mechanical Device: Intermittent pneumatic compression device Consult Discharge Plan - Plan Referrals: Radha Bird, TRACTOR TRAILER DRIVER [Primary Care Provider] -
[2017-12-22] MEDS ORDERED: Potassium Chloride 20 MEQ, Lidocaine 1% 2 ML in D5% in Water 250 ML IVPB ONE (14:06)
--- NOTE | 2017-12-22 15:59 | Discharge Summary ---
- NOTES TO OUTPATIENT PROVIDER Notes to Outpatient Provider: Patient is to follow-up with neurology in 2-3 weeks. Patient's A1c was 15. Blood glucose were elevated during admission started on insulin we will need close monitoring Orders not resulted at time of discharge: Pending orders 12/23/17 04:00 CBC [Complete Blood Count] [HEME] AM 0400 Chem 7 [Basic Metabolic Panel] AM 0400 Magnesium AM 0400 Date of Encounter: 12/22/17 Time of Encounter: 15:56 - Discharge Diagnosis (1) Seizure-like activity Priority: Primary Status: Acute (2) Hyponatremia Priority: Secondary Status: Acute (3) Hypokalemia Priority: Secondary Status: Acute (4) Diabetes mellitus Priority: Secondary Status: Acute Qualifiers: Diabetes mellitus type: type 2 Diabetes mellitus terminal manager insulin use: without terminal manager use Diabetes mellitus complication status: without complication Qualified Code(s): E11.9 - Type 2 diabetes mellitus without complications (5) Hypertension Priority: Secondary Status: Acute Qualifiers: Hypertension type: essential hypertension Qualified Code(s): I10 - Essential (primary) hypertension (6) Psychiatric disorder Priority: Secondary Status: Acute (7) Parkinsonism Priority: Secondary Status: Acute Qualifiers: Parkinsonism type: secondary Parkinsonism Secondary Parkinsonism type: neuroleptic-induced Qualified Code(s): G21.11 - Neuroleptic induced parkinsonism (8) Urinary retention Priority: Secondary Status: Resolved (9) Hypomagnesemia Priority: Secondary Status: Acute Hospital course: Ms. Meng is a 62 year old female past medical history of MRDD with high function hypertension Parkinson's. Patient was originally brought to the emergency department after experiencing a tonic-clonic seizure that was witnessed by her caregivers that lasted approximately 3 minutes. According to records patient had ruled out eyes lost consciousness but no urinary or bowel incontinence she did not bite her tongue and eventually went in the post ictal phase upon EMS arrival. CT of head and C-spine with no acute findings chest x- ray was some concern of pulmonary vascular congestion , lab work did show hyponatremia low potassium and high glucose troponins were normal. Patient was seen by neurology who did not recommend any anti-elliptic therapy and advised to follow-up in 2-3 weeks with neurology. During admission patient did not experience any more seizure activity. Hypernatremia did correct once blood glucose decreased. A1c was 15 patient denies any treatment for diabetes upon review of records it does not appear that she has ever been treated for diabetes. She was initiated on a low basal rate as well as sliding scale. She is independent at home however does require nursing aides. payroll services analyst were consulted, she will go home with home health nursing to assist with diabetes. She will follow-up with primary care for close monitoring of diabetes as well as follow-up with neurology in 2-3 weeks - Time Spent with Patient Total time spent providing and/or coordinating discharge services: - Discharge Medications Home Medications: Calcium Carbonate/Vitamin D3 [Calcium 600 + D Tablet] 1 tab PO BID 07/24/15 [ History] Alendronate Sodium [Fosamax] 35 mg PO WE 09/19/15 [History] Aspirin 325 mg PO DAILY 09/19/15 [History] Carbidopa/Levodopa 25/100 [Sinemet 25/100] 1 tab PO TID 09/19/15 [History] Albuterol Neb [Proventil Neb] 2.5 mg IH TID PRN 08/23/16 [History] Baclofen [Lioresal] 10 mg PO BID 08/23/16 [History] Omeprazole [PriLOSEC] 20 mg PO DAILY 08/23/16 [History] hydroCHLOROthiazide [Hydrochlorothiazide] 25 mg PO DAILY 08/23/16 [History] risperiDONE [Risperidone] 0.5 mg PO DAILY 08/23/16 [History] amLODIPine [Norvasc] 5 mg PO DAILY #30 tablet 08/27/16 [Rx] Sennosides [Senna] 8.6 mg PO DAILY PRN #30 tablet 09/12/16 [Rx] Allopurinol [Zyloprim 100 MG] 100 mg PO DAILY 04/01/17 [History] Potassium Chloride [Klor-Con 10] 10 meq PO DAILY 04/01/17 [History] Allergies/Adverse Reactions: 3 Allergy/AdvReac Type Severity Reaction Status Date / Time No Known Allergies Allergy Verified 12/19/17 12:08 Date of admission: 12/19/17 15:59 Primary care physician: Radha Bird CNP Consults: 12/21/17 07:43 Consult to Hand Counter [CONS] Routine Reason for SW Consult: discharge planning 12/21/17 09:48 Consult to Physical Therapy [CONS] Routine Comment: Evaluate, develop and implement POC Reason for Consult: gen weakness, unable to provide self care at home Does patient have active BEDREST order?: No Is patient medically & hemodynamically stable?: Yes Patient assessed for mobility or mobilized this visit?: No 12/21/17 09:50 Consult to Occupational Therapy [CONS] Routine Comment: Evaluate, develop and implement POC Reason for Consult: unable to provide self care at home, generalized weakness Does patient have active BEDREST order?: No Is patient medically & hemodynamically stable?: Yes Patient assessed for mobility or mobilized this visit?: No Discharging clinician: Cortney Riley Anticipated date of discharge: 12/23/17 - Constitutional Vitals: Temp Pulse Resp BP Pulse Ox 97.5 F L 77 16 152/95 100 12/22/17 11:10 12/22/17 11:10 12/22/17 11:10 12/22/17 11:10 12/22/17 11:10 General appearance: Present: A&O X 2 - Head Head exam: Present: atraumatic, normocephalic - Eye Eye exam: Present: PERRL, conjuntiva pink, sclera anicteric Pupils: Present: PERRL - Neck Neck exam general surgery: Present: supple, trachea midline. Absent: lymphadenopathy - Respiratory Respiratory exam: Present: CTAB. Absent: accessory muscle use, rales, rhonchi, wheezes - Cardiovascular Cardiovascular exam: Present: RRR, +S1, +S2. Absent: diastolic murmur, gallop, rubs, systolic murmur - GI/Abdominal GI/Abdominal exam: Present: normal bowel sounds, soft, no peritoneal signs. Absent: distended, tenderness - Extremities Exam Extremities exam: Present: warm, radial pulses palpable and symmetrical. Absent : calf tenderness, cyanotic, pedal edema - Neurological Exam Neurological exam: Present: CN II-XII intact, oriented X3, no focal deficits. Absent: pronater drift, facial droop, speech deficit - Skin Skin exam: Present: dry, intact - Patient Status Disposition: Home Health Service Condition: Fair - Discharge Instructions Instructions: Diabetes Mellitus Type 2 in Adults (DC), Chronic Hypertension (DC ) Follow Up With: Radha Bird, SECRET SERVICE AGENT [Primary Care Provider] - - Diet and Activity Activity: as per physical therapy Diet: diabetic diet - VTE Documentation of Mechanical Device: Intermittent pneumatic compression device
--- NOTE | 2017-12-22 16:19 | Physician Discharge Referral ---
Home Health/Hosp Referral Info Transfer to: Home Health Attending Provider: Osvaldo Barr Provider in Charge Post Discharge: PCP - Diagnosis (1) Seizure-like activity Priority: Primary Status: Acute (2) Hyponatremia Priority: Secondary Status: Acute (3) Hypokalemia Priority: Secondary Status: Acute (4) Diabetes mellitus Priority: Secondary Status: Acute (5) Hypertension Priority: Secondary Status: Acute (6) Psychiatric disorder Priority: Secondary Status: Acute (7) Parkinsonism Priority: Secondary Status: Acute (8) Urinary retention Priority: Secondary Status: Resolved (9) Hypomagnesemia Priority: Secondary Status: Acute - Respiratory Orders Smoking Cessation: Smoking cessation has been advised. For more information, call the [place] Tobacco Quit Line at 4-718-OWVB-NOW. - Diet/Nutrition Diet/Nutrition Orders: No Concentrated Sweets - Activity Activity Orders: Up [place] - Services Needed Following services are medically necessary services: Nursing, Home Health Aide - Transfer Medications Home Medications: Calcium Carbonate/Vitamin D3 [Calcium 600 + D Tablet] 1 tab PO BID 07/24/15 [ History] Alendronate Sodium [Fosamax] 35 mg PO WE 09/19/15 [History] Aspirin 325 mg PO DAILY 09/19/15 [History] Carbidopa/Levodopa 25/100 [Sinemet 25/100] 1 tab PO TID 09/19/15 [History] Albuterol Neb [Proventil Neb] 2.5 mg IH TID PRN 08/23/16 [History] Baclofen [Lioresal] 10 mg PO BID 08/23/16 [History] Omeprazole [PriLOSEC] 20 mg PO DAILY 08/23/16 [History] hydroCHLOROthiazide [Hydrochlorothiazide] 25 mg PO DAILY 08/23/16 [History] risperiDONE [Risperidone] 0.5 mg PO DAILY 08/23/16 [History] amLODIPine [Norvasc] 5 mg PO DAILY #30 tablet 08/27/16 [Rx] Sennosides [Senna] 8.6 mg PO DAILY PRN #30 tablet 09/12/16 [Rx] Allopurinol [Zyloprim 100 MG] 100 mg PO DAILY 04/01/17 [History] Potassium Chloride [Klor-Con 10] 10 meq PO DAILY 04/01/17 [History] Allergies/Adverse Reactions: 3 Allergy/AdvReac Type Severity Reaction Status Date / Time No Known Allergies Allergy Verified 12/19/17 12:08 Certification: Further, I certify that my clinical findings support that this patient is homebound (i.e. absences from home require considerable and taxing effort and are for medical reasons or [employer] services or infrequently or short duration when for other reasons) because: Homebound Reason: Patient requires assistance of a person or device to safely leave home Attestation: My signature below is to certify that this patient is under my care and that I, or nurse practitioner, or a physician's bookkeeper assistant working with me, has a face-to -face encounter with this patient.
[2017-12-22] MEDS: Insulin DETEMIR 100 UNIT/ML X5UNITS SQ SCH (21:56)
[2017-12-23 04:01] LABS: Basophils % 0.4 %; Eosinophils # 0.3 K/mcL (0.0-0.6); Eosinophils % 2.3 %; Hematocrit 40.2 % (35.3-44.9); Hemoglobin 13.7 g/dL (11.5-15.4); Immature Granulocytes % 0.6 % (0-4); Lymphocytes # 1.3 K/mcL (0.6-4.6); Lymphocytes % 11.4 %; Mean Corpuscular HGB Conc 34.1 g/dL (31.6-35.5); Mean Corpuscular Hemoglobin 28.7 pg (28.0-33.3); Mean Corpuscular Volume 84.1 fL (83.0-100.0); Mean Platelet Volume 10.4 fL (9.4-12.4); Monocytes # 0.7 K/mcL (0.0-1.3); Neutrophils # 8.7 K/mcL (1.6-8.9); Platelet Count 216 K/mcL (140-400); Red Blood Count 4.78 M/mcL (3.82-4.97); Red Cell Distribution Width 13.4 % (11.5-14.5); Segmented Neutrophils % 79.3 %
[2017-12-23 04:23] LABS: BUN/Creatinine Ratio 28 (6-26); Blood Urea Nitrogen 16 mg/dL (8-23); Calcium 9.4 mg/dL (8.6-10.3); Carbon Dioxide 29 mEq/L (23-29); Chloride 96 mEq/L (98-107); Glucose 264 mg/dL (70-105); Magnesium 1.5 mg/dL (1.6-2.6); Osmolality,Calculated 290 (280-300); Sodium 135 mEq/L (136-145); eGFR For African Americans > 60 (> 60); eGFR For Non-African Americans > 60 (> 60)
--- NOTE | 2017-12-23 07:38 | Internal Med Progress Note ---
Date of Encounter: 12/23/17 Time of Encounter: 07:36 - Assessment and plan (1) Seizure-like activity Current Visit: Yes Status: Acute Assessment and plan: Patient initially presented with seizure-like activity. She has not had any seizure activity since admission and she continues to be stable. Neurology has evaluated the and does not recommend antiepileptic therapy at this time - TIA CVA workup- is negative -neurology recommending follow-up within 2-3 weeks after discharge. Per neurology's perspective the patient is safe for discharge and they have signed off. Patient was seen by PT OT who are recommending ECF placement Discharge this afternoon (2) Hyponatremia Current Visit: Yes Status: Resolved Assessment and plan: Acute versus subacute hyponatremia. Hyponatremia likely secondary to hyperglycemia. Patient seems to be back to neurological baseline. She is eating and tolerating oral intake. (3) Hypokalemia Current Visit: Yes Status: Acute Assessment and plan: Patient has history of hypokalemia -potassium 4.0 this morning, this is the best it has been since admission. She has been receiving 20 meq oral potassium twice a day. This treatment appears to be effective. She will be discharged with 20 in the every afternoon potassium daily Continuous cardiac monitoring (4) Diabetes mellitus Current Visit: Yes Status: Acute Assessment and plan: Blood glucose still elevated but improving as of this morning. Today's morning blood glucose was 206. The patient denies any history of diabetes, further review of her medical record does not indicate she has ever been diagnosed with diabetes. She is not taking any antidiabetic medications. Her A1c was admission was 15. Due to continued elevated blood glucose I will increase the patient's basal dose. However, the patient does have some cognitive delay and is unclear whether or not she will be able to manage insulin therapy on her own. It is recommended that she go to an ECF. However, she currently has home health aides. advisory services associate working on discharge planning Qualifiers: Diabetes mellitus type: type 2 Diabetes mellitus nursing home insulin use: without terminal operations supervisor use Diabetes mellitus complication status: without complication Qualified Code(s): E11.9 - Type 2 diabetes mellitus without complications (5) Hypertension Current Visit: Yes Status: Acute Assessment and plan: Stable at this time. Continue home medicine. Qualifiers: Hypertension type: essential hypertension Qualified Code(s): I10 - Essential (primary) hypertension (6) Psychiatric disorder Current Visit: Yes Status: Acute Assessment and plan: Stable. Close monitoring. Continue home education while inpatient and at discharge (7) Parkinsonism Current Visit: Yes Status: Acute Assessment and plan: She has been seen by neurology. Okay to continue home parkinsonian medications , patient will need to follow-up as an outpatient with neurology in 2-3 weeks. PT OT recommended ECF placement advisory services associate assisting with discharge planning Qualifiers: Parkinsonism type: secondary Parkinsonism Secondary Parkinsonism type: neuroleptic-induced Qualified Code(s): G21.11 - Neuroleptic induced parkinsonism (8) Urinary retention Current Visit: Yes Status: Resolved Assessment and plan: Has been voiding on her own without difficulty, no difficulties voiding overnight (9) Hypomagnesemia Current Visit: Yes Status: Acute Assessment and plan: Magnesium 1.5 today. We will replace with oral Mag-Ox as the patient no longer has an IV. She will likely discharge this afternoon. - Time Spent With Patient Total time spent is greater than 50% in coordination of care (as documented) at patient's floor/unit and/or counseling patient: 25 - 35 minutes - Subjective Interval history: Patient was seen and examined at bedside earlier this morning. She was found to be resting comfortably in bed and watching cartoons. She is alert and oriented to self and place and able to follow commands. She denies any discomfort or distress at this time. She denies any seizure-like activity overnight, further review with staff confirms she experience no seizure activity overnight. - Constitutional Vitals: Temp Pulse Resp BP Pulse Ox 98.8 F 83 17 129/79 93 12/23/17 06:29 12/23/17 06:29 12/23/17 06:29 12/23/17 06:29 12/23/17 06:29 General appearance: Present: A&O X 2 - Head Head exam: Present: atraumatic, normocephalic - Eye Eye exam: Present: EOMI, PERRL, conjuntiva pink, sclera anicteric - Neck Neck exam general surgery: Present: supple, trachea midline. Absent: lymphadenopathy - Respiratory Respiratory exam: Present: CTAB. Absent: accessory muscle use, rales, rhonchi, wheezes - Cardiovascular Cardiovascular exam: Present: RRR, +S1, +S2. Absent: diastolic murmur, gallop, rubs, systolic murmur - GI/Abdominal GI/Abdominal exam: Present: normal bowel sounds, soft, no peritoneal signs. Absent: distended, tenderness - Extremities Exam Extremities exam: Present: normal capillary refill, normal inspection, radial pulses palpable and symmetrical. Absent: calf tenderness, pedal edema, tenderness - Neurological Exam Neurological exam: Present: alert, CN II-XII intact, reflexes normal, strengths equal and symetr throughout. Absent: no focal deficits, pronater drift, facial droop, speech deficit Additional comments: Oriented to self and place - Psychiatric Psychiatric exam: Present: normal affect, normal mood - Skin Skin exam: Present: dry, intact Internal Medicine: Result - Labs CBC & Chem 7: 12/23/17 03:19 12/23/17 03:19 Labs: Short CBC 12/23/17 Range/Units 03:19 WBC 10.9 (4.3-11.1) K/mcL Hgb 13.7 (11.5-15.4) g/dL Hct 40.2 (35.3-44.9) % Plt Count 216 (140-400) K/mcL Neutrophils # 8.7 (1.6-8.9) K/mcL BMP 12/23/17 03:19 Sodium 135 L Potassium 4.0 Chloride 96 L Carbon Dioxide 29 BUN 16 Creatinine 0.58 L Glucose 264 H Calcium 9.4 - ABG Interpretation ABG results: PT/INR, D-dimer PT 10.9 Seconds (9.4-12.1) 12/19/17 12:23 - VTE Documentation of Mechanical Device: Intermittent pneumatic compression device Consult Discharge Plan - Plan Instructions: Diabetes Mellitus Type 2 in Adults (DC), Chronic Hypertension (DC ) Referrals: Radha Bird CNP [Primary Care Provider] - 12/25/17 2:40 pm
--- NOTE | 2017-12-23 07:56 | Discharge Summary ---
- NOTES TO OUTPATIENT PROVIDER Notes to Outpatient Provider: Patient is to follow-up with neurology in 2-3 weeks. Patient's A1c was 15. Blood glucose were elevated during admission started on prandial and basal insulin. She will need close monitoring, once glucose has improved she may be able to take oral hypoglycemic agents versus subcutaneous insulin. With her cognitive delays this may be safer alternative. Orders not resulted at time of discharge: Pending orders 12/23/17 12:00 BMP [Basic Metabolic Panel] Routine Date of Encounter: 12/23/17 Time of Encounter: 07:54 - Discharge Diagnosis (1) Seizure-like activity Priority: Primary Status: Acute Assessment and Plan: Patient initially presented with seizure-like activity. She has not had any seizure activity since admission and she continues to be stable. Neurology has evaluated the and does not recommend antiepileptic therapy at this time - TIA CVA workup- is negative -neurology recommending follow-up within 2-3 weeks after discharge. Per neurology's perspective the patient is safe for discharge and they have signed off. Patient was seen by PT OT who are recommending ECF placement Discharge this afternoon (2) Hyponatremia Priority: Secondary Status: Resolved Assessment and Plan: Acute versus subacute hyponatremia. Hyponatremia likely secondary to hyperglycemia. Patient seems to be back to neurological baseline. She is eating and tolerating oral intake. (3) Hypokalemia Priority: Secondary Status: Acute Assessment and Plan: Patient has history of hypokalemia -potassium 4.0 this morning, this is the best it has been since admission. She has been receiving 20 meq oral potassium twice a day. This treatment appears to be effective. She will be discharged with 20 in the every afternoon potassium daily Continuous cardiac monitoring (4) Diabetes mellitus Priority: Secondary Status: Acute Assessment and Plan: Blood glucose still elevated but improving as of this morning. Today's morning blood glucose was 206. The patient denies any history of diabetes, further review of her medical record does not indicate she has ever been diagnosed with diabetes. She is not taking any antidiabetic medications. Her A1c was admission was 15. Due to continued elevated blood glucose I will increase the patient's basal dose. However, the patient does have some cognitive delay and is unclear whether or not she will be able to manage insulin therapy on her own. It is recommended that she go to an ECF. However, she currently has home health aides. technical services manager working on discharge planning Qualifiers: Diabetes mellitus type: type 2 Diabetes mellitus latin teacher insulin use: without latin teacher use Diabetes mellitus complication status: without complication Qualified Code(s): E11.9 - Type 2 diabetes mellitus without complications (5) Hypertension Priority: Secondary Status: Acute Assessment and Plan: Stable at this time. Continue home medicine. Qualifiers: Hypertension type: essential hypertension Qualified Code(s): I10 - Essential (primary) hypertension (6) Psychiatric disorder Priority: Secondary Status: Acute Assessment and Plan: Stable. Close monitoring. Continue home education while inpatient and at discharge (7) Parkinsonism Priority: Secondary Status: Acute Assessment and Plan: She has been seen by neurology. Okay to continue home parkinsonian medications , patient will need to follow-up as an outpatient with neurology in 2-3 weeks. PT OT recommended ECF placement technical services manager assisting with discharge planning Qualifiers: Parkinsonism type: secondary Parkinsonism Secondary Parkinsonism type: neuroleptic-induced Qualified Code(s): G21.11 - Neuroleptic induced parkinsonism (8) Urinary retention Priority: Secondary Status: Resolved Assessment and Plan: Has been voiding on her own without difficulty, no difficulties voiding overnight (9) Hypomagnesemia Priority: Secondary Status: Acute Assessment and Plan: Magnesium 1.5 today. We will replace with oral Mag-Ox as the patient no longer has an IV. She will likely discharge this afternoon. Hospital course: Ms. Meng is a 62 year old female with a PMH of MRDD and parkinsonian's disease. She was originally brought to the ED due to tonic-clonic seizure with the posturing lasting approximately 2-3 minutes. She does have a prior history of tonic-clonic seizures. Neurological workup was negative for any acute findings. During her stay she was noted to have hyponatremia, hypokalemia and hypomagnesemia as well as hyperglycemia. Hyponatremia likely secondary to hyperglycemia. Serum sodium improved with improvement of blood glucose. She has no official diagnosis of diabetes upon review of prior medical history. However, she was hyperglycemic and noted to have an A1c of 15. Blood glucose improved with low sliding scale and basal insulin coverage. However, there is some concern to discharge her with subcutaneous insulin as she is a cognitive delay and is unclear whether or not she will be able to manage her diabetes herself. Currently at this time she is independent at home and has home health aides, however, I do not think this will be sufficient enough to help her manage her diabetes. Per my assessment, any assessment of PT/OT the patient would benefit from an ECF. technical services manager has been consulted and appears that the patient will discharge with home health nursing and that they will assist with diabetes management. She is follow-up with primary care within a week of discharge for close monitoring of diabetes as well as follow-up with neurology in 2-3 weeks. Discharge discussed with: patient, nurse, social work Time spent discussing smoking cessation with patient: 3 to 10 minutes - Time Spent with Patient Total time spent providing and/or coordinating discharge services: Greater than 30 minutes - Discharge Medications Prescriptions: Dextrose Gel [Gluctose] 30 gm PO ONCE PRN #15 gel..gram. PRN Reason: Hypoglycemia Home Medications: Calcium Carbonate/Vitamin D3 [Calcium 600 + D Tablet] 1 tab PO BID 07/24/15 [ History] Alendronate Sodium [Fosamax] 35 mg PO WE 09/19/15 [History] Aspirin 325 mg PO DAILY 09/19/15 [History] Carbidopa/Levodopa 25/100 [Sinemet 25/100] 1 tab PO TID 09/19/15 [History] Albuterol Neb [Proventil Neb] 2.5 mg IH TID PRN 08/23/16 [History] Baclofen [Lioresal] 10 mg PO BID 08/23/16 [History] Omeprazole [PriLOSEC] 20 mg PO DAILY 08/23/16 [History] hydroCHLOROthiazide [Hydrochlorothiazide] 25 mg PO DAILY 08/23/16 [History] risperiDONE [Risperidone] 0.5 mg PO DAILY 08/23/16 [History] amLODIPine [Norvasc] 5 mg PO DAILY #30 tablet 08/27/16 [Rx] Sennosides [Senna] 8.6 mg PO DAILY PRN #30 tablet 09/12/16 [Rx] Allopurinol [Zyloprim 100 MG] 100 mg PO DAILY 04/01/17 [History] Potassium Chloride [Klor-Con 10] 10 meq PO DAILY 04/01/17 [History] Cholecalciferol (D-3) [Vitamin D] 1,000 unit PO DAILY tablet 12/23/17 [Rx] Dextrose Gel [Gluctose] 30 gm PO ONCE PRN gel..gram. 12/23/17 [Rx] Dextrose Gel [Gluctose] 30 gm PO ONCE PRN #15 gel..gram. 12/23/17 [Rx] Insulin Aspart (Niacinamide) [Fiasp 100 Unit/ml Vial] 5 unit SQ TIDWM #450 vial 12/23/17 [Rx] Insulin DETEMIR [Levemir] 5 unit SQ HS #150 mls 12/23/17 [Rx] Allergies/Adverse Reactions: 3 Allergy/AdvReac Type Severity Reaction Status Date / Time No Known Allergies Allergy Verified 12/19/17 12:08 Date of admission: 12/19/17 15:59 Primary care physician: Radha Bird CNP Consults: 12/21/17 07:43 Consult to Cogeneration Technician [CONS] Routine Reason for SW Consult: discharge planning 12/21/17 09:48 Consult to Physical Therapy [CONS] Routine Comment: Evaluate, develop and implement POC Reason for Consult: gen weakness, unable to provide self care at home Does patient have active BEDREST order?: No Is patient medically & hemodynamically stable?: Yes Patient assessed for mobility or mobilized this visit?: No 12/21/17 09:50 Consult to Occupational Therapy [CONS] Routine Comment: Evaluate, develop and implement POC Reason for Consult: unable to provide self care at home, generalized weakness Does patient have active BEDREST order?: No Is patient medically & hemodynamically stable?: Yes Patient assessed for mobility or mobilized this visit?: No Discharging clinician: Teddy Hawthorne Anticipated date of discharge: 12/23/17 - Constitutional Vitals: Temp Pulse Resp BP Pulse Ox 98.8 F 83 17 129/79 93 12/23/17 06:29 12/23/17 06:29 12/23/17 06:29 12/23/17 06:29 12/23/17 06:29 General appearance: Present: A&O X 2 - Head Head exam: Present: atraumatic, normocephalic - Eye Eye exam: Present: PERRL, conjuntiva pink, sclera anicteric Pupils: Present: PERRL - Respiratory Respiratory exam: Present: CTAB. Absent: accessory muscle use, rales, rhonchi, wheezes - Cardiovascular Cardiovascular exam: Present: RRR, +S1, +S2. Absent: diastolic murmur, gallop, rubs, systolic murmur - GI/Abdominal GI/Abdominal exam: Present: normal bowel sounds, soft, no peritoneal signs. Absent: distended, tenderness - Extremities Exam Extremities exam: Present: warm, radial pulses palpable and symmetrical. Absent : calf tenderness, cyanotic, pedal edema - Neurological Exam Neurological exam: Present: alert, CN II-XII intact, no focal deficits. Absent : pronater drift, facial droop, speech deficit Additional comments: Oriented to self and place - Skin Skin exam: Present: dry, intact - Patient Status Disposition: Home Health Service Condition: Fair Functional capacity at discharge: uses cane/walker (Rollator) Overall status at discharge: patient is back to baseline - Discharge Instructions Instructions: Diabetes Mellitus Type 2 in Adults (DC), Chronic Hypertension (DC ) Follow Up With: Radha Bird CNP [Primary Care Provider] - 12/25/17 2:40 pm - Diet and Activity Activity: ambulate only with your walker Diet: advance to your usual diet - VTE Documentation of Mechanical Device: Intermittent pneumatic compression device
[2017-12-23] MEDS: Cholecalciferol (D-3) 1,000 UNIT TABLET PO SCH (08:11)
[2017-12-23] MEDS: hydroCHLOROthiazide 25 MG TABLET PO SCH (08:11)
[2017-12-23] MEDS: Carbidopa/Levodopa 25/100 TABLET PO SCH ×2 (08:12→13:08)
[2017-12-23] MEDS: risperiDONE 0.25 MG TABLET PO SCH (08:12)
[2017-12-23] MEDS: Aspirin 325 MG TABLET PO SCH (08:12)
[2017-12-23] MEDS: amLODIPine 5 MG TABLET PO SCH (08:12)
[2017-12-23] MEDS: Baclofen 10 MG TABLET PO SCH (08:12)
[2017-12-23] MEDS: Insulin LISPRO 300 UNITS/3 ML VIAL SQ SCH ×2 (08:17→13:08)
[2017-12-23] MEDS ORDERED: Magnesium Oxide 400 MG TABLET PO SCH (09:00)
[2017-12-23 10:43] VITALS: BP 126/78
[2017-12-23 12:46] LABS: BUN/Creatinine Ratio 23 (6-26); Blood Urea Nitrogen 16 mg/dL (8-23); Calcium 10.1 mg/dL (8.6-10.3); Carbon Dioxide 29 mEq/L (23-29); Chloride 96 mEq/L (98-107); Glucose 179 mg/dL (70-105); Osmolality,Calculated 292 (280-300); Potassium 4.2 mEq/L (3.5-5.1); Sodium 138 mEq/L (136-145); eGFR For African Americans > 60 (> 60); eGFR For Non-African Americans > 60 (> 60)
[2017-12-24] MEDS ORDERED: NON-FORMULARY MEDICATION 1 EACH EACH (Alendronate Sodium [Fosamax] 35 MG) PO SCH (15:31)
== END 2017-12-23 14:47 | disposition home health service (06) | DRG 101 ==
LOC: 3BNU 12:02 → EMEROO 12:02 → 3BNU 15:43
PROVIDERS: ADMIT Internal Medicine; ATTEND Internal Medicine

== ENCOUNTER 2021-09-07 09:46 | Inpatient (IN) ==
[2021-09-07] MEDS: 0.9 % Sodium Chloride 1,000 ML IVC SCH ×2 (10:04→12:24)
[2021-09-07 10:18] LABS: Basophils # 0.1 K/mcL (0.0-0.2); Basophils % 0.5 %; Eosinophils % 0.4 %; Hematocrit 39.8 % (35.3-44.9); Hemoglobin 12.6 g/dL (11.5-15.4); Immature Granulocytes % 1.7 % (0-4); Lymphocytes # 0.2 K/mcL (0.6-4.6); Lymphocytes % 2.2 %; Mean Corpuscular HGB Conc 31.7 g/dL (31.6-35.5); Mean Corpuscular Volume 85.4 fL (83.0-100.0); Mean Platelet Volume 9.8 fL (9.4-12.4); Monocytes # 0.6 K/mcL (0.0-1.3); Monocytes % 6.2 %; Neutrophils # 9.2 K/mcL (1.6-8.9); Platelet Count 297 K/mcL (140-400); Red Blood Count 4.66 M/mcL (3.82-4.97); Red Cell Distribution Width 15.6 % (11.5-14.5); White Blood Count 10.4 K/mcL (4.3-11.1)
[2021-09-07 10:21] LABS: VBG HCO3 29 mEq/L (21-27); VBG PCO2 38 mmHg (41-51); VBG PH 7.49 pH Units (7.32-7.42); VBG PO2 61 mmHg (25-50)
[2021-09-07 10:26] LABS: INR 1.1; Prothrombin Time 12.3 Seconds (9.4-12.1)
[2021-09-07 10:29] LABS: Activated Partial Thrombo Time 30.1 Seconds (26.0-36.0)
[2021-09-07 10:48] LABS: Amorphous Sediment,Urine Moderate per hpf (None-Few); Bilirubin,Urine Negative (Negative); Blood,Urine Trace (Negative); Clarity,Urine Ex.Turbid (Clear); Color,Urine Yellow (Yellow); Glucose,Urine (UA) Normal (Normal); Ketones,Urine Negative (Negative); Leukocyte Esterase,Urine Negative (Negative); Mucus,Urine Few per lpf (None-Few); Nitrite,Urine Negative (Negative); PH,Urine 7.5 pH Units (5.0-8.0); Protein,Urine Trace mg/dL (Neg-Trace); Squamous Epithelial Cell,Urine Few per hpf (None-Few); Urobilinogen,Urine Normal (Normal)
[2021-09-07 11:02] LABS: Alanine Aminotransferase 26 Units/L (7-52); Albumin 3.8 g/dL (3.5-5.7); Albumin/Globulin Ratio 1.2 (1.1-2.2); Alkaline Phosphatase 129 Units/L (34-104); Aspartate Amino Transferase 42 Units/L (13-39); BUN/Creatinine Ratio 28 (6-26); Bilirubin,Direct 0.1 mg/dL (0.0-0.2); Bilirubin,Indirect 0.3 mg/dL (0.0-1.0); Bilirubin,Total 0.4 mg/dL (0.3-1.0); Blood Urea Nitrogen 19 mg/dL (8-23); Calcium 9.2 mg/dL (8.6-10.3); Carbon Dioxide 30 mEq/L (23-29); Chloride 96 mEq/L (98-107); Globulin 3.3 g/dL (2.4-3.5); Glucose 173 mg/dL (70-105); Lipase 91 Units/L (11-82); Magnesium 1.5 mg/dL (1.6-2.6); Osmolality,Calculated 290 (280-300); Phosphorous 2.5 mg/dL (2.7-4.5); Potassium 3.7 mEq/L (3.5-5.1); Sodium 137 mEq/L (136-145); Total Protein 7.1 g/dL (6.4-8.9); Troponin I < 0.03 ng/mL (< 0.04); eGFR For African Americans > 60 (> 60); eGFR For Non-African Americans > 60 (> 60)
[2021-09-07 11:02] LABS: Influenza A PCR Negative (Negative); Influenza B PCR Negative (Negative); Resp. Syncytial Virus PCR Negative (Negative)
[2021-09-07 11:12] LABS: SARS-CoV-2 by PCR (In House) Positive (Negative)
[2021-09-07] MEDS ORDERED: Ondansetron 4 MG/2 ML VIAL IVP ONE (11:50)
[2021-09-07] MEDS ORDERED: Melatonin 3 MG TABLET PO PRN (12:08)
[2021-09-07] MEDS ORDERED: Ibuprofen 400 MG TABLET PO PRN (12:08)
[2021-09-07] MEDS ORDERED: Naloxone 0.4 MG/ML INJ IVP PRN (12:08)
[2021-09-07] MEDS ORDERED: Ondansetron ODT 4 MG TAB.RAPDIS SL PRN (12:08)
[2021-09-07] MEDS ORDERED: *HR* Metoprolol 5 MG/5 ML VIAL IVP ONE (22:35)
[2021-09-08 03:03] LABS: BUN/Creatinine Ratio 26 (6-26); Blood Urea Nitrogen 17 mg/dL (8-23); Carbon Dioxide 30 mEq/L (23-29); Chloride 100 mEq/L (98-107); Glucose 140 mg/dL (70-105); Osmolality,Calculated 290 (280-300); Potassium 3.7 mEq/L (3.5-5.1); Sodium 138 mEq/L (136-145); eGFR For African Americans > 60 (> 60); eGFR For Non-African Americans > 60 (> 60)
[2021-09-08 03:07] LABS: Basophils % 0.2 %; Hematocrit 35.9 % (35.3-44.9); Hemoglobin 11.1 g/dL (11.5-15.4); Immature Granulocytes % 1.5 % (0-4); Lymphocytes # 0.6 K/mcL (0.6-4.6); Lymphocytes % 6.5 %; Mean Corpuscular HGB Conc 30.9 g/dL (31.6-35.5); Mean Corpuscular Hemoglobin 27.2 pg (28.0-33.3); Monocytes # 0.9 K/mcL (0.0-1.3); Neutrophils # 7.1 K/mcL (1.6-8.9); Platelet Count 276 K/mcL (140-400); Red Blood Count 4.08 M/mcL (3.82-4.97); Red Cell Distribution Width 15.9 % (11.5-14.5); Segmented Neutrophils % 81.8 %; White Blood Count 8.7 K/mcL (4.3-11.1)
[2021-09-08] MEDS ORDERED: Ondansetron 4 MG/2 ML VIAL IVP PRN (12:11)
[2021-09-08] MEDS ORDERED: Isovue-370 500 ML BOTTLE IVP ONE (12:30)
[2021-09-08 13:03] LABS: Basophils % 0.3 %; Hematocrit 38.5 % (35.3-44.9); Hemoglobin 11.8 g/dL (11.5-15.4); Immature Granulocytes % 1.7 % (0-4); Lymphocytes # 0.5 K/mcL (0.6-4.6); Lymphocytes % 5.4 %; Mean Corpuscular HGB Conc 30.6 g/dL (31.6-35.5); Mean Corpuscular Hemoglobin 26.7 pg (28.0-33.3); Mean Corpuscular Volume 87.1 fL (83.0-100.0); Mean Platelet Volume 9.6 fL (9.4-12.4); Monocytes # 0.2 K/mcL (0.0-1.3); Monocytes % 2.5 %; Neutrophils # 8.6 K/mcL (1.6-8.9); Platelet Count 264 K/mcL (140-400); Red Blood Count 4.42 M/mcL (3.82-4.97); Segmented Neutrophils % 90.1 %; White Blood Count 9.6 K/mcL (4.3-11.1)
[2021-09-08 13:08] LABS: INR 1.1; Prothrombin Time 12.7 Seconds (9.4-12.1)
[2021-09-08] MEDS ORDERED: Aspirin 325 MG TABLET PO ONE (15:00)
[2021-09-08] MEDS: levoFLOXacin 750 MG/150 ML 750 MG/150 ML BAG IVPB SCH (17:09)
[2021-09-09 05:06] LABS: Basophils % 0.1 %; Hematocrit 38.7 % (35.3-44.9); Hemoglobin 11.7 g/dL (11.5-15.4); Immature Granulocytes % 1.4 % (0-4); Lymphocytes # 0.9 K/mcL (0.6-4.6); Lymphocytes % 6.1 %; Mean Corpuscular HGB Conc 30.2 g/dL (31.6-35.5); Mean Corpuscular Hemoglobin 26.5 pg (28.0-33.3); Mean Corpuscular Volume 87.6 fL (83.0-100.0); Mean Platelet Volume 9.7 fL (9.4-12.4); Neutrophils # 12.2 K/mcL (1.6-8.9); Platelet Count 294 K/mcL (140-400); Red Blood Count 4.42 M/mcL (3.82-4.97); Red Cell Distribution Width 15.9 % (11.5-14.5); Segmented Neutrophils % 85.4 %; White Blood Count 14.3 K/mcL (4.3-11.1)
[2021-09-09 05:14] LABS: INR 1.1; Prothrombin Time 12.8 Seconds (9.4-12.1)
[2021-09-09 05:30] LABS: Alanine Aminotransferase 83 Units/L (7-52); Albumin 3.8 g/dL (3.5-5.7); Albumin/Globulin Ratio 1.1 (1.1-2.2); Alkaline Phosphatase 137 Units/L (34-104); Aspartate Amino Transferase 69 Units/L (13-39); BUN/Creatinine Ratio 34 (6-26); Bilirubin,Total 0.4 mg/dL (0.3-1.0); Blood Urea Nitrogen 25 mg/dL (8-23); Calcium 8.7 mg/dL (8.6-10.3); Carbon Dioxide 28 mEq/L (23-29); Chloride 100 mEq/L (98-107); Chol/HDL Ratio 2.1 (0-4.9); Cholesterol 107 mg/dL (< 200); Globulin 3.6 g/dL (2.4-3.5); Glucose 143 mg/dL (70-105); HDL Cholesterol 50 mg/dL (40-59); LDL Cholesterol,Calculated 43 mg/dL (< 100); Magnesium 1.9 mg/dL (1.6-2.6); Osmolality,Calculated 293 (280-300); Phosphorous 3.2 mg/dL (2.7-4.5); Potassium 3.5 mEq/L (3.5-5.1); Sodium 138 mEq/L (136-145); Total Protein 7.4 g/dL (6.4-8.9); Triglycerides 71 mg/dL (< 150); Troponin I < 0.03 ng/mL (< 0.04); eGFR For African Americans > 60 (> 60); eGFR For Non-African Americans > 60 (> 60)
[2021-09-09] MEDS: Aspirin 81 MG TAB.CHEW PO SCH (08:48)
[2021-09-09] MEDS: levoFLOXacin 750 MG/150 ML 750 MG/150 ML BAG IVPB SCH (08:49)
[2021-09-09 11:16] LABS: Estimated Average Glucose 160 mg/dl; Hemoglobin A1C 7.2 %
[2021-09-10 07:57] LABS: Basophils % 0.2 %; Hematocrit 40.2 % (35.3-44.9); Hemoglobin 12.4 g/dL (11.5-15.4); Lymphocytes # 1.1 K/mcL (0.6-4.6); Mean Corpuscular HGB Conc 30.8 g/dL (31.6-35.5); Mean Corpuscular Hemoglobin 26.8 pg (28.0-33.3); Mean Corpuscular Volume 86.8 fL (83.0-100.0); Mean Platelet Volume 9.5 fL (9.4-12.4); Monocytes # 0.9 K/mcL (0.0-1.3); Monocytes % 9.2 %; Neutrophils # 7.2 K/mcL (1.6-8.9); Platelet Count 294 K/mcL (140-400); Red Blood Count 4.63 M/mcL (3.82-4.97); Red Cell Distribution Width 16.1 % (11.5-14.5); Segmented Neutrophils % 76.6 %; White Blood Count 9.4 K/mcL (4.3-11.1)
[2021-09-10 08:12] LABS: BUN/Creatinine Ratio 48 (6-26); Blood Urea Nitrogen 32 mg/dL (8-23); Calcium 8.7 mg/dL (8.6-10.3); Carbon Dioxide 29 mEq/L (23-29); Chloride 102 mEq/L (98-107); Glucose 124 mg/dL (70-105); Osmolality,Calculated 296 (280-300); Phosphorous 2.2 mg/dL (2.7-4.5); Potassium 3.7 mEq/L (3.5-5.1); Sodium 139 mEq/L (136-145); eGFR For African Americans > 60 (> 60); eGFR For Non-African Americans > 60 (> 60)
[2021-09-10] MEDS: Aspirin 81 MG TAB.CHEW PO SCH (08:24)
[2021-09-10] MEDS: levoFLOXacin 750 MG/150 ML 750 MG/150 ML BAG IVPB SCH (08:27)
[2021-09-11 01:07] LABS: Basophils % 0.4 %; Hematocrit 39.7 % (35.3-44.9); Hemoglobin 12.5 g/dL (11.5-15.4); Lymphocytes % 12.4 %; Mean Corpuscular HGB Conc 31.5 g/dL (31.6-35.5); Mean Corpuscular Hemoglobin 27.6 pg (28.0-33.3); Mean Corpuscular Volume 87.6 fL (83.0-100.0); Mean Platelet Volume 9.4 fL (9.4-12.4); Monocytes # 0.7 K/mcL (0.0-1.3); Monocytes % 9.3 %; Platelet Count 310 K/mcL (140-400); Red Blood Count 4.53 M/mcL (3.82-4.97); Segmented Neutrophils % 75.9 %; White Blood Count 7.9 K/mcL (4.3-11.1)
[2021-09-11 01:31] LABS: BUN/Creatinine Ratio 50 (6-26); Blood Urea Nitrogen 34 mg/dL (8-23); Calcium 8.6 mg/dL (8.6-10.3); Carbon Dioxide 25 mEq/L (23-29); Chloride 106 mEq/L (98-107); Glucose 139 mg/dL (70-105); Magnesium 2.1 mg/dL (1.6-2.6); Osmolality,Calculated 296 (280-300); Potassium 3.8 mEq/L (3.5-5.1); Sodium 138 mEq/L (136-145); eGFR For African Americans > 60 (> 60); eGFR For Non-African Americans > 60 (> 60)
[2021-09-11] MEDS: Aspirin 81 MG TAB.CHEW PO SCH (08:40)
[2021-09-11] MEDS: levoFLOXacin 750 MG/150 ML 750 MG/150 ML BAG IVPB SCH (08:41)
[2021-09-11 14:17] VITALS: BP 127/61; PULSE 72; TEMP 98.3; O2SAT 95
== END 2021-09-11 15:55 | disposition home health service (06) | DRG 177 ==
LOC: EMEROOARM 09:46 → 3BNU 09:46
PROVIDERS: ADMIT Student in an Organized Health Care Education/Training Program; ATTEND Student in an Organized Health Care Education/Training Program

== ENCOUNTER 2021-09-16 09:10 | Inpatient (IN) ==
[2021-09-16 10:43] LABS: Basophils % 0.3 %; Eosinophils % 0.1 %; Hematocrit 39.9 % (35.3-44.9); Hemoglobin 12.7 g/dL (11.5-15.4); Immature Granulocytes % 1.3 % (0-4); Lymphocytes # 1.3 K/mcL (0.6-4.6); Lymphocytes % 13.9 %; Mean Corpuscular HGB Conc 31.8 g/dL (31.6-35.5); Mean Corpuscular Volume 84.9 fL (83.0-100.0); Mean Platelet Volume 10.9 fL (9.4-12.4); Monocytes # 0.6 K/mcL (0.0-1.3); Monocytes % 6.9 %; Platelet Count 230 K/mcL (140-400); Red Cell Distribution Width 15.5 % (11.5-14.5); Segmented Neutrophils % 77.5 %
[2021-09-16 10:50] LABS: INR 1.1; Prothrombin Time 12.1 Seconds (9.4-12.1)
[2021-09-16 10:53] LABS: Activated Partial Thrombo Time 26.6 Seconds (26.0-36.0)
[2021-09-16] MEDS: 0.9 % Sodium Chloride 1,000 ML IVC SCH (10:53)
[2021-09-16 11:02] LABS: Alanine Aminotransferase 30 Units/L (7-52); Albumin 3.7 g/dL (3.5-5.7); Albumin/Globulin Ratio 1.1 (1.1-2.2); Alkaline Phosphatase 105 Units/L (34-104); Aspartate Amino Transferase 20 Units/L (13-39); BUN/Creatinine Ratio 31 (6-26); Bilirubin,Direct 0.2 mg/dL (0.0-0.2); Bilirubin,Indirect 0.3 mg/dL (0.0-1.0); Bilirubin,Total 0.5 mg/dL (0.3-1.0); Blood Urea Nitrogen 20 mg/dL (8-23); C-Reactive Protein 41 mg/L (Less than 10); Calcium 9.9 mg/dL (8.6-10.3); Carbon Dioxide 34 mEq/L (23-29); Chloride 95 mEq/L (98-107); Globulin 3.3 g/dL (2.4-3.5); Glucose 145 mg/dL (70-105); Magnesium 1.4 mg/dL (1.6-2.6); Osmolality,Calculated 293 (280-300); Potassium 2.9 mEq/L (3.5-5.1); Sodium 139 mEq/L (136-145); Troponin I 0.03 ng/mL (< 0.04); eGFR For African Americans > 60 (> 60); eGFR For Non-African Americans > 60 (> 60)
[2021-09-16 11:09] LABS: Bilirubin,Urine Negative (Negative); Blood,Urine Negative (Negative); Clarity,Urine Clear (Clear); Color,Urine Yellow (Yellow); Glucose,Urine (UA) Normal (Normal); Ketones,Urine Negative (Negative); Leukocyte Esterase,Urine Negative (Negative); Nitrite,Urine Negative (Negative); Protein,Urine Trace mg/dL (Neg-Trace); Specific Gravity,Urine 1.028 (1.010-1.025)
[2021-09-16] MEDS ORDERED: 0.9 % Sodium Chloride 1,000 ML IVC ONE (11:31)
[2021-09-16] MEDS ORDERED: Isovue-370 500 ML BOTTLE IVP ONE ×2 (11:31→11:35)
[2021-09-16] MEDS ORDERED: Magnesium Oxide 400 MG TABLET PO ONE (11:33)
[2021-09-16] MEDS ORDERED: Magnesium Sulfate 1 GM/102 ML PIGGYBACK IVPB ONE (12:25)
[2021-09-16] MEDS ORDERED: Potassium Chloride Elixir 20 MEQ/15 ML UDC PO ONE (12:25)
[2021-09-16] MEDS ORDERED: *HR* Heparin 5,000 UNIT/ML VIAL IVP PRN ×2 (13:51)
[2021-09-16] MEDS ORDERED: *HR* Heparin 5,000 UNIT/ML VIAL IVP ONE (13:51)
[2021-09-16] MEDS: Heparin 25,000UNIT/250ML 1/2NS 25,000 UNIT/250 ML IV.SOLN IVC SCH (14:33)
[2021-09-16] MEDS ORDERED: Naloxone 0.4 MG/ML INJ IVP PRN (14:49)
[2021-09-16] MEDS ORDERED: Acetaminophen 325 MG TABLET PO PRN (14:49)
[2021-09-16] MEDS ORDERED: Ondansetron 4 MG/2 ML VIAL IVP PRN (14:49)
[2021-09-16] MEDS ORDERED: *HR* OxyCODONE Immed Rel 5 MG TABLET PO PRN (14:49)
[2021-09-17 00:55] LABS: Basophils % 0.3 %; Eosinophils # 0.1 K/mcL (0.0-0.6); Eosinophils % 0.6 %; Hematocrit 36.3 % (35.3-44.9); Hemoglobin 11.3 g/dL (11.5-15.4); Immature Granulocytes % 1.4 % (0-4); Lymphocytes # 1.2 K/mcL (0.6-4.6); Lymphocytes % 13.4 %; Mean Corpuscular HGB Conc 31.1 g/dL (31.6-35.5); Mean Corpuscular Hemoglobin 26.8 pg (28.0-33.3); Mean Platelet Volume 10.5 fL (9.4-12.4); Monocytes # 0.7 K/mcL (0.0-1.3); Monocytes % 7.8 %; Neutrophils # 6.6 K/mcL (1.6-8.9); Platelet Count 219 K/mcL (140-400); Red Blood Count 4.22 M/mcL (3.82-4.97); Red Cell Distribution Width 15.9 % (11.5-14.5); Segmented Neutrophils % 76.5 %; White Blood Count 8.6 K/mcL (4.3-11.1)
[2021-09-17 01:15] LABS: BUN/Creatinine Ratio 27 (6-26); Blood Urea Nitrogen 14 mg/dL (8-23); Calcium 8.1 mg/dL (8.6-10.3); Carbon Dioxide 28 mEq/L (23-29); Chloride 102 mEq/L (98-107); Glucose 124 mg/dL (70-105); Magnesium 1.5 mg/dL (1.6-2.6); Osmolality,Calculated 288 (280-300); Potassium 3.2 mEq/L (3.5-5.1); Sodium 138 mEq/L (136-145); eGFR For African Americans > 60 (> 60); eGFR For Non-African Americans > 60 (> 60)
[2021-09-17] MEDS: 0.9 % Sodium Chloride 1,000 ML IVC SCH (07:23)
[2021-09-17] MEDS: Magnesium Oxide 400 MG TABLET PO SCH ×2 (09:51→20:43)
[2021-09-17] MEDS: Heparin 25,000UNIT/250ML 1/2NS 25,000 UNIT/250 ML IV.SOLN IVC SCH ×2 (15:41→23:45)
[2021-09-18 03:03] LABS: Basophils # 0.1 K/mcL (0.0-0.2); Basophils % 0.6 %; Eosinophils % 0.5 %; Hematocrit 36.3 % (35.3-44.9); Hemoglobin 11.2 g/dL (11.5-15.4); Immature Granulocytes % 2.7 % (0-4); Lymphocytes # 1.3 K/mcL (0.6-4.6); Lymphocytes % 15.1 %; Mean Corpuscular HGB Conc 30.9 g/dL (31.6-35.5); Mean Corpuscular Hemoglobin 26.5 pg (28.0-33.3); Mean Corpuscular Volume 85.8 fL (83.0-100.0); Mean Platelet Volume 10.5 fL (9.4-12.4); Monocytes # 0.8 K/mcL (0.0-1.3); Monocytes % 9.5 %; Neutrophils # 6.3 K/mcL (1.6-8.9); Platelet Count 254 K/mcL (140-400); Red Blood Count 4.23 M/mcL (3.82-4.97); Red Cell Distribution Width 16.1 % (11.5-14.5); Segmented Neutrophils % 71.6 %; White Blood Count 8.7 K/mcL (4.3-11.1)
[2021-09-18 03:19] LABS: BUN/Creatinine Ratio 28 (6-26); Blood Urea Nitrogen 17 mg/dL (8-23); Calcium 8.3 mg/dL (8.6-10.3); Carbon Dioxide 25 mEq/L (23-29); Chloride 105 mEq/L (98-107); Glucose 143 mg/dL (70-105); Magnesium 1.9 mg/dL (1.6-2.6); Osmolality,Calculated 286 (280-300); Potassium 3.7 mEq/L (3.5-5.1); Sodium 136 mEq/L (136-145); eGFR For African Americans > 60 (> 60); eGFR For Non-African Americans > 60 (> 60)
[2021-09-18] MEDS: Magnesium Oxide 400 MG TABLET PO SCH ×2 (08:57→22:07)
[2021-09-18] MEDS: *HR* Rivaroxaban 15 MG TABLET PO SCH ×2 (09:03→22:07)
[2021-09-19 02:55] LABS: BUN/Creatinine Ratio 26 (6-26); Blood Urea Nitrogen 15 mg/dL (8-23); Calcium 8.4 mg/dL (8.6-10.3); Carbon Dioxide 23 mEq/L (23-29); Chloride 105 mEq/L (98-107); Glucose 127 mg/dL (70-105); Osmolality,Calculated 282 (280-300); Sodium 135 mEq/L (136-145); eGFR For African Americans > 60 (> 60); eGFR For Non-African Americans > 60 (> 60)
[2021-09-19] MEDS: Magnesium Oxide 400 MG TABLET PO SCH (08:13)
[2021-09-19] MEDS: *HR* Rivaroxaban 15 MG TABLET PO SCH (08:13)
[2021-09-19] MEDS ORDERED: *HR* Dextrose 50 % in Water (Syg) 50 ML SYRINGE IVP PRN (08:18)
[2021-09-19] MEDS ORDERED: D5% in Water 1,000 ML IVC PRN (08:18)
[2021-09-19] MEDS ORDERED: Dextrose Gel 15 GM/37.5 ML TUBE PO PRN ×2 (08:18)
[2021-09-19] MEDS ORDERED: Cholecalciferol (D-3) 1,000 UNIT (25MCG) TABLET PO SCH (09:00)
[2021-09-19] MEDS ORDERED: hydroCHLOROthiazide 25 MG TABLET PO SCH (09:00)
[2021-09-19] MEDS ORDERED: allopurinoL 100 MG TABLET PO SCH (09:00)
[2021-09-19] MEDS ORDERED: amLODIPine 5 MG TABLET PO SCH (09:00)
[2021-09-19] MEDS ORDERED: risperiDONE 1 MG TABLET PO SCH (09:00)
[2021-09-19] MEDS: Carbidopa/Levodopa 25/100 TABLET PO SCH ×2 (09:21→14:13)
[2021-09-19] MEDS: Insulin LISPRO 300 UNITS/3 ML VIAL SUBQ SCH ×2 (11:59→15:49)
[2021-09-19 15:18] VITALS: BP 132/82; PULSE 103; TEMP 98.6; O2SAT 94
[2021-10-09] MEDS ORDERED: *HR* Rivaroxaban 10 MG TABLET PO SCH (17:00)
== END 2021-09-19 18:39 | DRG 176 ==
LOC: EMEROOARM 09:10 → 3BNU 09:10 → SUATTDRO 09-18 11:20
PROVIDERS: ADMIT Pharmacist; ATTEND Internal Medicine

== ENCOUNTER 2022-04-29 14:46 | Inpatient (IN) ==
[2022-04-29] MEDS ORDERED: Piperacillin/Tazobactam 3.375 GM in 0.9 % Sodium Chloride Mini Bag 100 ML IVPB ONE (15:12)
[2022-04-29] MEDS ORDERED: 0.9 % Sodium Chloride 1,000 ML IVC ONE (15:12)
[2022-04-29] MEDS ORDERED: 0.9 % Sodium Chloride 1,000 ML ONE (23:56)
[2022-04-30] MEDS ORDERED: risperiDONE 1 MG TABLET ONE (01:43)
[2022-04-30] MEDS: Carbidopa/Levodopa 25/100 TABLET PO SCH ×4 (01:50→20:25)
[2022-04-30] MEDS ORDERED: Piperacillin/Tazobactam 3.375 GM VIAL ONE (01:52)
[2022-04-30] MEDS ORDERED: 0.9 % Sodium Chloride Mini Bag 100 ML ONE (01:53)
[2022-04-30] MEDS ORDERED: Acetaminophen 325 MG TABLET PO PRN (02:37)
[2022-04-30] MEDS ORDERED: Ondansetron 4 MG/2 ML VIAL IVP PRN (02:38)
[2022-04-30] MEDS ORDERED: Naloxone 0.4 MG/ML INJ IVP PRN (02:43)
[2022-04-30] MEDS ORDERED: Melatonin 3 MG TABLET PO PRN (02:43)
[2022-04-30] MEDS ORDERED: 0.9 % Sodium Chloride 1,000 ML IVC SCH (02:45)
[2022-04-30] MEDS ORDERED: D5% in Water 1,000 ML IVC PRN (02:55)
[2022-04-30] MEDS ORDERED: *HR* Dextrose 50 % in Water (Syg) 50 ML SYRINGE IVP PRN (02:55)
[2022-04-30] MEDS ORDERED: Dextrose Gel 15 GM/37.5 ML TUBE PO PRN ×2 (02:55)
[2022-04-30 05:53] LABS: Basophils % 0.2 %; Eosinophils % 0.1 %; Hematocrit 33.6 % (35.3-44.9); Immature Granulocytes % 0.7 % (0-4); Lymphocytes # 1.1 K/mcL (0.6-4.6); Lymphocytes % 5.2 %; Mean Corpuscular HGB Conc 30.4 g/dL (31.6-35.5); Mean Corpuscular Hemoglobin 25.5 pg (28.0-33.3); Mean Platelet Volume 9.8 fL (9.4-12.4); Monocytes # 0.8 K/mcL (0.0-1.3); Monocytes % 3.9 %; Neutrophils # 19.4 K/mcL (1.6-8.9); Platelet Count 310 K/mcL (140-400); Red Cell Distribution Width 17.9 % (11.5-14.5); Segmented Neutrophils % 89.9 %; White Blood Count 21.6 K/mcL (4.3-11.1)
[2022-04-30 06:04] LABS: Hemoglobin 10.2 g/dL (11.5-15.4)
[2022-04-30 06:08] LABS: INR 1.4; Prothrombin Time 15.4 Seconds (9.4-12.1)
[2022-04-30 06:16] LABS: Albumin 3.1 g/dL (3.5-5.7); Albumin/Globulin Ratio 0.8 (1.1-2.2); Bilirubin,Total 0.7 mg/dL (0.3-1.0); Globulin 3.7 g/dL (2.4-3.5); Magnesium 2.1 mg/dL (1.6-2.6); Phosphorous 4.9 mg/dL (2.7-4.5); Potassium 3.2 mEq/L (3.5-5.1); Total Protein 6.8 g/dL (6.4-8.9)
[2022-04-30] MEDS ORDERED: Vancomycin 1 EACH in 0.9 % Sodium Chloride 250 ML IVPB PRN (07:00)
[2022-04-30 08:39] LABS: Influenza A PCR Negative (Negative); Influenza B PCR Negative (Negative); Resp. Syncytial Virus PCR Negative (Negative); SARS-CoV-2 by PCR (In House) Negative (Negative)
[2022-04-30] MEDS: Ringers Solution, Lactated 1,000 ML IVC SCH ×2 (09:39→20:24)
[2022-04-30] MEDS: risperiDONE 1 MG TABLET PO SCH ×2 (09:40→20:25)
[2022-04-30] MEDS: Aspirin Enteric Coated 81 MG Tablet PO SCH (09:40)
[2022-04-30] MEDS: Piperacillin/Tazobactam 3.375 GM in 0.9 % Sodium Chloride Mini Bag 100 ML IVPB SCH ×2 (09:40→18:10)
[2022-04-30] MEDS: Lactobacillus 1 EACH CAP.SPRINK PO SCH ×2 (09:40→20:25)
[2022-04-30] MEDS: carvediloL 6.25 MG TABLET PO SCH ×2 (09:40→18:12)
[2022-04-30] MEDS: *HR* Rivaroxaban 10 MG TABLET PO SCH (18:12)
[2022-05-01] MEDS: Piperacillin/Tazobactam 3.375 GM in 0.9 % Sodium Chloride Mini Bag 100 ML IVPB SCH ×3 (00:21→16:04)
[2022-05-01 01:11] LABS: Basophils % 0.2 %; Eosinophils # 0.1 K/mcL (0.0-0.6); Eosinophils % 0.7 %; Hematocrit 30.2 % (35.3-44.9); Hemoglobin 9.1 g/dL (11.5-15.4); Immature Granulocytes % 0.6 % (0-4); Lymphocytes # 1.4 K/mcL (0.6-4.6); Lymphocytes % 7.8 %; Mean Corpuscular HGB Conc 30.1 g/dL (31.6-35.5); Mean Corpuscular Hemoglobin 25.2 pg (28.0-33.3); Mean Corpuscular Volume 83.7 fL (83.0-100.0); Mean Platelet Volume 10.1 fL (9.4-12.4); Monocytes # 0.7 K/mcL (0.0-1.3); Platelet Count 296 K/mcL (140-400); Red Blood Count 3.61 M/mcL (3.82-4.97); Red Cell Distribution Width 17.6 % (11.5-14.5); Segmented Neutrophils % 86.7 %; White Blood Count 18.4 K/mcL (4.3-11.1)
[2022-05-01 01:54] LABS: BUN/Creatinine Ratio 45 (6-26); Blood Urea Nitrogen 33 mg/dL (8-23); Calcium 8.8 mg/dL (8.6-10.3); Carbon Dioxide 26 mEq/L (23-29); Chloride 108 mEq/L (98-107); Glucose 116 mg/dL (70-105); Osmolality,Calculated 306 (280-300); Potassium 2.5 mEq/L (3.5-5.1); Sodium 144 mEq/L (136-145)
[2022-05-01 02:16] LABS: Magnesium 1.9 mg/dL (1.6-2.6)
[2022-05-01] MEDS: carvediloL 6.25 MG TABLET PO SCH ×2 (07:41→16:04)
[2022-05-01] MEDS: risperiDONE 1 MG TABLET PO SCH ×2 (07:41→22:10)
[2022-05-01] MEDS: Carbidopa/Levodopa 25/100 TABLET PO SCH ×3 (07:41→22:10)
[2022-05-01] MEDS: Lactobacillus 1 EACH CAP.SPRINK PO SCH ×2 (07:41→22:10)
[2022-05-01] MEDS: Aspirin Enteric Coated 81 MG Tablet PO SCH (07:43)
[2022-05-01 08:21] LABS: Calcium 8.6 mg/dL (8.6-10.3); Potassium 3.1 mEq/L (3.5-5.1)
[2022-05-01] MEDS: *HR* Rivaroxaban 10 MG TABLET PO SCH (16:04)
[2022-05-02] MEDS: Piperacillin/Tazobactam 3.375 GM in 0.9 % Sodium Chloride Mini Bag 100 ML IVPB SCH ×2 (00:48→09:14)
[2022-05-02 03:20] LABS: Basophils % 0.2 %; Eosinophils # 0.2 K/mcL (0.0-0.6); Eosinophils % 1.4 %; Hematocrit 29.2 % (35.3-44.9); Hemoglobin 8.7 g/dL (11.5-15.4); Immature Granulocytes % 0.6 % (0-4); Lymphocytes # 1.5 K/mcL (0.6-4.6); Lymphocytes % 12.1 %; Mean Corpuscular HGB Conc 29.8 g/dL (31.6-35.5); Mean Corpuscular Hemoglobin 25.6 pg (28.0-33.3); Mean Corpuscular Volume 85.9 fL (83.0-100.0); Mean Platelet Volume 10.1 fL (9.4-12.4); Monocytes # 0.6 K/mcL (0.0-1.3); Neutrophils # 9.6 K/mcL (1.6-8.9); Platelet Count 279 K/mcL (140-400); Red Cell Distribution Width 17.4 % (11.5-14.5); Segmented Neutrophils % 80.7 %; White Blood Count 11.9 K/mcL (4.3-11.1)
[2022-05-02 03:41] LABS: BUN/Creatinine Ratio 38 (6-26); Blood Urea Nitrogen 25 mg/dL (8-23); Calcium 8.5 mg/dL (8.6-10.3); Carbon Dioxide 28 mEq/L (23-29); Chloride 108 mEq/L (98-107); Glucose 95 mg/dL (70-105); Osmolality,Calculated 304 (280-300); Potassium 2.9 mEq/L (3.5-5.1); Sodium 145 mEq/L (136-145)
[2022-05-02 06:55] VITALS: TEMP 97.2
[2022-05-02] MEDS: Carbidopa/Levodopa 25/100 TABLET PO SCH ×2 (09:16→15:12)
[2022-05-02] MEDS: risperiDONE 1 MG TABLET PO SCH (09:16)
[2022-05-02] MEDS: Lactobacillus 1 EACH CAP.SPRINK PO SCH (09:17)
[2022-05-02] MEDS: carvediloL 6.25 MG TABLET PO SCH (09:17)
[2022-05-02] MEDS: Aspirin Enteric Coated 81 MG Tablet PO SCH (09:17)
[2022-05-02 09:51] VITALS: O2SAT 100
[2022-05-02 11:32] VITALS: BP 124/35; PULSE 65
[2022-05-02 12:34] LABS: BUN/Creatinine Ratio 41 (6-26); Blood Urea Nitrogen 24 mg/dL (8-23); Calcium 8.5 mg/dL (8.6-10.3); Carbon Dioxide 29 mEq/L (23-29); Chloride 108 mEq/L (98-107); Glucose 127 mg/dL (70-105); Osmolality,Calculated 306 (280-300); Potassium 3.4 mEq/L (3.5-5.1); Sodium 145 mEq/L (136-145)
== END 2022-05-02 18:11 | disposition home health service (06) | DRG 698 ==
LOC: EMEROOARM 14:46 → 3NENU 14:46 → SUATTDRO 04-30 04:58
PROVIDERS: ADMIT Internal Medicine; ATTEND Family Medicine